=== PATIENT | male | born 1955 | race African-American/Black ===

== ENCOUNTER 2017-04-11 10:57 | Inpatient (IN) | payer OTHER ==
[~2017-04-11] VITALS: Ht 177.8 cm; Wt 80.3 kg
[~2017-04-11 10:57] MED LIST: AMLO10TA2 PO; AMLO5TAB2 PO; ASPI-630 PO; ATEN100T PO; ATOR40TA59 PO; CLON0.2T PO; FLUT12AE PO; IPRA3AMP NEB; LEVO500T59 PO; METF500T4 PO; METO100T11 PO; PANT40TA3 PO; PANT40TA5 PO; PROAIR HFA8.5 GM IH; RIVA10TA PO; VENTOLIN HFA18 GM PO
[2017-04-11] MEDS ORDERED: IPRATRPIUM/ALBUTEROL 0.5/2.5MG 3 ML NEBU. NEB ONE (11:00)
[2017-04-11] MEDS: ALBUTEROL SULFATE 2.5 MG/3 ML NEBU. NEB PRN (11:08)
[2017-04-11] MEDS ORDERED: methylPREDNISolone SOD SUCC PF 125 MG/2 ML VIAL. IV ONE (11:15)
[2017-04-11 11:20] LABS: BASO # 0.1 x10^3/uL (0.0-0.2); BASO % 1 % (0-3); EOS % 7 % (0-3); HEMATOCRIT 41.6 % (39.0-53.0); LYMPH # 2.7 x10^3/uL (1.0-4.8); LYMPH % 19 % (24-48); MEAN CORPUSCULAR HEMOGLOBIN 32 pg (25-35); MEAN CORPUSCULAR HGB CONC 34 g/dL (31-37); MEAN CORPUSCULAR VOLUME 94 fL (79-100); MONO % 6 % (0-9); NEUT % 67 % (31-73); PLATELET COUNT 234 x10^3/uL (140-400); RED BLOOD COUNT 4.43 x10^6/uL (4.30-5.70); WHITE BLOOD COUNT 13.7 x10^3/uL (4.0-11.0)
[2017-04-11 11:31] LABS: CALCIUM 8.7 mg/dL (8.5-10.1); GFR 91.6; POTASSIUM 4.1 mmol/L (3.5-5.1)
[2017-04-11 11:37] LABS: ALBUMIN 4.3 g/dL (3.4-5.0); DIRECT BILIRUBIN 0.2 mg/dL (0.0-0.2); TOTAL BILIRUBIN 0.8 mg/dL (0.2-1.0); TOTAL PROTEIN 7.4 g/dL (6.4-8.2)
--- NOTE | 2017-04-11 12:12 | RAD ---
Chest radiograph 04/11/2017 at 1201 hours Indication: Shortness of air Comparison: Chest radiograph 03/18/2016 at 0055 hours Technique: Single frontal view of the chest is provided. Findings: Cardiomediastinal silhouette is within normal limits. No pleural effusions, pulmonary vascular congestion or pneumothorax. The lungs are clear. Osseous structures are normal. Impression: No acute cardiopulmonary process.
[2017-04-11] MEDS ORDERED: MORPHINE SULFATE 2 MG/ML DISP.SYRIN. IV PRN (12:15)
[2017-04-11] MEDS ORDERED: ONDANSETRON PF 4 MG/2 ML VIAL. IV PRN (12:15)
--- NOTE | 2017-04-11 13:28 | PHYS DOC ---
Past Medical History Past Medical History: COPD, Diabetes-Type II, Hypertension, Vascular Disease, Other Additional Past Medical Histor: "blood clots" Past Surgical History: Other Additional Past Surgical Histo: L calf thrombectomy, RT FEM POP,CLIP PLACED IN COLON Alcohol Use: Occasionally Drug Use: None Adult General Chief Complaint Chief Complaint: DYSPNEA/RESPIRATOY DISTRESS HPI HPI 62-year-old male presenting to the emergency department today by EMS with a history of COPD with asthma/COPD acute respiratory distress. Per EMS report the patient received intramuscular epinephrine in route. The patient comes in on a nonrebreather. His shortness of breath started approximately 2 days ago. Location lungs. Duration intermittent. No alleviating or exacerbating factors present. Review of systems is negative for fevers chills cough abdominal pain nausea vomiting or diaphoresis. All other review of systems is negative unless otherwise noted in history of present illness. ED course: 62-year-old male presenting with acute respiratory distress. On initial evaluation the patient had diffuse wheezing with minimal breath sounds bilaterally and a severely prolonged expiratory phase. The patient was given 2 nebulizer therapies and placed on an hour-long treatment of albuterol. Chest x- ray and blood work sent. On reexamination approximately 20 minutes into the patient's course the patient significantly improved. Initially we coordinated the patient be placed on BiPAP which on reevaluation was unnecessary. Given the patient's improvement the patient was admitted to our med telemetry floor. Initially we had requested an ICU bed for him. I discussed this case with Dr. Jacobs who accepted the patient for admission. The patient was then admitted to our hospital for further evaluation workup and care. Pulmonology consult was placed. Review of Systems Review of Systems SEE ABOVE. Current Medications Current Medications Current Medications Medications (Trade) Dose Ordered Sig/Hailee Start Time Stop Time Status Last Admin Dose Admin Albuterol Sulfate (Ventolin Neb Soln) 2.5 mg PRN Q2HR PRN 04/11/17 11:00 04/11/17 11:08 2.5 MG Albuterol/ Ipratropium (Duoneb) 3 ml 1X ONCE 04/11/17 11:00 04/11/17 11:01 DC 04/11/17 11:07 3 ML Allergies Allergies Allergies Coded Allergies Type Severity Reaction Last Updated Verified Penicillins Allergy Intermediate rash 11/15/14 Yes Physical Exam Physical Exam SEE ABOVE Constitutional: Well developed, well nourished, initially the patient was in respiratory distress which improved within the first 15 minutes the patient's care. On the second examination, the patient was breathing more comfortably and not in any distress. HENT: Normocephalic, atraumatic, bilateral external ears normal, oropharynx moist, no oral exudates, nose normal. [] Eyes: PERRLA, EOMI, conjunctiva normal, no discharge. [] Neck: Normal range of motion, no tenderness, supple, no stridor. [] Cardiovascular:Heart rate regular rhythm, no murmur [] Lungs & Thorax: Wheezing bilaterally. Abdomen: Bowel sounds normal, soft, no tenderness, no masses, no pulsatile masses. [] Skin: Warm, dry, no erythema, no rash. [] Back: No tenderness, no CVA tenderness. [] Extremities: No tenderness, no cyanosis, no clubbing, ROM intact, no edema. [] Neurologic: Alert and oriented X 3, normal motor function, normal sensory function, no focal deficits noted. [] Psychologic: Affect normal, judgement normal, mood normal. [] Current Patient Data Vital Signs Vital Signs Date Time Temp Pulse Resp B/P (MAP) Pulse Ox O2 Delivery O2 Flow Rate FiO2 04/11/17 10:59 120 153/87 (109) 100 NonRebreather Mask Lab Values Laboratory Tests Test 04/11/17 11:00 White Blood Count 13.7 x10^3/uL (4.0-11.0) H Red Blood Count 4.43 x10^6/uL (4.30-5.70) Hemoglobin 14.0 g/dL (13.0-17.5) Hematocrit 41.6 % (39.0-53.0) Mean Corpuscular Volume 94 fL (79-100) Mean Corpuscular Hemoglobin 32 pg (25-35) Mean Corpuscular Hemoglobin Concent 34 g/dL (31-37) Red Cell Distribution Width 14.0 % (11.5-14.5) Platelet Count 234 x10^3/uL (140-400) Neutrophils (%) (Auto) 67 % (31-73) Lymphocytes (%) (Auto) 19 % (24-48) L Monocytes (%) (Auto) 6 % (0-9) Eosinophils (%) (Auto) 7 % (0-3) H Basophils (%) (Auto) 1 % (0-3) Neutrophils # (Auto) 9.1 x10^3uL (1.8-7.7) H Lymphocytes # (Auto) 2.7 x10^3/uL (1.0-4.8) Monocytes # (Auto) 0.9 x10^3/uL (0.0-1.1) Eosinophils # (Auto) 0.9 x10^3/uL (0.0-0.7) H Basophils # (Auto) 0.1 x10^3/uL (0.0-0.2) Sodium Level 136 mmol/L (136-145) Potassium Level 4.1 mmol/L (3.5-5.1) Chloride Level 99 mmol/L (98-107) Carbon Dioxide Level 26 mmol/L (21-32) Anion Gap 11 (6-14) Blood Urea Nitrogen 11 mg/dL (8-26) Creatinine 1.0 mg/dL (0.7-1.3) Estimated GFR (Cockcroft-Gault) 91.6 Glucose Level 253 mg/dL (70-99) H Calcium Level 8.7 mg/dL (8.5-10.1) Total Bilirubin 0.8 mg/dL (0.2-1.0) Direct Bilirubin 0.2 mg/dL (0.0-0.2) Aspartate Amino Transferase (AST) 26 U/L (15-37) Alanine Aminotransferase (ALT) 39 U/L (16-63) Alkaline Phosphatase 72 U/L (46-116) Troponin I Quantitative < 0.017 ng/mL (0.000-0.055) SR-Rds-I-Type Natriuretic Peptide 13 pg/mL (0-124) Total Protein 7.4 g/dL (6.4-8.2) Albumin 4.3 g/dL (3.4-5.0) Lipase 127 U/L (73-393) Laboratory Tests 04/11/17 11:00 Laboratory Tests 04/11/17 11:00 EKG EKG [] Radiology/Procedures Radiology/Procedures [] Course & Med Decision Making Course & Med Decision Making Pertinent Labs and Imaging studies reviewed. (See chart for details) [] Dragon Disclaimer Dragon Disclaimer This electronic medical record was generated, in whole or in part, using a voice recognition dictation system. Departure Departure Impression: Primary Impression: COPD with acute exacerbation Additional Impression: Respiratory failure, [id number] Disposition: ADMITTED INPATIENT Admitting Physician: Rakel Jacobs Condition: STABLE Referrals: DHAVAL BILLINGS MD (PCP) Critical Care Time Critical care time was [40] minutes exclusive of procedures. Time was spent evaluating the patient, ordering the administration of medications, discussing with many provider, reviewing the patient's blood work and chest x-ray and documenting. Problem Qualifiers SEE ESTRADA MD Apr 11, 2017 13:28
--- NOTE | 2017-04-11 13:40 | EKG ---
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
--- NOTE | 2017-04-11 13:41 | ACF ---
Admit Criteria Forms Admit Criteria Forms Admit Criteria Forms RESPIRATORY FAILURE GRG ( Place 'X' for any and all applicable criteria): Hospital admission is needed for appropriate care of the patient because of acute respiratory failure or insufficiency as indicated by 1 or more of the following (1)(2)(3)(4)(5)(6)(7)(8 ): [X]I. Mechanical ventilation needed (acute invasive or noninvasive) [ ]II. Severe ventilation deficit as indicated by 1 or more of the following ( 9) [ ]a) Uncompensated Respiratory acidosis (pH < 7.35 and PaCO2 > 40 mmHg (5.3 kPa)) [ ]b) Airflow measurements < 25% of predicted (eg, PEFR < 100 L/min) [ ]c) FVC < 15 mL/kg of ideal body weight, or 50% decrease in vital capacity from baseline [ ]III. Noncardiac pulmonary edema not resolving with rapid emergency treatment (8) [ ]IV. Severe respiratory distress as indicated by 1 or more of the following: [ ]a) Severe tachypnea (respiratory rate greater than 30, greater than 45 for 6-month-old, greater than 60 for ) [ ]b) Severe hypoxemia (partial pressure of oxygen less than 50 mm Hg ( 6.7 kPa) on greater than 50% oxygen or partial pressure of oxygen to FIO2 ratio less than 200) [ ]c) Mental status deterioration from respiratory disease [ ]V. Airway obstruction or inadequate protection [A](10)(11) The original [employer] content created by [employer] has been revised. The portions of the content which have been revised are identified through the use of italic text, and [employer] has neither reviewed nor approved the modified material. All other unmodified content is copyright [employer]. Please see references footnoted in the original [employer] edition 2014 TRUE [employer]ER Apr 11, 2017 13:41
[2017-04-11 14:35] VITALS: BP 128/84
[2017-04-11 14:44] VITALS: BP 128/84
--- NOTE | 2017-04-11 14:45 | PDOC ---
Provider Note Provider Note dictated GHANSHYAM LOMBARDI MD Apr 11, 2017 14:45
[2017-04-11] MEDS: DOXYCYCLINE HYCLATE 100 MG TABLET PO SCH ×2 (15:00→21:01)
--- NOTE | 2017-04-11 15:24 | CONS ---
DATE OF CONSULTATION: 04/11/2017 PULMONARY CONSULTATION ATTENDING PHYSICIAN: Dr. Jacobs. REASON FOR CONSULTATION: Chronic obstructive pulmonary disease exacerbation. HISTORY OF PRESENT ILLNESS: The patient is a pleasant 62-year-old male who has a history of chronic obstructive airway disease. He smoked for 40 years. He was brought into the hospital after he started to have shortness of breath when he was at [employer]. He said he started to have some cough with yellow sputum production. No fever, no chills, no chest pain, no leg edema. No nausea, vomiting, no diarrhea. He called 911 and was brought into the Emergency Room, he was wheezing. He was given back to back breathing treatments and was placed on BiPAP and then he made clinical improvement and was subsequently taken off the BiPAP and placed on nasal cannula. His chest x-ray was clear. He feels much better. I have been asked to see him for further evaluation. PAST MEDICAL HISTORY: History of COPD, may be an asthmatic component as well; history of type 2 diabetes; hypertension; peripheral vascular disease; history of arterial clots. PAST SURGICAL HISTORY: Left calf thrombectomy, right femoral popliteal surgery; and a clipping placed in the colon. ALLERGIES: PENICILLIN. CURRENT MEDICATIONS: Reviewed as listed in the MRAD including DuoNeb. REVIEW OF SYSTEMS: Twelve-point system obtained. Pertinent positives discussed in my history of present illness, otherwise noncontributory. All systems that were negative were reviewed as well. SOCIAL HISTORY: Smoked for 40 years before quitting 5 years ago. FAMILY HISTORY: Noncontributory to lungs. PHYSICAL EXAMINATION: VITAL SIGNS: Reviewed, they are more stable now. Pulse ox 96% on 2 liters, afebrile. HEENT: Sclerae nonicteric. NECK: Supple. LUNGS: With prolonged expiratory phase and wheezing has resolved. CARDIOVASCULAR: Regular rate and rhythm. ABDOMEN: Soft. EXTREMITIES: With signs of previous vascular surgeries, no pitting edema. LABORATORY DATA: Reviewed. BUN 11, creatinine 1.0, white cell count 13.7, hemoglobin 14.0, platelets are 234. IMPRESSION: 1. Acute hypoxic respiratory failure secondary to acute exacerbation of chronic obstructive pulmonary disease. 2. Acute bronchitis. 3. No definite pneumonia seen on the chest x-ray. 4. Leukocytosis could be secondary to acute bronchitis versus stress induced. RECOMMENDATIONS: 1. Continue with present bronchodilators or DuoNebs. 2. Add oral p.o. antibiotics that bronchitis maybe the trigger. 3. Wean off oxygen. 4. Clinically has done well and he could be discharged in the next 24 hours. GHANSHYAM LOMBARDI MD DR: JAYLA/tamia JOB#: [id number] / [id number] MARYANNE Irizarry
[2017-04-11] MEDS: IPRATRPIUM/ALBUTEROL 0.5/2.5MG 3 ML NEBU. NEB SCH ×3 (16:04→19:53)
[2017-04-11] MEDS ORDERED: PRED5TAB PO (16:17)
[2017-04-11] MEDS ORDERED: VENTOLIN HFA18 GM INH (16:17)
[2017-04-11] MEDS ORDERED: BECL8.7A7 INH (16:17)
[2017-04-11] MEDS ORDERED: GUAI118L20 PO (16:17)
[2017-04-11] MEDS ORDERED: METF500T9 PO (16:17)
[2017-04-11] MEDS ORDERED: ACLI400A2 INH (16:17)
--- NOTE | 2017-04-11 17:01 | HP ---
ADMIT DATE: 04/11/2017 CHIEF COMPLAINT: Shortness of breath. HISTORY OF PRESENT ILLNESS: The patient is a pleasant 62-year-old male who used to smoke heavily. He has known COPD, basically presented with respiratory failure. We were afraid he might be intubated, but after a few breathing treatments and some IV steroids, he is doing a little better. He is now being admitted to telemetry. PAST MEDICAL HISTORY: COPD, diabetes, hypertension, hyperlipidemia, peripheral vascular disease with stents. He has also got left thrombectomy on the left leg and right femoral popliteal bypass, a clip placed in the colon. ALLERGIES: PENICILLIN. FAMILY HISTORY: Hypertension. SOCIAL HISTORY: He is retired. He quit smoking a couple years ago. No drinking or drugs. MEDICATIONS: Reviewed. REVIEW OF SYSTEMS: GENERAL: No history of weight change, weakness or fevers. SKIN: No bruising, hair changes or rashes. EYES: No blurred, double or loss of vision. NOSE AND THROAT: No history of nosebleeds, hoarseness or sore throat. HEART: No history of palpitations, chest pain or shortness of breath on exertion. LUNGS: He complains of shortness of breath. GASTROINTESTINAL: Denies changes in appetite, nausea, vomiting, diarrhea or constipation. GENITOURINARY: No history of frequency, urgency, hesitancy or nocturia. NEUROLOGIC: Denies history of numbness, tingling, tremor or weakness. PSYCHIATRIC: No history of panic, anxiety or depression. ENDOCRINE: No history of heat or cold intolerance, polyuria or polydipsia. EXTREMITIES: Denies muscle weakness, joint pain, pain on walking or stiffness. PHYSICAL EXAMINATION: VITAL SIGNS: Temperature afebrile, pulse 92, respirations 18, blood pressure 113/74, O2 sat 96% on 2 liters. GENERAL: He is alert, cooperative. HEART: Normal S1, S2. LUNGS: Diffuse wheezing. ABDOMEN: Soft, positive bowel sounds. EXTREMITIES: Trace edema. Pedal pulses are distant. ENDOCRINE: No thyromegaly. LYMPHATICS: No cervical nodes. HEMATOPOIETIC: No bruising. LABORATORY DATA: White count 14, hemoglobin 14, platelets 234. Electrolytes are normal other than glucose of 253. Troponin is 0. Chest x-ray shows no acute cardiopulmonary disease. ASSESSMENT AND PLAN: Respiratory failure secondary to chronic obstructive pulmonary disease exacerbation. The patient will be admitted. We will treat with IV steroids, breathing treatments, oxygen and antibiotics. Consult Pulmonary Medicine. Continue home medicines. MARYANNE DIETZ DO DR: VALENTE/tamia JOB#: [id number] / [id number]
[2017-04-11] MEDS ORDERED: DEXTROSE 50% 25 GM / 50ML DISP.SYRIN. IV PRN (17:45)
[2017-04-11 19:29] VITALS: BP 128/80
[2017-04-11 23:06] VITALS: BP 141/84
[2017-04-12 03:32] VITALS: BP 138/91
[2017-04-12] MEDS: ALBUTEROL SULFATE 2.5 MG/3 ML NEBU. NEB PRN ×2 (03:32→08:26)
[2017-04-12 04:56] LABS: BASO % 0 % (0-3); EOS % 0 % (0-3); HEMATOCRIT 41.7 % (39.0-53.0); HEMOGLOBIN 13.6 g/dL (13.0-17.5); LYMPH # 0.8 x10^3/uL (1.0-4.8); LYMPH % 6 % (24-48); MEAN CORPUSCULAR HEMOGLOBIN 31 pg (25-35); MEAN CORPUSCULAR HGB CONC 33 g/dL (31-37); MEAN CORPUSCULAR VOLUME 96 fL (79-100); MONO % 2 % (0-9); NEUT % 93 % (31-73); PLATELET COUNT 218 x10^3/uL (140-400); RED BLOOD COUNT 4.37 x10^6/uL (4.30-5.70); RED CELL DISTRIBUTION WIDTH 14.2 % (11.5-14.5); WHITE BLOOD COUNT 14.6 x10^3/uL (4.0-11.0)
[2017-04-12 05:22] LABS: CALCIUM 9.2 mg/dL (8.5-10.1); CREATININE 0.9 mg/dL (0.7-1.3); GFR 103.5; POTASSIUM 4.4 mmol/L (3.5-5.1)
[2017-04-12 05:31] LABS: PLT ESTIMATE ADEQUATE (ADEQUATE)
[2017-04-12] MEDS: IPRATRPIUM/ALBUTEROL 0.5/2.5MG 3 ML NEBU. NEB SCH ×5 (06:30→20:00)
[2017-04-12 06:55] VITALS: BP 133/84
[2017-04-12] MEDS ORDERED: INSULIN ASPART 300 UNITS/3 ML INSULN.PEN SQ SCH (08:00)
[2017-04-12] MEDS: DOXYCYCLINE HYCLATE 100 MG TABLET PO SCH ×2 (08:05→21:27)
[2017-04-12] MEDS ORDERED: DEXTROSE 50% 25 GM / 50ML DISP.SYRIN. IV PRN (10:00)
[2017-04-12] MEDS ORDERED: methylPREDNISolone SOD SUCC PF 40 MG/ML VIAL. IV SCH (10:00)
--- NOTE | 2017-04-12 10:17 | PDOC ---
PULMONARY PROGRESS NOTES Subjective increase SOA and wheezing Vitals Vital Signs Date Time Temp Pulse Resp B/P (MAP) Pulse Ox O2 Delivery O2 Flow Rate FiO2 04/12/17 10:11 Nasal Cannula 2.0 04/12/17 06:55 97.7 94 17 133/84 (100) 98 97.7 General: Alert, Mild Distress Lungs: Wheezing (bilateral) Cardiovascular: S1 Abdomen: Soft Neuro Exam: Alert Extremities: No Edema Skin: Warm Labs Laboratory Tests Test 04/11/17 11:00 04/11/17 17:15 04/11/17 20:46 04/12/17 03:30 White Blood Count 13.7 x10^3/uL (4.0-11.0) 14.6 x10^3/uL (4.0-11.0) Red Blood Count 4.43 x10^6/uL (4.30-5.70) 4.37 x10^6/uL (4.30-5.70) Hemoglobin 14.0 g/dL (13.0-17.5) 13.6 g/dL (13.0-17.5) Hematocrit 41.6 % (39.0-53.0) 41.7 % (39.0-53.0) Mean Corpuscular Volume 94 fL (79-100) 96 fL (79-100) Mean Corpuscular Hemoglobin 32 pg (25-35) 31 pg (25-35) Mean Corpuscular Hemoglobin Concent 34 g/dL (31-37) 33 g/dL (31-37) Red Cell Distribution Width 14.0 % (11.5-14.5) 14.2 % (11.5-14.5) Platelet Count 234 x10^3/uL (140-400) 218 x10^3/uL (140-400) Neutrophils (%) (Auto) 67 % (31-73) 93 % (31-73) Lymphocytes (%) (Auto) 19 % (24-48) 6 % (24-48) Monocytes (%) (Auto) 6 % (0-9) 2 % (0-9) Eosinophils (%) (Auto) 7 % (0-3) 0 % (0-3) Basophils (%) (Auto) 1 % (0-3) 0 % (0-3) Neutrophils # (Auto) 9.1 x10^3uL (1.8-7.7) 13.6 x10^3uL (1.8-7.7) Lymphocytes # (Auto) 2.7 x10^3/uL (1.0-4.8) 0.8 x10^3/uL (1.0-4.8) Monocytes # (Auto) 0.9 x10^3/uL (0.0-1.1) 0.2 x10^3/uL (0.0-1.1) Eosinophils # (Auto) 0.9 x10^3/uL (0.0-0.7) 0.0 x10^3/uL (0.0-0.7) Basophils # (Auto) 0.1 x10^3/uL (0.0-0.2) 0.0 x10^3/uL (0.0-0.2) Sodium Level 136 mmol/L (136-145) 135 mmol/L (136-145) Potassium Level 4.1 mmol/L (3.5-5.1) 4.4 mmol/L (3.5-5.1) Chloride Level 99 mmol/L (98-107) 99 mmol/L (98-107) Carbon Dioxide Level 26 mmol/L (21-32) 24 mmol/L (21-32) Anion Gap 11 (6-14) 12 (6-14) Blood Urea Nitrogen 11 mg/dL (8-26) 11 mg/dL (8-26) Creatinine 1.0 mg/dL (0.7-1.3) 0.9 mg/dL (0.7-1.3) Estimated GFR (Cockcroft-Gault) 91.6 103.5 Glucose Level 253 mg/dL (70-99) 184 mg/dL (70-99) Calcium Level 8.7 mg/dL (8.5-10.1) 9.2 mg/dL (8.5-10.1) Total Bilirubin 0.8 mg/dL (0.2-1.0) Direct Bilirubin 0.2 mg/dL (0.0-0.2) Aspartate Amino Transf (AST/SGOT) 26 U/L (15-37) Alanine Aminotransferase (ALT/SGPT) 39 U/L (16-63) Alkaline Phosphatase 72 U/L (46-116) Troponin I Quantitative < 0.017 ng/mL (0.000-0.055) RN-Fjs-M-Type Natriuretic Peptide 13 pg/mL (0-124) Total Protein 7.4 g/dL (6.4-8.2) Albumin 4.3 g/dL (3.4-5.0) Lipase 127 U/L (73-393) Glucose (Fingerstick) 265 mg/dL (70-99) 232 mg/dL (70-99) Segmented Neutrophils % 87 % (35-66) Band Neutrophils % 2 % (0-9) Lymphocytes % 9 % (24-48) Monocytes % 2 % (0-10) Platelet Estimate Adequate (ADEQUATE) Test 04/12/17 06:58 Glucose (Fingerstick) 185 mg/dL (70-99) Laboratory Tests Test 04/11/17 11:00 04/11/17 17:15 04/11/17 20:46 04/12/17 03:30 White Blood Count 13.7 x10^3/uL (4.0-11.0) 14.6 x10^3/uL (4.0-11.0) Red Blood Count 4.43 x10^6/uL (4.30-5.70) 4.37 x10^6/uL (4.30-5.70) Hemoglobin 14.0 g/dL (13.0-17.5) 13.6 g/dL (13.0-17.5) Hematocrit 41.6 % (39.0-53.0) 41.7 % (39.0-53.0) Mean Corpuscular Volume 94 fL (79-100) 96 fL (79-100) Mean Corpuscular Hemoglobin 32 pg (25-35) 31 pg (25-35) Mean Corpuscular Hemoglobin Concent 34 g/dL (31-37) 33 g/dL (31-37) Red Cell Distribution Width 14.0 % (11.5-14.5) 14.2 % (11.5-14.5) Platelet Count 234 x10^3/uL (140-400) 218 x10^3/uL (140-400) Neutrophils (%) (Auto) 67 % (31-73) 93 % (31-73) Lymphocytes (%) (Auto) 19 % (24-48) 6 % (24-48) Monocytes (%) (Auto) 6 % (0-9) 2 % (0-9) Eosinophils (%) (Auto) 7 % (0-3) 0 % (0-3) Basophils (%) (Auto) 1 % (0-3) 0 % (0-3) Neutrophils # (Auto) 9.1 x10^3uL (1.8-7.7) 13.6 x10^3uL (1.8-7.7) Lymphocytes # (Auto) 2.7 x10^3/uL (1.0-4.8) 0.8 x10^3/uL (1.0-4.8) Monocytes # (Auto) 0.9 x10^3/uL (0.0-1.1) 0.2 x10^3/uL (0.0-1.1) Eosinophils # (Auto) 0.9 x10^3/uL (0.0-0.7) 0.0 x10^3/uL (0.0-0.7) Basophils # (Auto) 0.1 x10^3/uL (0.0-0.2) 0.0 x10^3/uL (0.0-0.2) Sodium Level 136 mmol/L (136-145) 135 mmol/L (136-145) Potassium Level 4.1 mmol/L (3.5-5.1) 4.4 mmol/L (3.5-5.1) Chloride Level 99 mmol/L (98-107) 99 mmol/L (98-107) Carbon Dioxide Level 26 mmol/L (21-32) 24 mmol/L (21-32) Anion Gap 11 (6-14) 12 (6-14) Blood Urea Nitrogen 11 mg/dL (8-26) 11 mg/dL (8-26) Creatinine 1.0 mg/dL (0.7-1.3) 0.9 mg/dL (0.7-1.3) Estimated GFR (Cockcroft-Gault) 91.6 103.5 Glucose Level 253 mg/dL (70-99) 184 mg/dL (70-99) Calcium Level 8.7 mg/dL (8.5-10.1) 9.2 mg/dL (8.5-10.1) Total Bilirubin 0.8 mg/dL (0.2-1.0) Direct Bilirubin 0.2 mg/dL (0.0-0.2) Aspartate Amino Transf (AST/SGOT) 26 U/L (15-37) Alanine Aminotransferase (ALT/SGPT) 39 U/L (16-63) Alkaline Phosphatase 72 U/L (46-116) Troponin I Quantitative < 0.017 ng/mL (0.000-0.055) UL-Hga-B-Type Natriuretic Peptide 13 pg/mL (0-124) Total Protein 7.4 g/dL (6.4-8.2) Albumin 4.3 g/dL (3.4-5.0) Lipase 127 U/L (73-393) Glucose (Fingerstick) 265 mg/dL (70-99) 232 mg/dL (70-99) Segmented Neutrophils % 87 % (35-66) Band Neutrophils % 2 % (0-9) Lymphocytes % 9 % (24-48) Monocytes % 2 % (0-10) Platelet Estimate Adequate (ADEQUATE) Test 04/12/17 06:58 Glucose (Fingerstick) 185 mg/dL (70-99) Medications Active Scripts Medications Dose Route/Sig Max Daily Dose Days Date Category Tudorza Pressair (Aclidinium [place]) 400 Mcg Aer.pow.ba 400 Mcg INH 04/11/17 Reported Qvar 40MCG Inhaler (Beclomethasone Dipropionate) 8.7 Gm Aer.w.adap 40 Mcg INH 04/11/17 Reported Cheratussin Ac Syrup (Guaifenesin/Codeine Phosphate) 118 Ml Liquid 118 Ml PO 04/11/17 Reported Prednisone 5 Mg Tablet 5 Mg PO 04/11/17 Reported Metformin Hcl Er (Metformin Hcl) 500 Mg Tab.er.24h 500 Mg PO DAILY 04/11/17 Reported Pantoprazole Sodium 40 Mg Tablet.dr 40 Mg PO DAILYAC 15 03/18/16 Rx Levaquin (Levofloxacin) 500 Mg Tablet 500 Mg PO DAILY06 5 03/18/16 Rx Ventolin Hfa Inhaler (Albuterol Sulfate) 18 Gm Hfa.aer.ad 2 Puff PO Q4HRS PRN 03/18/16 Reported Duoneb 0.5-3(2.5) Mg/3 Ml (Albuterol/Ipratropium) 3 Ml Ampul.neb 3 Ml NEB QID 03/18/16 Reported Amlodipine Besylate 10 Mg Tablet 10 Mg PO DAILY 03/18/16 Reported Metoprolol Succinate ( Xl ) (Metoprolol Succinate) 100 Mg Tab.er.24h 100 Mg PO DAILY 03/18/16 Reported Aspirin 81 Mg Tab.chew 1 Tab PO DAILY 03/18/16 Reported Atorvastatin Calcium 40 Mg Tablet 1 Tab PO DAILY 10/09/14 Reported Impression . 1. Acute hypoxic respiratory failure secondary to acute exacerbation of chronic obstructive pulmonary disease. wheezing worse today 2. Acute bronchitis. 3. No definite pneumonia seen on the chest x-ray. 4. Leukocytosis could be secondary to acute bronchitis versus stress induced. Plan . 1. Continue with present bronchodilators DuoNebs.increase to q 4 hr 2. p.o. antibiotics that bronchitis maybe the trigger. 3. oxygen. 4. add solumedrol 5. BIPAP till improved GHANSHYAM LOMBARDI MD Apr 12, 2017 10:17
[2017-04-12 10:30] VITALS: BP 140/89
[2017-04-12] MEDS ORDERED: methylPREDNISolone SOD SUCC PF 40 MG/ML VIAL. IV ONE (10:30)
--- NOTE | 2017-04-12 11:35 | EKG ---
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
[2017-04-12] MEDS: PANTOPRAZOLE 40 MG TABLET.DR. PO SCH (12:03)
[2017-04-12] MEDS: metFORMIN XR 500 MG TAB.ER.24H PO SCH (12:03)
[2017-04-12] MEDS: amLODIPine BESYLATE 10 MG TABLET PO SCH (12:04)
[2017-04-12] MEDS: ASPIRIN CHEWABLE 81 MG TABLET. PO SCH (12:04)
[2017-04-12] MEDS: METOPROLOL SUCC 24HR ER 100 MG TAB.ER.24H. PO SCH (12:04)
[2017-04-12] MEDS: INSULIN ASPART 300 UNITS/3 ML INSULN.PEN SQ SCH ×2 (12:08→17:45)
[2017-04-12 12:30] LABS: CKMB MASS 2.1 ng/mL (0.0-3.6)
--- NOTE | 2017-04-12 13:53 | PDOC ---
PROGRESS NOTES Chief Complaint Chief Complaint . 1. Acute hypoxic respiratory failure secondary to acute exacerbation of chronic obstructive pulmonary disease. 2. Acute bronchitis. 3. No definite pneumonia seen on the chest x-ray. 4. Leukocytosis could be secondary to acute bronchitis versus stress induced. 5. Ex smoker, quit many yrs ago History of Present Illness History of Present Illness Called early this AM by RN as pt was so SOA, chest tightness, wheezing bad GOt solu 125 at ER Sats good Seen now, wheezy BUt better after we have started reg steroids IV Not on any inhalers steroids at home -discussed heavy about this Quit smoking many yrs ago\ Gets panicky once he cant catch his breath Tolerating BIPAP when needed\ Was on NRB mask upon ER arrival Slated to see [facility]P [facility] in april PLAN: Strat MARIANELA steroids Solu 40 IV TID Tessalon perles BIPAP prn Appreciate pulmo December dc serial CE Vitals Vitals Vital Signs Date Time Temp Pulse Resp B/P (MAP) Pulse Ox O2 Delivery O2 Flow Rate FiO2 04/12/17 12:04 104 140/89 04/12/17 10:30 97.5 24 97 Nasal Cannula 2.0 97.5 Physical Exam General: Alert, Oriented X3, Cooperative, No acute distress Heart: Regular rate Lungs: Wheezing (bilateral) Abdomen: Normal bowel sounds, Soft, No tenderness Extremities: No clubbing, No cyanosis, No edema Skin: No significant lesion Labs LABS Laboratory Tests Test 04/11/17 17:15 04/11/17 20:46 04/12/17 03:30 04/12/17 06:58 Glucose (Fingerstick) 265 mg/dL (70-99) 232 mg/dL (70-99) 185 mg/dL (70-99) White Blood Count 14.6 x10^3/uL (4.0-11.0) Red Blood Count 4.37 x10^6/uL (4.30-5.70) Hemoglobin 13.6 g/dL (13.0-17.5) Hematocrit 41.7 % (39.0-53.0) Mean Corpuscular Volume 96 fL (79-100) Mean Corpuscular Hemoglobin 31 pg (25-35) Mean Corpuscular Hemoglobin Concent 33 g/dL (31-37) Red Cell Distribution Width 14.2 % (11.5-14.5) Platelet Count 218 x10^3/uL (140-400) Neutrophils (%) (Auto) 93 % (31-73) Lymphocytes (%) (Auto) 6 % (24-48) Monocytes (%) (Auto) 2 % (0-9) Eosinophils (%) (Auto) 0 % (0-3) Basophils (%) (Auto) 0 % (0-3) Neutrophils # (Auto) 13.6 x10^3uL (1.8-7.7) Lymphocytes # (Auto) 0.8 x10^3/uL (1.0-4.8) Monocytes # (Auto) 0.2 x10^3/uL (0.0-1.1) Eosinophils # (Auto) 0.0 x10^3/uL (0.0-0.7) Basophils # (Auto) 0.0 x10^3/uL (0.0-0.2) Segmented Neutrophils % 87 % (35-66) Band Neutrophils % 2 % (0-9) Lymphocytes % 9 % (24-48) Monocytes % 2 % (0-10) Platelet Estimate Adequate (ADEQUATE) Sodium Level 135 mmol/L (136-145) Potassium Level 4.4 mmol/L (3.5-5.1) Chloride Level 99 mmol/L (98-107) Carbon Dioxide Level 24 mmol/L (21-32) Anion Gap 12 (6-14) Blood Urea Nitrogen 11 mg/dL (8-26) Creatinine 0.9 mg/dL (0.7-1.3) Estimated GFR (Cockcroft-Gault) 103.5 Glucose Level 184 mg/dL (70-99) Calcium Level 9.2 mg/dL (8.5-10.1) Test 04/12/17 11:22 04/12/17 11:45 Glucose (Fingerstick) 208 mg/dL (70-99) Creatine Kinase 101 U/L (39-308) Creatine Kinase MB (Mass) 2.1 ng/mL (0.0-3.6) Creatine Kinase MB Relative Index 2.1 % (0-4) Troponin I Quantitative < 0.017 ng/mL (0.000-0.055) Review of Systems Review of Systems cough, wheezy, no fevers, no headaches Assessment and Plan Assessmemt and Plan Problems Medical Problems: (1) COPD with acute exacerbation Status: Acute (2) Respiratory failure, [id number] Status: Acute Problems: Comment Review of Relevant I have reviewed the following items arya (where applicable) has been applied. Labs Laboratory Tests Test 04/11/17 11:00 04/11/17 17:15 04/11/17 20:46 04/12/17 03:30 White Blood Count 13.7 x10^3/uL (4.0-11.0) 14.6 x10^3/uL (4.0-11.0) Red Blood Count 4.43 x10^6/uL (4.30-5.70) 4.37 x10^6/uL (4.30-5.70) Hemoglobin 14.0 g/dL (13.0-17.5) 13.6 g/dL (13.0-17.5) Hematocrit 41.6 % (39.0-53.0) 41.7 % (39.0-53.0) Mean Corpuscular Volume 94 fL (79-100) 96 fL (79-100) Mean Corpuscular Hemoglobin 32 pg (25-35) 31 pg (25-35) Mean Corpuscular Hemoglobin Concent 34 g/dL (31-37) 33 g/dL (31-37) Red Cell Distribution Width 14.0 % (11.5-14.5) 14.2 % (11.5-14.5) Platelet Count 234 x10^3/uL (140-400) 218 x10^3/uL (140-400) Neutrophils (%) (Auto) 67 % (31-73) 93 % (31-73) Lymphocytes (%) (Auto) 19 % (24-48) 6 % (24-48) Monocytes (%) (Auto) 6 % (0-9) 2 % (0-9) Eosinophils (%) (Auto) 7 % (0-3) 0 % (0-3) Basophils (%) (Auto) 1 % (0-3) 0 % (0-3) Neutrophils # (Auto) 9.1 x10^3uL (1.8-7.7) 13.6 x10^3uL (1.8-7.7) Lymphocytes # (Auto) 2.7 x10^3/uL (1.0-4.8) 0.8 x10^3/uL (1.0-4.8) Monocytes # (Auto) 0.9 x10^3/uL (0.0-1.1) 0.2 x10^3/uL (0.0-1.1) Eosinophils # (Auto) 0.9 x10^3/uL (0.0-0.7) 0.0 x10^3/uL (0.0-0.7) Basophils # (Auto) 0.1 x10^3/uL (0.0-0.2) 0.0 x10^3/uL (0.0-0.2) Sodium Level 136 mmol/L (136-145) 135 mmol/L (136-145) Potassium Level 4.1 mmol/L (3.5-5.1) 4.4 mmol/L (3.5-5.1) Chloride Level 99 mmol/L (98-107) 99 mmol/L (98-107) Carbon Dioxide Level 26 mmol/L (21-32) 24 mmol/L (21-32) Anion Gap 11 (6-14) 12 (6-14) Blood Urea Nitrogen 11 mg/dL (8-26) 11 mg/dL (8-26) Creatinine 1.0 mg/dL (0.7-1.3) 0.9 mg/dL (0.7-1.3) Estimated GFR (Cockcroft-Gault) 91.6 103.5 Glucose Level 253 mg/dL (70-99) 184 mg/dL (70-99) Calcium Level 8.7 mg/dL (8.5-10.1) 9.2 mg/dL (8.5-10.1) Total Bilirubin 0.8 mg/dL (0.2-1.0) Direct Bilirubin 0.2 mg/dL (0.0-0.2) Aspartate Amino Transf (AST/SGOT) 26 U/L (15-37) Alanine Aminotransferase (ALT/SGPT) 39 U/L (16-63) Alkaline Phosphatase 72 U/L (46-116) Troponin I Quantitative < 0.017 ng/mL (0.000-0.055) QE-Djl-I-Type Natriuretic Peptide 13 pg/mL (0-124) Total Protein 7.4 g/dL (6.4-8.2) Albumin 4.3 g/dL (3.4-5.0) Lipase 127 U/L (73-393) Glucose (Fingerstick) 265 mg/dL (70-99) 232 mg/dL (70-99) Segmented Neutrophils % 87 % (35-66) Band Neutrophils % 2 % (0-9) Lymphocytes % 9 % (24-48) Monocytes % 2 % (0-10) Platelet Estimate Adequate (ADEQUATE) Test 04/12/17 06:58 04/12/17 11:22 04/12/17 11:45 Glucose (Fingerstick) 185 mg/dL (70-99) 208 mg/dL (70-99) Creatine Kinase 101 U/L (39-308) Creatine Kinase MB (Mass) 2.1 ng/mL (0.0-3.6) Creatine Kinase MB Relative Index 2.1 % (0-4) Troponin I Quantitative < 0.017 ng/mL (0.000-0.055) Laboratory Tests Test 04/11/17 17:15 04/11/17 20:46 04/12/17 03:30 04/12/17 06:58 Glucose (Fingerstick) 265 mg/dL (70-99) 232 mg/dL (70-99) 185 mg/dL (70-99) White Blood Count 14.6 x10^3/uL (4.0-11.0) Red Blood Count 4.37 x10^6/uL (4.30-5.70) Hemoglobin 13.6 g/dL (13.0-17.5) Hematocrit 41.7 % (39.0-53.0) Mean Corpuscular Volume 96 fL (79-100) Mean Corpuscular Hemoglobin 31 pg (25-35) Mean Corpuscular Hemoglobin Concent 33 g/dL (31-37) Red Cell Distribution Width 14.2 % (11.5-14.5) Platelet Count 218 x10^3/uL (140-400) Neutrophils (%) (Auto) 93 % (31-73) Lymphocytes (%) (Auto) 6 % (24-48) Monocytes (%) (Auto) 2 % (0-9) Eosinophils (%) (Auto) 0 % (0-3) Basophils (%) (Auto) 0 % (0-3) Neutrophils # (Auto) 13.6 x10^3uL (1.8-7.7) Lymphocytes # (Auto) 0.8 x10^3/uL (1.0-4.8) Monocytes # (Auto) 0.2 x10^3/uL (0.0-1.1) Eosinophils # (Auto) 0.0 x10^3/uL (0.0-0.7) Basophils # (Auto) 0.0 x10^3/uL (0.0-0.2) Segmented Neutrophils % 87 % (35-66) Band Neutrophils % 2 % (0-9) Lymphocytes % 9 % (24-48) Monocytes % 2 % (0-10) Platelet Estimate Adequate (ADEQUATE) Sodium Level 135 mmol/L (136-145) Potassium Level 4.4 mmol/L (3.5-5.1) Chloride Level 99 mmol/L (98-107) Carbon Dioxide Level 24 mmol/L (21-32) Anion Gap 12 (6-14) Blood Urea Nitrogen 11 mg/dL (8-26) Creatinine 0.9 mg/dL (0.7-1.3) Estimated GFR (Cockcroft-Gault) 103.5 Glucose Level 184 mg/dL (70-99) Calcium Level 9.2 mg/dL (8.5-10.1) Test 04/12/17 11:22 04/12/17 11:45 Glucose (Fingerstick) 208 mg/dL (70-99) Creatine Kinase 101 U/L (39-308) Creatine Kinase MB (Mass) 2.1 ng/mL (0.0-3.6) Creatine Kinase MB Relative Index 2.1 % (0-4) Troponin I Quantitative < 0.017 ng/mL (0.000-0.055) Medications Current Medications Albuterol Sulfate (Ventolin Neb Soln) 2.5 mg PRN Q2HR PRN NEB SHORTNESS OF BREATH Last administered on 04/12/17 08:26; Start 04/11/17 at 11:00 Albuterol/ Ipratropium (Duoneb) 3 ml Q4HRS W/A NEB Last administered on 10:10; Start 04/11/17 at 14:00 Albuterol/ Ipratropium (Duoneb) 3 ml 1X ONCE NEB Last administered on 11:07; Start 04/11/17 at 11:00; Stop 04/11/17 at 11:01; Status DC Methylprednisolone Sodium Succinate (SOLU-Medrol 125MG VIAL) 125 mg 1X ONCE IV Last administered on 04/11/17 11:15; Start 04/11/17 at 11:15; Stop 04/11/17 at 11:16; Status DC Ondansetron HCl (Zofran) 4 mg PRN Q8HRS PRN IV NAUSEA/VOMITING; Start 04/11/17 at 12:15; Stop 04/12/17 at 12:14; Status DC Morphine Sulfate 2 mg PRN Q2HR PRN IV PAIN; Start 04/11/17 at 12:15; Stop 04/12 at 12:14; Status DC Doxycycline Hyclate (Vibra-Tab) 100 mg BID PO Last administered on 04/12/17 08 :05; Start 04/11/17 at 15:00 Insulin Aspart (NovoLOG) 0-7 UNITS TIDWMEALS SQ Last administered on 04/11/17 18:32; Start 04/12/17 at 08:00; Stop 04/12/17 at 09:55; Status DC Dextrose (Dextrose 50%-Water Syringe) 12.5 gm PRN Q15MIN PRN IV SEE COMMENTS; Start 04/11/17 at 17:45 Methylprednisolone Sodium Succinate (SOLU-Medrol 40MG VIAL) 40 mg Q8HRS IV Last administered on 04/12/17 10:00; Start 04/12/17 at 10:00; Stop 04/12/17 at 10:18; Status DC Aspirin (Children'S Aspirin) 81 mg DAILY PO Last administered on 04/12/17 12: 04; Start 04/12/17 at 10:00 Atorvastatin Calcium (Lipitor) 40 mg QHS PO ; Start 04/12/17 at 21:00 Metformin HCl (Glucophage Xr) 500 mg DAILY PO Last administered on 04/12/17 12 :03; Start 04/12/17 at 10:00 Metoprolol Succinate (Toprol Xl) 100 mg DAILY PO Last administered on 12:04; Start 04/12/17 at 10:00 Pantoprazole Sodium (Protonix) 40 mg DAILYAC PO Last administered on 04/12/17 12:03; Start 04/12/17 at 10:00 Amlodipine Besylate (Norvasc) 10 mg DAILY PO Last administered on 04/12/17 12: 04; Start 04/12/17 at 10:00 Benzonatate (Tessalon Perle) 100 mg [id number] PO ; Start 04/12/17 at 14:00 Insulin Aspart (NovoLOG) 0-9 UNITS TIDWMEALS SQ Last administered on 04/12/17 12:08; Start 04/12/17 at 12:00 Dextrose (Dextrose 50%-Water Syringe) 12.5 gm PRN Q15MIN PRN IV SEE COMMENTS; Start 04/12/17 at 10:00 Methylprednisolone Sodium Succinate (SOLU-Medrol 40MG VIAL) 60 mg Q8HRS IV ; Start 04/12/17 at 14:00 Methylprednisolone Sodium Succinate (SOLU-Medrol 40MG VIAL) 20 mg 1X ONCE IV Last administered on 04/12/17 10:25; Start 04/12/17 at 10:30; Stop 04/12/17 at 10:31; Status DC Active Scripts Active Pantoprazole Sodium 40 Mg Tablet.dr 40 Mg PO DAILYAC 15 Days Levaquin (Levofloxacin) 500 Mg Tablet 500 Mg PO DAILY06 5 Days Reported Tudorza Pressair (Aclidinium [place]) 400 Mcg Aer.pow.ba 400 Mcg INH Qvar 40MCG Inhaler (Beclomethasone Dipropionate) 8.7 Gm Aer.w.adap 40 Mcg INH Cheratussin Ac Syrup (Guaifenesin/Codeine Phosphate) 118 Ml Liquid 118 Ml PO Prednisone 5 Mg Tablet 5 Mg PO Metformin Hcl Er (Metformin Hcl) 500 Mg Tab.er.24h 500 Mg PO DAILY Ventolin Hfa Inhaler (Albuterol Sulfate) 18 Gm Hfa.aer.ad 2 Puff PO Q4HRS PRN Duoneb 0.5-3(2.5) Mg/3 Ml (Albuterol/Ipratropium) 3 Ml Ampul.neb 3 Ml NEB QID Amlodipine Besylate 10 Mg Tablet 10 Mg PO DAILY Metoprolol Succinate ( Xl ) (Metoprolol Succinate) 100 Mg Tab.er.24h 100 Mg PO DAILY Aspirin 81 Mg Tab.chew 1 Tab PO DAILY Atorvastatin Calcium 40 Mg Tablet 1 Tab PO DAILY Vitals/I & O Vital Sign - Last 24 Hours 04/11/17 04/11/17 04/11/17 04/11/17 14:35 14:44 15:09 16:07 Temp 97.5 97.5 97.5 97.5 Pulse 93 93 Resp 20 20 B/P (MAP) 128/84 (99) 128/84 (99) Pulse Ox 96 96 96 O2 Delivery Nasal Cannula Nasal Cannula Nasal Cannula Nasal Cannula O2 Flow Rate 2.0 2.0 2.0 2.0 04/11/17 04/11/17 04/11/17 04/11/17 19:29 19:56 20:00 23:06 Temp 97.6 98.0 97.6 98.0 Pulse 97 93 Resp 20 16 B/P (MAP) 128/80 (96) 141/84 (103) Pulse Ox 98 97 O2 Delivery Nasal Cannula Nasal Cannula Nasal Cannula Nasal Cannula O2 Flow Rate 2.0 2.0 2.0 2.0 04/12/17 04/12/17 04/12/17 04/12/17 03:07 03:32 03:34 06:32 Temp 97.8 97.8 Pulse 92 Resp 20 16 B/P (MAP) 138/91 (107) Pulse Ox 98 96 O2 Delivery Nasal Cannula Nasal Cannula Nasal Cannula Nasal Cannula O2 Flow Rate 2.0 2.0 2.0 2.0 04/12/17 04/12/17 04/12/17 04/12/17 06:55 08:00 08:28 10:11 Temp 97.7 97.7 Pulse 94 Resp 17 B/P (MAP) 133/84 (100) Pulse Ox 98 O2 Delivery Nasal Cannula Nasal Cannula Nasal Cannula Nasal Cannula O2 Flow Rate 2.0 2.0 2.0 2.0 04/12/17 04/12/17 04/12/17 04/12/17 10:25 10:30 12:04 12:04 Temp 97.5 97.5 Pulse 104 104 104 Resp 24 B/P (MAP) 140/89 (106) 140/89 140/89 Pulse Ox 97 O2 Delivery BiPAP/CPAP Nasal Cannula O2 Flow Rate 2.0 Intake and Output 04/11/17 04/11/17 04/12/17 15:00 23:00 07:00 Intake Total 1000 ml 1100 ml Balance 1000 ml 1100 ml JOVANNY THOMPSON MD Apr 12, 2017 13:53
[2017-04-12 14:25] VITALS: BP 132/82
[2017-04-12] MEDS: methylPREDNISolone SOD SUCC PF 40 MG/ML VIAL. IV SCH ×2 (14:33→21:26)
[2017-04-12] MEDS: BENZONATATE 100 MG CAPSULE. PO SCH ×2 (14:35→21:27)
[2017-04-12 18:40] LABS: CKMB MASS 2.4 ng/mL (0.0-3.6)
[2017-04-12 19:25] VITALS: BP 133/79
[2017-04-12] MEDS ORDERED: ATORVASTATIN CALCIUM 40 MG TABLET. PO SCH (21:00)
[2017-04-12 23:06] VITALS: BP 127/86
[2017-04-13] MEDS: IPRATRPIUM/ALBUTEROL 0.5/2.5MG 3 ML NEBU. NEB SCH ×4 (00:19→15:44)
[2017-04-13 01:10] LABS: CKMB MASS 2.4 ng/mL (0.0-3.6)
[2017-04-13 03:42] VITALS: BP 144/90
[2017-04-13] MEDS: methylPREDNISolone SOD SUCC PF 40 MG/ML VIAL. IV SCH ×2 (06:07→14:16)
[2017-04-13] MEDS: PANTOPRAZOLE 40 MG TABLET.DR. PO SCH (06:07)
[2017-04-13 06:55] VITALS: BP 129/80
[2017-04-13] MEDS: DOXYCYCLINE HYCLATE 100 MG TABLET PO SCH (08:28)
[2017-04-13] MEDS: METOPROLOL SUCC 24HR ER 100 MG TAB.ER.24H. PO SCH (08:28)
[2017-04-13] MEDS: ASPIRIN CHEWABLE 81 MG TABLET. PO SCH (08:29)
[2017-04-13] MEDS: amLODIPine BESYLATE 10 MG TABLET PO SCH (08:29)
[2017-04-13] MEDS: metFORMIN XR 500 MG TAB.ER.24H PO SCH (08:29)
[2017-04-13] MEDS: BENZONATATE 100 MG CAPSULE. PO SCH ×2 (08:29→14:10)
[2017-04-13] MEDS: INSULIN ASPART 300 UNITS/3 ML INSULN.PEN SQ SCH ×2 (08:33→12:14)
[2017-04-13] MEDS ORDERED: INSULIN DETEMIR 300 UNITS/3 ML INSULN.PEN. SQ ONE (09:45)
[2017-04-13 10:29] VITALS: BP 123/74
--- NOTE | 2017-04-13 10:34 | PDOC ---
PULMONARY PROGRESS NOTES Subjective feels better Vitals Vital Signs Date Time Temp Pulse Resp B/P (MAP) Pulse Ox O2 Delivery O2 Flow Rate FiO2 04/13/17 10:29 98.1 105 18 123/74 (90) 97 Nasal Cannula 2.0 98.1 General: Alert, No acute distress, Mild Distress Lungs: Wheezing (resolved) Cardiovascular: S1 Abdomen: Soft Neuro Exam: Alert Extremities: No Edema Skin: Warm Labs Laboratory Tests Test 04/11/17 11:00 04/11/17 17:15 04/11/17 20:46 04/12/17 03:30 White Blood Count 13.7 x10^3/uL (4.0-11.0) 14.6 x10^3/uL (4.0-11.0) Red Blood Count 4.43 x10^6/uL (4.30-5.70) 4.37 x10^6/uL (4.30-5.70) Hemoglobin 14.0 g/dL (13.0-17.5) 13.6 g/dL (13.0-17.5) Hematocrit 41.6 % (39.0-53.0) 41.7 % (39.0-53.0) Mean Corpuscular Volume 94 fL (79-100) 96 fL (79-100) Mean Corpuscular Hemoglobin 32 pg (25-35) 31 pg (25-35) Mean Corpuscular Hemoglobin Concent 34 g/dL (31-37) 33 g/dL (31-37) Red Cell Distribution Width 14.0 % (11.5-14.5) 14.2 % (11.5-14.5) Platelet Count 234 x10^3/uL (140-400) 218 x10^3/uL (140-400) Neutrophils (%) (Auto) 67 % (31-73) 93 % (31-73) Lymphocytes (%) (Auto) 19 % (24-48) 6 % (24-48) Monocytes (%) (Auto) 6 % (0-9) 2 % (0-9) Eosinophils (%) (Auto) 7 % (0-3) 0 % (0-3) Basophils (%) (Auto) 1 % (0-3) 0 % (0-3) Neutrophils # (Auto) 9.1 x10^3uL (1.8-7.7) 13.6 x10^3uL (1.8-7.7) Lymphocytes # (Auto) 2.7 x10^3/uL (1.0-4.8) 0.8 x10^3/uL (1.0-4.8) Monocytes # (Auto) 0.9 x10^3/uL (0.0-1.1) 0.2 x10^3/uL (0.0-1.1) Eosinophils # (Auto) 0.9 x10^3/uL (0.0-0.7) 0.0 x10^3/uL (0.0-0.7) Basophils # (Auto) 0.1 x10^3/uL (0.0-0.2) 0.0 x10^3/uL (0.0-0.2) Sodium Level 136 mmol/L (136-145) 135 mmol/L (136-145) Potassium Level 4.1 mmol/L (3.5-5.1) 4.4 mmol/L (3.5-5.1) Chloride Level 99 mmol/L (98-107) 99 mmol/L (98-107) Carbon Dioxide Level 26 mmol/L (21-32) 24 mmol/L (21-32) Anion Gap 11 (6-14) 12 (6-14) Blood Urea Nitrogen 11 mg/dL (8-26) 11 mg/dL (8-26) Creatinine 1.0 mg/dL (0.7-1.3) 0.9 mg/dL (0.7-1.3) Estimated GFR (Cockcroft-Gault) 91.6 103.5 Glucose Level 253 mg/dL (70-99) 184 mg/dL (70-99) Calcium Level 8.7 mg/dL (8.5-10.1) 9.2 mg/dL (8.5-10.1) Total Bilirubin 0.8 mg/dL (0.2-1.0) Direct Bilirubin 0.2 mg/dL (0.0-0.2) Aspartate Amino Transf (AST/SGOT) 26 U/L (15-37) Alanine Aminotransferase (ALT/SGPT) 39 U/L (16-63) Alkaline Phosphatase 72 U/L (46-116) Troponin I Quantitative < 0.017 ng/mL (0.000-0.055) JU-[id number]-Type Natriuretic Peptide 13 pg/mL (0-124) Total Protein 7.4 g/dL (6.4-8.2) Albumin 4.3 g/dL (3.4-5.0) Lipase 127 U/L (73-393) Glucose (Fingerstick) 265 mg/dL (70-99) 232 mg/dL (70-99) Segmented Neutrophils % 87 % (35-66) Band Neutrophils % 2 % (0-9) Lymphocytes % 9 % (24-48) Monocytes % 2 % (0-10) Platelet Estimate Adequate (ADEQUATE) Test 04/12/17 06:58 04/12/17 11:22 04/12/17 11:45 04/12/17 17:28 Glucose (Fingerstick) 185 mg/dL (70-99) 208 mg/dL (70-99) 238 mg/dL (70-99) Creatine Kinase 101 U/L (39-308) Creatine Kinase MB (Mass) 2.1 ng/mL (0.0-3.6) Creatine Kinase MB Relative Index 2.1 % (0-4) Troponin I Quantitative < 0.017 ng/mL (0.000-0.055) Test 04/12/17 17:45 04/12/17 20:53 04/13/17 00:20 04/13/17 06:54 Creatine Kinase 121 U/L (39-308) 115 U/L (39-308) Creatine Kinase MB (Mass) 2.4 ng/mL (0.0-3.6) 2.4 ng/mL (0.0-3.6) Creatine Kinase MB Relative Index 2.0 % (0-4) 2.1 % (0-4) Troponin I Quantitative < 0.017 ng/mL (0.000-0.055) < 0.017 ng/mL (0.000-0.055) Glucose (Fingerstick) 228 mg/dL (70-99) 271 mg/dL (70-99) Laboratory Tests Test 04/12/17 11:22 04/12/17 11:45 04/12/17 17:28 04/12/17 17:45 Glucose (Fingerstick) 208 mg/dL (70-99) 238 mg/dL (70-99) Creatine Kinase 101 U/L (39-308) 121 U/L (39-308) Creatine Kinase MB (Mass) 2.1 ng/mL (0.0-3.6) 2.4 ng/mL (0.0-3.6) Creatine Kinase MB Relative Index 2.1 % (0-4) 2.0 % (0-4) Troponin I Quantitative < 0.017 ng/mL (0.000-0.055) < 0.017 ng/mL (0.000-0.055) Test 04/12/17 20:53 04/13/17 00:20 04/13/17 06:54 Glucose (Fingerstick) 228 mg/dL (70-99) 271 mg/dL (70-99) Creatine Kinase 115 U/L (39-308) Creatine Kinase MB (Mass) 2.4 ng/mL (0.0-3.6) Creatine Kinase MB Relative Index 2.1 % (0-4) Troponin I Quantitative < 0.017 ng/mL (0.000-0.055) Medications Active Scripts Medications Dose Route/Sig Max Daily Dose Days Date Category Tudorza Pressair (Aclidinium [place]) 400 Mcg Aer.pow.ba 400 Mcg INH 04/11/17 Reported Qvar 40MCG Inhaler (Beclomethasone Dipropionate) 8.7 Gm Aer.w.adap 40 Mcg INH 04/11/17 Reported Cheratussin Ac Syrup (Guaifenesin/Codeine Phosphate) 118 Ml Liquid 118 Ml PO 04/11/17 Reported Prednisone 5 Mg Tablet 5 Mg PO 04/11/17 Reported Metformin Hcl Er (Metformin Hcl) 500 Mg Tab.er.24h 500 Mg PO DAILY 04/11/17 Reported Pantoprazole Sodium 40 Mg Tablet.dr 40 Mg PO DAILYAC 15 03/18/16 Rx Levaquin (Levofloxacin) 500 Mg Tablet 500 Mg PO DAILY06 5 03/18/16 Rx Ventolin Hfa Inhaler (Albuterol Sulfate) 18 Gm Hfa.aer.ad 2 Puff PO Q4HRS PRN 03/18/16 Reported Duoneb 0.5-3(2.5) Mg/3 Ml (Albuterol/Ipratropium) 3 Ml Ampul.neb 3 Ml NEB QID 03/18/16 Reported Amlodipine Besylate 10 Mg Tablet 10 Mg PO DAILY 03/18/16 Reported Metoprolol Succinate ( Xl ) (Metoprolol Succinate) 100 Mg Tab.er.24h 100 Mg PO DAILY 03/18/16 Reported Aspirin 81 Mg Tab.chew 1 Tab PO DAILY 03/18/16 Reported Atorvastatin Calcium 40 Mg Tablet 1 Tab PO DAILY 10/09/14 Reported Impression . 1. Acute hypoxic respiratory failure secondary to acute exacerbation of chronic obstructive pulmonary disease. wheezing improved today 2. Acute bronchitis. 3. No definite pneumonia seen on the chest x-ray. 4. Leukocytosis could be secondary to acute bronchitis versus stress induced. Plan . 1. Continue with present bronchodilators DuoNebs. 2. p.o. antibiotics that bronchitis maybe the trigger. 3. oxygen. 4. solumedrol 5. off BIPAP 6. Pt wants to go home today. i would have preferred tomorrow. 6 min walk today.possible dc home later this afternoon GHANSHYAM LOMBARDI MD Apr 13, 2017 10:34
[2017-04-13] MEDS ORDERED: DOXY100C2 PO (13:26)
--- NOTE | 2017-04-13 13:28 | PDOC3 ---
Discharge Summary Visit Information Date of Admission: Apr 11, 2017 Date of Discharge: Apr 13, 2017 Admitting Diagnosis Comment: 1. Acute hypoxic respiratory failure secondary to acute exacerbation of chronic obstructive pulmonary disease. 2. Acute bronchitis. 3. No definite pneumonia seen on the chest x-ray. 4. Leukocytosis could be secondary to acute bronchitis versus stress induced. 5. Ex smoker, quit many yrs ago Final Diagnosis Problems Medical Problems: (1) COPD with acute exacerbation Status: Acute (2) Respiratory failure, [id number] Status: Acute Brief Hospital Course Allergies Allergies Coded Allergies Type Severity Reaction Last Updated Verified Penicillins Allergy Intermediate rash 11/15/14 Yes Vital Signs Vital Signs Date Time Temp Pulse Resp B/P (MAP) Pulse Ox O2 Delivery O2 Flow Rate FiO2 04/13/17 10:59 Room Air 04/13/17 10:29 98.1 105 18 123/74 (90) 97 2.0 98.1 Lab Results Laboratory Tests Test 04/11/17 17:15 04/11/17 20:46 04/12/17 03:30 04/12/17 06:58 Glucose (Fingerstick) 265 mg/dL (70-99) 232 mg/dL (70-99) 185 mg/dL (70-99) White Blood Count 14.6 x10^3/uL (4.0-11.0) Red Blood Count 4.37 x10^6/uL (4.30-5.70) Hemoglobin 13.6 g/dL (13.0-17.5) Hematocrit 41.7 % (39.0-53.0) Mean Corpuscular Volume 96 fL (79-100) Mean Corpuscular Hemoglobin 31 pg (25-35) Mean Corpuscular Hemoglobin Concent 33 g/dL (31-37) Red Cell Distribution Width 14.2 % (11.5-14.5) Platelet Count 218 x10^3/uL (140-400) Neutrophils (%) (Auto) 93 % (31-73) Lymphocytes (%) (Auto) 6 % (24-48) Monocytes (%) (Auto) 2 % (0-9) Eosinophils (%) (Auto) 0 % (0-3) Basophils (%) (Auto) 0 % (0-3) Neutrophils # (Auto) 13.6 x10^3uL (1.8-7.7) Lymphocytes # (Auto) 0.8 x10^3/uL (1.0-4.8) Monocytes # (Auto) 0.2 x10^3/uL (0.0-1.1) Eosinophils # (Auto) 0.0 x10^3/uL (0.0-0.7) Basophils # (Auto) 0.0 x10^3/uL (0.0-0.2) Segmented Neutrophils % 87 % (35-66) Band Neutrophils % 2 % (0-9) Lymphocytes % 9 % (24-48) Monocytes % 2 % (0-10) Platelet Estimate Adequate (ADEQUATE) Sodium Level 135 mmol/L (136-145) Potassium Level 4.4 mmol/L (3.5-5.1) Chloride Level 99 mmol/L (98-107) Carbon Dioxide Level 24 mmol/L (21-32) Anion Gap 12 (6-14) Blood Urea Nitrogen 11 mg/dL (8-26) Creatinine 0.9 mg/dL (0.7-1.3) Estimated GFR (Cockcroft-Gault) 103.5 Glucose Level 184 mg/dL (70-99) Calcium Level 9.2 mg/dL (8.5-10.1) Test 04/12/17 11:22 04/12/17 11:45 04/12/17 17:28 04/12/17 17:45 Glucose (Fingerstick) 208 mg/dL (70-99) 238 mg/dL (70-99) Creatine Kinase 101 U/L (39-308) 121 U/L (39-308) Creatine Kinase MB (Mass) 2.1 ng/mL (0.0-3.6) 2.4 ng/mL (0.0-3.6) Creatine Kinase MB Relative Index 2.1 % (0-4) 2.0 % (0-4) Troponin I Quantitative < 0.017 ng/mL (0.000-0.055) < 0.017 ng/mL (0.000-0.055) Test 04/12/17 20:53 04/13/17 00:20 04/13/17 06:54 04/13/17 11:35 Glucose (Fingerstick) 228 mg/dL (70-99) 271 mg/dL (70-99) 303 mg/dL (70-99) Creatine Kinase 115 U/L (39-308) Creatine Kinase MB (Mass) 2.4 ng/mL (0.0-3.6) Creatine Kinase MB Relative Index 2.1 % (0-4) Troponin I Quantitative < 0.017 ng/mL (0.000-0.055) Laboratory Tests Test 04/12/17 17:28 04/12/17 17:45 04/12/17 20:53 04/13/17 00:20 Glucose (Fingerstick) 238 mg/dL (70-99) 228 mg/dL (70-99) Creatine Kinase 121 U/L (39-308) 115 U/L (39-308) Creatine Kinase MB (Mass) 2.4 ng/mL (0.0-3.6) 2.4 ng/mL (0.0-3.6) Creatine Kinase MB Relative Index 2.0 % (0-4) 2.1 % (0-4) Troponin I Quantitative < 0.017 ng/mL (0.000-0.055) < 0.017 ng/mL (0.000-0.055) Test 04/13/17 06:54 04/13/17 11:35 Glucose (Fingerstick) 271 mg/dL (70-99) 303 mg/dL (70-99) Brief Hospital Course Mr. Hathaway is a 62 old AA male admitted for acute bronchitis, copd,(neg CXR) , was quite remarkable in presentation needed NRB by EMS and bipap on day of admit,. Was wheezing badly, NOw better after very HIGH doses steroids,. BUt wants to go home, Pulmo would have preferred one more night but pt adamant to go home' RX for doxy and PO pred given. PAssed the 6 MW DispO; home Pt seen and exmained dc time 31 mins Discharge Information Condition at Discharge: Improved, Stable Follow Up: Weeks (pulmo or PCP 1 mo) Disposition/Orders: D/C to Home Scheduled Amlodipine Besylate (Amlodipine Besylate), 10 MG PO DAILY, (Reported) Aspirin (Aspirin), 1 TAB PO DAILY, (Reported) Atorvastatin Calcium (Atorvastatin Calcium), 1 TAB PO DAILY, (Reported) Ipratropium/Albuterol Sulfate (Duoneb 0.5-3(2.5) Mg/3 Ml), 3 ML NEB QID, ( Reported) Levofloxacin (Levaquin), 500 MG PO DAILY06 Metformin Hcl (Metformin Hcl Er), 500 MG PO DAILY, (Reported) Metoprolol Succinate (Metoprolol Succinate ( Xl )), 100 MG PO DAILY, (Reported) Pantoprazole Sodium (Pantoprazole Sodium), 40 MG PO DAILYAC Scheduled PRN Albuterol Sulfate (Ventolin Hfa Inhaler), 2 PUFF PO Q4HRS PRN for SHORTNESS OF BREATH, (Reported) Miscellaneous Medications Aclidinium Hardtner (Tudorza Pressair), 400 MCG INH, (Reported) Beclomethasone Dipropionate (Qvar 40MCG Inhaler), 40 MCG INH, (Reported) Guaifenesin/Codeine Phosphate (Cheratussin Ac Syrup), 118 ML PO, (Reported) Prednisone (Prednisone), 5 MG PO, (Reported) Discontinued Medications Fluticasone Propionate (Flovent 110MCG Hfa), 2 PUFF PO Q4HRS PRN for SHORTNESS OF BREATH, (Reported) JOAVNNY THMOPSON MD Apr 13, 2017 13:28
[2017-04-13 15:17] VITALS: BP 134/70
[2017-04-13] MEDS ORDERED: INSULIN DETEMIR 300 UNITS/3 ML INSULN.PEN. SQ SCH (21:00)
== END 2017-04-13 16:20 | disposition home or self-care (01) | DRG 189 ==
LOC: ER 10:57 → UNDOADMIN 11:05 → ED HOLD 11:05 → 4 NORTH 11:05 → 1 WEST ICU 11:05 → 6 SOUTH 14:19
PROVIDERS: ADMIT Internal Medicine; ATTEND Internal Medicine
DX: J96.21 Acute and chronic respiratory failure with hypoxia (principal); J44.0 Chronic obstructive pulmonary disease with (acute) lower respiratory infection; E11.51 Type 2 diabetes mellitus with diabetic peripheral angiopathy without gangrene; J44.1 Chronic obstructive pulmonary disease with (acute) exacerbation; J20.9 Acute bronchitis, unspecified; E78.5 Hyperlipidemia, unspecified; I10 Essential (primary) hypertension; Z82.49 Family history of ischemic heart disease and other diseases of the circulatory system; Z87.891 Personal history of nicotine dependence; Z88.0 Allergy status to penicillin
CPT/HCPCS: 36415; 71010; 80048; 80076; 82553; 82962; 83690; 83880; 84484; 85007; 85025; 93005; 94620; 94640; 94644; 94660; 94760; 96374; J1815; J2920; J2930; J7613; J7620; 99291-25

== ENCOUNTER 2017-06-16 17:37 | Inpatient (IN) | payer OTHER ==
[~2017-06-16] VITALS: Ht 177.8 cm; Wt 78.5 kg
[~2017-06-16 17:37] MED LIST changes: +ACLI400A2 INH; +BECL8.7A7 INH; +DOXY100C2 PO; +GUAI118L20 PO; +METF500T9 PO; +METO-247 PO; -METO100T11 PO; +PRED5TAB PO; +VENTOLIN HFA18 GM INH
[2017-06-16] MEDS ORDERED: IV NORMAL SALINE 1000ML BAG 1,000 ML IV SCH (17:50)
[2017-06-16] MEDS ORDERED: IPRATRPIUM/ALBUTEROL 0.5/2.5MG 3 ML NEBU. NEB ONE (18:00)
[2017-06-16] MEDS ORDERED: 0.9 % SODIUM CHLORIDE 10 ML DISP.SYRIN. IV ONE (18:00)
[2017-06-16] MEDS ORDERED: methylPREDNISolone SOD SUCC PF 125 MG/2 ML VIAL. IV ONE (18:00)
[2017-06-16 18:07] LABS: HCO3 ABG 21 mmol/L (21-28); PCO2 ABG 35 mmHg (35-46); PO2 ABG 127 mmHg (65-108); SAT O2 ABG 98 % (92-99)
--- NOTE | 2017-06-16 18:07 | PHYS DOC ---
Past Medical History Past Medical History: COPD, Diabetes-Type II, Hypertension, Vascular Disease, Other Additional Past Medical Histor: "blood clots" Past Surgical History: Other Additional Past Surgical Histo: L calf thrombectomy, RT FEM POP,CLIP PLACED IN COLON Additional Information: quit smoking 5 years ago Alcohol Use: Occasionally Drug Use: None Adult General Chief Complaint Chief Complaint: DYSPNEA/RESPIRATOY DISTRESS HPI HPI Patient is a pleasant 62-year-old male with a known history of COPD peripheral vascular disease who normally takes atenolol dose of prednisone when necessary when he is having COPD his exacerbations as well as his nebulizer treatments. he has noted increased work of breathing increased fatigue over the last 2 days with a nonproductive cough congestion and runny nose. Patient denies any fevers , chills, night sweats, weight loss has had difficulty sleeping at night secondary to the coughing. Patient denies any sick contacts or antibiotic use. Patient denies any abdominal pain but did have some abdominal distention with increased work of breathing. Differential diagnosis: Acute myocardial ischemia, heart failure, cardiac tamponade, bronchospasm, pulmonary embolism, pneumothorax, pulmonary infection i.e. bronchitis or pneumonia, upper airway obstruction, anaphylaxis, aspiration , psychogenic, pulmonary contusion, toxidrome, pneumomediastinum, noncardiogenic pulmonary edema or ARDS, COPD, tuberculosis, cystic fibrosis, asthma, high altitude pulmonary edema, valvular dysfunction, cardiac dysrhythmia , stroke, neuromuscular diseases like myasthenia gravis gravis, ALS, Guillain- Christopher syndrome, metabolic acidosis to include diabetic ketoacidosis, sepsis, and obstructive disorders like massive obesity Review of Systems Review of Systems Constitutional: Denies fever or chills [] Eyes: Denies change in visual acuity, redness, or eye pain [] HENT: he does have some nasal congestion Respiratory: Does complain of cough and shortness of breath especially on exertion. Cardiovascular: No additional information not addressed in HPI [] GI: Denies abdominal pain, nausea, vomiting, bloody stools or diarrhea [] : Denies dysuria or hematuria [] Musculoskeletal: Denies back pain or joint pain [] Integument: Denies rash or skin lesions [] Neurologic: Denies headache, focal weakness or sensory changes [] Endocrine: Denies polyuria or polydipsia [] Current Medications Current Medications Current Medications Medications (Trade) Dose Ordered Sig/Hailee Start Time Stop Time Status Last Admin Dose Admin Albuterol/ Ipratropium (Duoneb) 3 ml 1X ONCE 06/16/17 18:00 06/16/17 18:01 DC 06/16/17 18:14 3 ML Methylprednisolone Sodium Succinate (SOLU-Medrol 125MG VIAL) 125 mg 1X ONCE 06/16/17 18:00 06/16/17 18:01 DC 06/16/17 18:01 125 MG Sodium Chloride 1,000 ml @ 1,000 mls/hr Q1H 06/16/17 17:50 06/16/17 18:49 06/16/17 17:57 1,000 MLS/HR Sodium Chloride (Normal Saline Flush) 10 ml 1X ONCE 06/16/17 18:00 06/16/17 18:01 DC 06/16/17 17:57 10 ML Allergies Allergies Allergies Coded Allergies Type Severity Reaction Last Updated Verified Penicillins Allergy Intermediate rash 11/15/14 Yes Physical Exam Physical Exam Signs on arrival show the patient to be very tachypnea but not hypoxic on a BiPAP machine upon arrival. Constitutional: Well developed, well nourished, patient having some obvious distress no obvious retractions HENT: Normocephalic, atraumatic, bilateral external ears normal, dry mucous membranes, no oral exudates, nose normal. [] Eyes: PERRLA, EOMI, conjunctiva normal, no discharge. [] Neck: Normal range of motion, no tenderness, supple, no stridor. [] Cardiovascular:Heart rate regular rhythm, no murmur [] Lungs & Thorax: he has significantly decreased breath sounds in all lung miles with prolonged exhalation and wheezes no significant retractions patient speaking in 3-5 word sentences. Abdomen: Bowel sounds normal, soft, no tenderness, no masses, no pulsatile masses. [] Skin: Warm, dry, no erythema, no rash. [] Extremities: No tenderness, no cyanosis, no clubbing, ROM intact, no edema. [] Neurologic: Alert and oriented X 3, normal motor function, normal sensory function, no focal deficits noted. [] Psychologic: Affect normal, judgement normal, mood normal. [] Current Patient Data Vital Signs Vital Signs Date Time Temp Pulse Resp B/P (MAP) Pulse Ox O2 Delivery O2 Flow Rate FiO2 06/16/17 18:06 119 22 117/95 (102) 99 BiPAP/CPAP 06/16/17 17:42 98.0 98.0 Lab Values Laboratory Tests Test 06/16/17 17:50 06/16/17 17:55 White Blood Count 12.3 x10^3/uL (4.0-11.0) H Red Blood Count 4.47 x10^6/uL (4.30-5.70) Hemoglobin 14.6 g/dL (13.0-17.5) Hematocrit 42.6 % (39.0-53.0) Mean Corpuscular Volume 95 fL (79-100) Mean Corpuscular Hemoglobin 33 pg (25-35) Mean Corpuscular Hemoglobin Concent 34 g/dL (31-37) Red Cell Distribution Width 14.7 % (11.5-14.5) H Platelet Count 298 x10^3/uL (140-400) Neutrophils (%) (Auto) 80 % (31-73) H Lymphocytes (%) (Auto) 14 % (24-48) L Monocytes (%) (Auto) 5 % (0-9) Eosinophils (%) (Auto) 1 % (0-3) Basophils (%) (Auto) 1 % (0-3) Neutrophils # (Auto) 9.8 x10^3uL (1.8-7.7) H Lymphocytes # (Auto) 1.7 x10^3/uL (1.0-4.8) Monocytes # (Auto) 0.6 x10^3/uL (0.0-1.1) Eosinophils # (Auto) 0.1 x10^3/uL (0.0-0.7) Basophils # (Auto) 0.1 x10^3/uL (0.0-0.2) Sodium Level 134 mmol/L (136-145) L Potassium Level 4.1 mmol/L (3.5-5.1) Chloride Level 95 mmol/L (98-107) L Carbon Dioxide Level 24 mmol/L (21-32) Anion Gap 15 (6-14) H Blood Urea Nitrogen 10 mg/dL (8-26) Creatinine 1.2 mg/dL (0.7-1.3) Estimated GFR (Cockcroft-Gault) 74.2 BUN/Creatinine Ratio 8 (6-20) Glucose Level 257 mg/dL (70-99) H Calcium Level 9.9 mg/dL (8.5-10.1) Total Bilirubin 0.7 mg/dL (0.2-1.0) Aspartate Amino Transferase (AST) 31 U/L (15-37) Alanine Aminotransferase (ALT) 41 U/L (16-63) Alkaline Phosphatase 75 U/L (46-116) Troponin I Quantitative < 0.017 ng/mL (0.000-0.055) Total Protein 8.7 g/dL (6.4-8.2) H Albumin 4.3 g/dL (3.4-5.0) Albumin/Globulin Ratio 1.0 (1.0-1.7) O2 Saturation 98 % (92-99) Arterial Blood pH 7.40 (7.35-7.45) Arterial Blood pCO2 at Patient Temp 35 mmHg (35-46) Arterial Blood pO2 at Patient Temp 127 mmHg (65-108) H Arterial Blood HCO3 21 mmol/L (21-28) Arterial Blood Base Excess -3 mmol/L (-3-3) FiO2 40 Laboratory Tests 06/16/17 17:50 Laboratory Tests 06/16/17 17:50 EKG EKG [] Radiology/Procedures Radiology/Procedures [] Course & Med Decision Making Course & Med Decision Making Pertinent Labs and Imaging studies reviewed. (See chart for details) when EMS picked this patient up they gave him 3 in-line nebs upon arrival as well as some oxygen via nonrebreather mask although his saturation was 61% on arrival it did improve. Eventually patient needed a BiPAP machine which they placed him on and brought him into the emergency department.Differential diagnosis: Acute myocardial ischemia, heart failure, cardiac tamponade, bronchospasm, pulmonary embolism, pneumothorax, pulmonary infection i.e. bronchitis or pneumonia, upper airway obstruction, anaphylaxis, aspiration, psychogenic, pulmonary contusion, toxidrome, pneumomediastinum, noncardiogenic pulmonary edema or ARDS, COPD, tuberculosis, cystic fibrosis, asthma, high altitude pulmonary edema, valvular dysfunction, cardiac dysrhythmia, stroke, neuromuscular diseases like myasthenia gravis gravis, ALS, Guillain-Christopher syndrome, metabolic acidosis to include diabetic ketoacidosis, sepsis, and obstructive disorders like massive obesity was considered and patient was immediately treated for likely COPD exacerbation. He does have some risk factors in that he has a history of steroid use, prior ER evaluation secondary to acute respiratory distress and COPD exacerbation. My plan is to treat this patient with continuous DuoNeb as well as slight Medrol continue on the BiPAP machine and to admit for COPD exacerbation we will also ensure the patient is not in congestive heart failure or suffering from a infiltrate that required IV antibiotics. G completed at 6 5:47 PM 06/14/2017 demonstrates heart rate of 126 but there is a pediatric QRS, sinus tachycardia there is a large P wave in lead V2 consistent with left atrial enlargement. Intervals 154 to normal QRS width as he was normal QTC was 429 which is also normal. EKG read by me [] Patient tells me that their symptoms given during CC are improved. Patient's symptoms have improved now 6:30 PM patient's EKG is unremarkable ABG completed approximately 8 minutes after 6 PM demonstrates a pH of 7.4 PCO2 at 34 PO2 1.6 bicarbonate 21 basis is -2.9 she is on 40% FiO2 resting more comfortably feeling markedly better. Patient is gotten 5 DuoNeb's here in the emergency department Solu-Medrol and positive ventilation with marked improvement of hypoxia and dyspnea. Chest x-ray AP film 6:36 PM read by me demonstrates hyperinflation thorough throughout the lung miles without clear pulmonary infiltrate or pleural effusion. Patient does have cardiomegaly there is no pneumothorax or pneumomediastinum bony miles of the ribs scapular humerus is interviewed in clavicles are normal. Brake Machine Operator note: Internal medicine Brake Machine Operator called at of the service service: Approximate 6:40 PM Consult called back at 6:41 PM Discussed the case I presented and they agreed with admission. Time of acceptance 6:41 PM Is improved dramatically with duo nebs Solu-Medrol and positive pressure ventilation I was admitted to the hospital to [facility] telemetry with close monitoring while on BiPAP still until it converted to nasal cannula as and make sure he can tolerate by mouth food and fluids patient will be given a dose of IV antibiotics to ensure that there is no infectious etiology returning to his symptoms. I spent approximately 45-50 minutes working and engaged directly in the patient care providing critical care evaluation this includes but not limited to time spent engaged in work directly related to the individual patients care. I spent time at the bedside, reviewing test results, discussing the case with staff, documenting the medical record and time spent with EMS discussing specific treatment issues when the patient presented and during his evaluation. Dragon Disclaimer Dragon Disclaimer This electronic medical record was generated, in whole or in part, using a voice recognition dictation system. Departure Departure Impression: Primary Impression: COPD with acute exacerbation Disposition: ADMITTED INPATIENT Admitting Physician: Danni Mckeon Condition: GUARDED Referrals: DHAVAL BILLINGS MD (PCP) SAMANTHA GARCIA MD Jun 16, 2017 18:07
[2017-06-16 18:09] LABS: FIO2 ABG 40
[2017-06-16 18:12] LABS: BASO # 0.1 x10^3/uL (0.0-0.2); BASO % 1 % (0-3); EOS % 1 % (0-3); HEMATOCRIT 42.6 % (39.0-53.0); HEMOGLOBIN 14.6 g/dL (13.0-17.5); LYMPH # 1.7 x10^3/uL (1.0-4.8); LYMPH % 14 % (24-48); MEAN CORPUSCULAR HEMOGLOBIN 33 pg (25-35); MEAN CORPUSCULAR HGB CONC 34 g/dL (31-37); MEAN CORPUSCULAR VOLUME 95 fL (79-100); MONO % 5 % (0-9); NEUT % 80 % (31-73); PLATELET COUNT 298 x10^3/uL (140-400); RED BLOOD COUNT 4.47 x10^6/uL (4.30-5.70); RED CELL DISTRIBUTION WIDTH 14.7 % (11.5-14.5); WHITE BLOOD COUNT 12.3 x10^3/uL (4.0-11.0)
[2017-06-16 18:26] LABS: CALCIUM 9.9 mg/dL (8.5-10.1); CREATININE 1.2 mg/dL (0.7-1.3); GFR 74.2; POTASSIUM 4.1 mmol/L (3.5-5.1)
--- NOTE | 2017-06-16 18:30 | EKG ---
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
[2017-06-16 18:32] LABS: ALBUMIN 4.3 g/dL (3.4-5.0); TOTAL BILIRUBIN 0.7 mg/dL (0.2-1.0); TOTAL PROTEIN 8.7 g/dL (6.4-8.2)
[2017-06-16 18:43] LABS: CKMB MASS 1.5 ng/mL (0.0-3.6)
[2017-06-16] MEDS ORDERED: ONDANSETRON PF 4 MG/2 ML VIAL. IV PRN (18:45)
[2017-06-16] MEDS ORDERED: IV NORMAL SALINE 1000ML BAG 1,000 ML IV ONE (18:45)
[2017-06-16] MEDS ORDERED: fentaNYL PF VIAL 100 MCG/2 ML VIAL IV PRN (18:45)
[2017-06-16] MEDS ORDERED: CIPROFLOXACIN 400MG PREMIX 200 ML IV ONE (19:00)
[2017-06-16 19:27] LABS: OBC FLU VALID
[2017-06-16] MEDS: IPRATRPIUM/ALBUTEROL 0.5/2.5MG 3 ML NEBU. NEB SCH (19:56)
[2017-06-16 20:19] VITALS: BP 157/100
[2017-06-16] MEDS: IV NORMAL SALINE 1000ML BAG 1,000 ML IV SCH (20:20)
[2017-06-16 21:16] LABS: BILIRUBIN,URINE NEGATIVE (NEG); GLUCOSE,URINE 250 mg/dL (NEG); NITRITE,URINE NEGATIVE (NEG); PH,URINE 5.5; PROTEIN,URINE NEGATIVE (NEG-TRACE); UROBILINOGEN,URINE 0.2 mg/dL (0.2 mg/dL)
[2017-06-16 21:27] LABS: BACTERIA,URINE 0 /HPF (0-FEW); RBC,URINE 0 /HPF (0-2); SQUAMOUS EPITHELIAL CELL,UR OCC /LPF; WBC,URINE 0 /HPF (0-4)
[2017-06-16] MEDS ORDERED: INFLUENZA VAX SCREEN BY RX. MC PRN (22:30)
[2017-06-16 23:00] VITALS: BP 156/82
[2017-06-17 03:00] VITALS: BP 146/95
[2017-06-17] MEDS ORDERED: IPRATRPIUM/ALBUTEROL 0.5/2.5MG 3 ML NEBU. NEB ONE (03:30)
[2017-06-17] MEDS: IV NORMAL SALINE 1000ML BAG 1,000 ML IV SCH (03:46)
[2017-06-17 07:00] VITALS: BP 132/97
--- NOTE | 2017-06-17 07:37 | RAD ---
Indication chest pain. A single view of the chest was obtained. Comparison is made to an examination just over 2 months earlier. The heart, pulmonary vessels and mediastinum appear normal. The lungs are clear of acute infiltrates. There is no pleural fluid. There is no pneumothorax. Bony structures appear grossly intact. IMPRESSION: No acute finding. No significant change
[2017-06-17] MEDS: IPRATRPIUM/ALBUTEROL 0.5/2.5MG 3 ML NEBU. NEB SCH ×5 (07:57→22:00)
[2017-06-17] MEDS ORDERED: FLU VACC QS2017-18 (36MOS+)/PF 0.5 ML SYRINGE. VAX IM ONE (09:00)
--- NOTE | 2017-06-17 10:06 | PDOC1 ---
History and Physical Date of Admission Date of Admission DATE: 06/17/17 TIME: 10:06 Source Source: Chart review History of Present Illness History of Present Illness Mr. Hathaway is a pleasant 62-year-old male , COPD peripheral vascular disease, he has been dyspneic, worsening for a few days, coughing and could not catch his breath. New sputum production adn weakness of 24 hours. chest pain reported in ER, better now, no pain. has not seen his PULM doctor for some time, has taken prednisone as outpatient before, but nebs treatments were not helping at home no travel no sick contacts insomnia due to dyspnea and cough Past Medical History Cardiovascular: HTN, Other (vascular dz) Pulmonary: Asthma, COPD GI: No pertinent hx Heme/Onc: No pertinent hx Hepatobiliary: No pertinent hx Psych: No pertinent hx Musculoskeletal: low back pain Family History Family History: Chronic Bronchitis, Diabetes Social History Smoke: Quit (5 years ago) ALCOHOL: none Drugs: None Current Problem List Problem List Problems Medical Problems: (1) COPD with acute exacerbation Status: Acute Problems: Current Medications Current Medications Current Medications Sodium Chloride (Normal Saline Flush) 10 ml 1X ONCE IV Last administered on 17:57; Start 06/16/17 at 18:00; Stop 06/16/17 at 18:01; Status DC Sodium Chloride 1,000 ml @ 1,000 mls/hr Q1H IV Last administered on 17:57; Start 06/16/17 at 17:50; Stop 06/16/17 at 18:49; Status DC Albuterol/ Ipratropium (Duoneb) 3 ml 1X ONCE NEB Last administered on 18:14; Start 06/16/17 at 18:00; Stop 06/16/17 at 18:01; Status DC Methylprednisolone Sodium Succinate (SOLU-Medrol 125MG VIAL) 125 mg 1X ONCE IV Last administered on 06/16/17 18:01; Start 06/16/17 at 18:00; Stop at 18:01; Status DC Ondansetron HCl (Zofran) 4 mg PRN Q8HRS PRN IV NAUSEA/VOMITING; Start at 18:45; Stop 06/17/17 at 18:44 Fentanyl Citrate (Fentanyl 2ml Vial) 50 mcg PRN Q1HR PRN IV PAIN; Start at 18:45; Stop 06/17/17 at 18:44 Sodium Chloride 1,000 ml 1845 ONCE IV ; Start 06/16/17 at 18:45; Stop at 18:46; Status UNV Albuterol/ Ipratropium (Duoneb) 3 ml RTQID NEB Last administered on 06/17/17 07:57; Start 06/16/17 at 20:00; Stop 06/17/17 at 19:59 Ciprofloxacin/ Dextrose 200 ml @ 200 mls/hr Q12HR IV ; Start 06/17/17 at 09:00 Sodium Chloride 1,000 ml @ 125 mls/hr Q8H IV Last administered on 06/17/17 03:46; Start 06/16/17 at 18:45 Ciprofloxacin/ Dextrose 200 ml @ 200 mls/hr 1X ONCE IV Last administered on 06/16/17 18:54; Start 06/16/17 at 19:00; Stop 06/16/17 at 19:59; Status DC Lactobacillus Rhamnosus (Culturelle) 1 cap BID PO ; Start 06/17/17 at 09:00 Influenza Virus Vaccine Quadrival (Fluarix Quad 3539-3658 Syringe) 0.5 ml ONCE ONCE VAX IM ; Start 06/17/17 at 09:00; Stop 06/17/17 at 09:02; Status DC Info (Do NOT chart on this placeholder) 1 each PRN 1X PRN MC SEE COMMENTS; Start 06/16/17 at 22:30; Status Cancel Albuterol/ Ipratropium (Duoneb) 3 ml 1X ONCE NEB Last administered on 03:29; Start 06/17/17 at 03:30; Stop 06/17/17 at 03:31; Status DC Active Scripts Active Reported Tudorza Pressair (Aclidinium [place]) 400 Mcg Aer.pow.ba 400 Mcg INH Qvar 40MCG Inhaler (Beclomethasone Dipropionate) 8.7 Gm Aer.w.adap 40 Mcg INH Cheratussin Ac Syrup (Guaifenesin/Codeine Phosphate) 118 Ml Liquid 118 Ml PO Ventolin Hfa Inhaler (Albuterol Sulfate) 18 Gm Hfa.aer.ad 2 Puff PO Q4HRS PRN Duoneb 0.5-3(2.5) Mg/3 Ml (Albuterol/Ipratropium) 3 Ml Ampul.neb 3 Ml NEB QID Amlodipine Besylate 10 Mg Tablet 10 Mg PO DAILY Metoprolol Succinate ( Xl ) (Metoprolol Succinate) 100 Mg Tab.er.24h 100 Mg PO DAILY Aspirin 81 Mg Tab.chew 1 Tab PO DAILY Atorvastatin Calcium 40 Mg Tablet 1 Tab PO DAILY Allergies Allergies: Coded Allergies: Penicillins (Verified Allergy, Intermediate, rash, 11/15/14) ROS General: YES: Fatigue, Malaise, Other PSYCHOLOGICAL ROS: YES: Sleep disturbances, No: Anxiety, Behavioral Disorder, Concentration difficultie, Decreased libido , Depression, Disorientation, Hallucinations, Hostility, Irritablity, Memory difficulties, Mood Swings, Obsessive thoughts, Other Eyes: No Blurry vision, No Decreased vision, No Double vision, No Dry eyes, No Excessive tearing, No Eye Pain, No Itchy Eyes, No Loss of vision, No Photophobia , No Scotomata, No Uses contacts, No Uses glasses, No Other HEENT: YES: Heacaches, No: Visual Changes, Hearing change, Nasal congestion, Nasal discharge, Oral lesions, Sinus pain, Sore Throat, Epistaxis, Sneezing, Snoring, Tinnitus, Vertigo, Vocal changes, Other Respiratory: YES: Cough, Pleuritic Pain, Shortness of breath, SOB with excertion, Sputum Changes, No: Hemoptysis, Orthopnea, Stridor, Tachypnea, Wheezing, Other Cardiovascular: No Chest Pain, No Palpitations, No Orthopnea, No Paroxysmal Noc. Dyspnea, No Edema, No Lt Headedness, No Other Gastrointestinal: No Nausea, No Vomiting, No Abdominal Pain, No Diarrhea, No Constipation, No Melena, No Hematochezia, No Other Genitourinary: No Dysuria, No Frequency, No Incontinence, No Hematuria, No Retention, No Discharge, No Urgency, No Pain, No Flank Pain, No Other, No , No , No , No , No , No , No Musculoskeletal: No Gait Disturbance, No Joint Pain, No Joint Stiffness, No Joint Swelling, No Muscle Pain, No Muscular Weakness, No Pain In:, No Swelling In:, No Other Neurological: No Behavorial Changes, No Bowel/Bladder ControlChng, No Confusion , No Dizziness, No Gait Disturbance, No Headaches, No Impaired Coord/balance, No Memory Loss, No Numbness/Tingling, No Seizures, No Speech Problems, No Tremors, No Visual Changes, No Weakness, No Other Skin: Yes Dry Skin, No Eczema, No Hair Changes, No Lumps, No Mole Changes, No Mottling, No Nail Changes, No Pruritus, No Rash, No Skin Lesion Changes, No Other, No Acne Physical Exam General: Alert, Oriented X3, Cooperative, mild distress HEENT: EOMI, Mucous membr. moist/pink Lungs: Other (rales, small vol) Heart: no gallops, no murmurs Abdomen: Normal bowel sounds, Soft Extremities: No cyanosis, No edema Skin: No rashes Psych/Mental Status: Mood NL Vitals Vitals Vital Signs Date Time Temp Pulse Resp B/P (MAP) Pulse Ox O2 Delivery O2 Flow Rate FiO2 06/17/17 07:59 93 Nasal Cannula 3.0 06/17/17 07:00 97.7 100 18 132/97 (109) 97.7 Labs Labs Laboratory Tests Test 06/16/17 17:50 06/16/17 17:55 06/16/17 18:47 06/16/17 20:36 White Blood Count 12.3 x10^3/uL (4.0-11.0) Red Blood Count 4.47 x10^6/uL (4.30-5.70) Hemoglobin 14.6 g/dL (13.0-17.5) Hematocrit 42.6 % (39.0-53.0) Mean Corpuscular Volume 95 fL (79-100) Mean Corpuscular Hemoglobin 33 pg (25-35) Mean Corpuscular Hemoglobin Concent 34 g/dL (31-37) Red Cell Distribution Width 14.7 % (11.5-14.5) Platelet Count 298 x10^3/uL (140-400) Neutrophils (%) (Auto) 80 % (31-73) Lymphocytes (%) (Auto) 14 % (24-48) Monocytes (%) (Auto) 5 % (0-9) Eosinophils (%) (Auto) 1 % (0-3) Basophils (%) (Auto) 1 % (0-3) Neutrophils # (Auto) 9.8 x10^3uL (1.8-7.7) Lymphocytes # (Auto) 1.7 x10^3/uL (1.0-4.8) Monocytes # (Auto) 0.6 x10^3/uL (0.0-1.1) Eosinophils # (Auto) 0.1 x10^3/uL (0.0-0.7) Basophils # (Auto) 0.1 x10^3/uL (0.0-0.2) Sodium Level 134 mmol/L (136-145) Potassium Level 4.1 mmol/L (3.5-5.1) Chloride Level 95 mmol/L (98-107) Carbon Dioxide Level 24 mmol/L (21-32) Anion Gap 15 (6-14) Blood Urea Nitrogen 10 mg/dL (8-26) Creatinine 1.2 mg/dL (0.7-1.3) Estimated GFR (Cockcroft-Gault) 74.2 BUN/Creatinine Ratio 8 (6-20) Glucose Level 257 mg/dL (70-99) Calcium Level 9.9 mg/dL (8.5-10.1) Total Bilirubin 0.7 mg/dL (0.2-1.0) Aspartate Amino Transf (AST/SGOT) 31 U/L (15-37) Alanine Aminotransferase (ALT/SGPT) 41 U/L (16-63) Alkaline Phosphatase 75 U/L (46-116) Creatine Kinase 151 U/L (39-308) Creatine Kinase MB (Mass) 1.5 ng/mL (0.0-3.6) Creatine Kinase MB Relative Index 1.0 % (0-4) Troponin I Quantitative < 0.017 ng/mL (0.000-0.055) BG-Zgn-[id number]-Type Natriuretic Peptide 41 pg/mL (0-124) Total Protein 8.7 g/dL (6.4-8.2) Albumin 4.3 g/dL (3.4-5.0) Albumin/Globulin Ratio 1.0 (1.0-1.7) O2 Saturation 98 % (92-99) Arterial Blood pH 7.40 (7.35-7.45) Arterial Blood pCO2 at Patient Temp 35 mmHg (35-46) Arterial Blood pO2 at Patient Temp 127 mmHg (65-108) Arterial Blood HCO3 21 mmol/L (21-28) Arterial Blood Base Excess -3 mmol/L (-3-3) FiO2 40 Influenza Type A Antigen Negative (NEGATIVE) Influenza Type B Antigen Negative (NEGATIVE) Glucose (Fingerstick) 251 mg/dL (70-99) Test 06/16/17 21:06 06/17/17 00:45 06/17/17 05:00 06/17/17 07:06 Urine Collection Type Unknown Urine Color Yellow Urine Clarity Clear Urine pH 5.5 Urine Specific [place] <=1.005 Urine Protein Negative mg/dL (NEG-TRACE) Urine Glucose (UA) 250 mg/dL (NEG) Urine Ketones (Stick) Negative mg/dL (NEG) Urine Blood Negative (NEG) Urine Nitrite Negative (NEG) Urine Bilirubin Negative (NEG) Urine Urobilinogen Dipstick 0.2 mg/dL (0.2 mg/dL) Urine Leukocyte Esterase Negative (NEG) Urine RBC 0 /HPF (0-2) Urine WBC 0 /HPF (0-4) Urine Squamous Epithelial Cells Occ /LPF Urine Bacteria 0 /HPF (0-FEW) Troponin I Quantitative < 0.017 ng/mL (0.000-0.055) < 0.017 ng/mL (0.000-0.055) Glucose (Fingerstick) 227 mg/dL (70-99) Laboratory Tests Test 06/16/17 17:50 06/16/17 17:55 06/16/17 18:47 06/16/17 20:36 White Blood Count 12.3 x10^3/uL (4.0-11.0) Red Blood Count 4.47 x10^6/uL (4.30-5.70) Hemoglobin 14.6 g/dL (13.0-17.5) Hematocrit 42.6 % (39.0-53.0) Mean Corpuscular Volume 95 fL (79-100) Mean Corpuscular Hemoglobin 33 pg (25-35) Mean Corpuscular Hemoglobin Concent 34 g/dL (31-37) Red Cell Distribution Width 14.7 % (11.5-14.5) Platelet Count 298 x10^3/uL (140-400) Neutrophils (%) (Auto) 80 % (31-73) Lymphocytes (%) (Auto) 14 % (24-48) Monocytes (%) (Auto) 5 % (0-9) Eosinophils (%) (Auto) 1 % (0-3) Basophils (%) (Auto) 1 % (0-3) Neutrophils # (Auto) 9.8 x10^3uL (1.8-7.7) Lymphocytes # (Auto) 1.7 x10^3/uL (1.0-4.8) Monocytes # (Auto) 0.6 x10^3/uL (0.0-1.1) Eosinophils # (Auto) 0.1 x10^3/uL (0.0-0.7) Basophils # (Auto) 0.1 x10^3/uL (0.0-0.2) Sodium Level 134 mmol/L (136-145) Potassium Level 4.1 mmol/L (3.5-5.1) Chloride Level 95 mmol/L (98-107) Carbon Dioxide Level 24 mmol/L (21-32) Anion Gap 15 (6-14) Blood Urea Nitrogen 10 mg/dL (8-26) Creatinine 1.2 mg/dL (0.7-1.3) Estimated GFR (Cockcroft-Gault) 74.2 BUN/Creatinine Ratio 8 (6-20) Glucose Level 257 mg/dL (70-99) Calcium Level 9.9 mg/dL (8.5-10.1) Total Bilirubin 0.7 mg/dL (0.2-1.0) Aspartate Amino Transf (AST/SGOT) 31 U/L (15-37) Alanine Aminotransferase (ALT/SGPT) 41 U/L (16-63) Alkaline Phosphatase 75 U/L (46-116) Creatine Kinase 151 U/L (39-308) Creatine Kinase MB (Mass) 1.5 ng/mL (0.0-3.6) Creatine Kinase MB Relative Index 1.0 % (0-4) Troponin I Quantitative < 0.017 ng/mL (0.000-0.055) KH-Haa-Z-Type Natriuretic Peptide 41 pg/mL (0-124) Total Protein 8.7 g/dL (6.4-8.2) Albumin 4.3 g/dL (3.4-5.0) Albumin/Globulin Ratio 1.0 (1.0-1.7) O2 Saturation 98 % (92-99) Arterial Blood pH 7.40 (7.35-7.45) Arterial Blood pCO2 at Patient Temp 35 mmHg (35-46) Arterial Blood pO2 at Patient Temp 127 mmHg (65-108) Arterial Blood HCO3 21 mmol/L (21-28) Arterial Blood Base Excess -3 mmol/L (-3-3) FiO2 40 Influenza Type A Antigen Negative (NEGATIVE) Influenza Type B Antigen Negative (NEGATIVE) Glucose (Fingerstick) 251 mg/dL (70-99) Test 06/16/17 21:06 06/17/17 00:45 06/17/17 05:00 06/17/17 07:06 Urine Collection Type Unknown Urine Color Yellow Urine Clarity Clear Urine pH 5.5 Urine Specific [place] <=1.005 Urine Protein Negative mg/dL (NEG-TRACE) Urine Glucose (UA) 250 mg/dL (NEG) Urine Ketones (Stick) Negative mg/dL (NEG) Urine Blood Negative (NEG) Urine Nitrite Negative (NEG) Urine Bilirubin Negative (NEG) Urine Urobilinogen Dipstick 0.2 mg/dL (0.2 mg/dL) Urine Leukocyte Esterase Negative (NEG) Urine RBC 0 /HPF (0-2) Urine WBC 0 /HPF (0-4) Urine Squamous Epithelial Cells Occ /LPF Urine Bacteria 0 /HPF (0-FEW) Troponin I Quantitative < 0.017 ng/mL (0.000-0.055) < 0.017 ng/mL (0.000-0.055) Glucose (Fingerstick) 227 mg/dL (70-99) VTE Prophylaxis Ordered VTE Prophylaxis Devices: No VTE Pharmacological Prophylaxi: Yes Assessment/Plan Assessment/Plan Acute respiratory failure sepsis, leukocytosis, tachypnea, and tachycardia hypoxia COPD, acute bronchitis, ER gave IV solumedrol, cipro, nebs, will increase nebs, consult PULM htn, poor control, check echo, consult CV hyperglycemia, Dm2 due to steroid dose, add SSI r/o ACS started in ER, some pain, atypical for angina, NIMA RUBIN MD Jun 17, 2017 10:06
[2017-06-17] MEDS ORDERED: DEXTROSE 50% 25 GM / 50ML DISP.SYRIN. IV PRN (10:15)
[2017-06-17] MEDS ORDERED: ALBUTEROL SULFATE 2.5 MG/3 ML NEBU. NEB PRN (10:15)
[2017-06-17] MEDS: amLODIPine BESYLATE 10 MG TABLET PO SCH (10:24)
[2017-06-17] MEDS: ASPIRIN CHEWABLE 81 MG TABLET. PO SCH (10:24)
[2017-06-17] MEDS: LACTOBACILLUS RHAMNOSUS GG 1 CAPSULE. PO SCH ×2 (10:25→21:05)
[2017-06-17] MEDS: predniSONE 20 MG TABLET PO SCH (10:36)
[2017-06-17] MEDS: CIPROFLOXACIN 400MG PREMIX 200 ML IV SCH ×2 (10:36→21:05)
[2017-06-17 11:00] VITALS: BP 156/98
[2017-06-17] MEDS ORDERED: METOPROLOL SUCC 24HR ER 100 MG TAB.ER.24H. PO SCH (11:00)
--- NOTE | 2017-06-17 11:05 | PDOC2 ---
[facility] 06/17/17 1105: CARDIAC CONSULT DATE OF CONSULT Date of Consult DATE: 06/17/17 TIME: 10:36 REASON FOR CONSULT Reason for Consult: CHF REFERRING PHYSICIAN Referring Physician: Gabriel SOURCE Source: Chart review, Patient HISTORY OF PRESENT ILLNESS HISTORY OF PRESENT ILLNESS This is a pleasant 62 yo male admitted for complains of SOA. Reports that he has been having increased coughing with yellowish sputum sometimes and SOA in the last 2-3 days. He has been compliant with his COPD medications and has not used tobacco for about 5 yrs now. He does not use O2 nor CPAP. He follow [employer] as an outpt. He typically uses 2 pillows to elevate his HOB and this has not changed. Denies any PND and no increased leg swelling. Denies any CAD nor PE in the past. Denies any fever or chills. Denies any decreased appetitie, diarrhea or nausea. He does however does not take any GERD medications and he has been waking up in the morning coughing more. No heartburn. His feeling better today and off bipap. PAST MEDICAL HISTORY Cardiovascular: HTN, Hyperlipidemia, Other (PAD) Pulmonary: COPD CENTRAL NERVOUS SYSTEM: Other (No pertinent history) GI: GI bleed (AVM malformation) Heme/Onc: Other (DVT) Hepatobiliary: No pertinent hx Musculoskeletal: Osteoarthritis Rheumatologic: No pertinent hx Infectious disease: No pertinent hx ENT: No pertinent hx Renal/: No pertinent hx Endocrine: No pertinent hx Dermatology: No pertinent hx PAST SURGICAL HISTORY Past Surgical History: Other (Open arterial revascularization to bilateral LE, follow with Dr. Venegas's group) FAMILY HISTORY Family History: Diabetes SOCIAL HISTORY Smoke: Quit (5 yrs ago >40 ok yr) ALCOHOL: none Drugs: None Lives: with Family CURRENT MEDICATIONS CURRENT MEDICATIONS Current Medications Medications (Trade) Dose Ordered Sig/Hailee Route PRN Reason Start Time Stop Time Status Last Admin Dose Admin Sodium Chloride (Normal Saline Flush) 10 ml 1X ONCE IV 06/16/17 18:00 06/16/17 18:01 DC 06/16/17 17:57 Sodium Chloride 1,000 ml @ 1,000 mls/hr Q1H IV 06/16/17 17:50 06/16/17 18:49 DC 06/16/17 17:57 Albuterol/ Ipratropium (Duoneb) 3 ml 1X ONCE NEB 06/16/17 18:00 06/16/17 18:01 DC 06/16/17 18:14 Methylprednisolone Sodium Succinate (SOLU-Medrol 125MG VIAL) 125 mg 1X ONCE IV 06/16/17 18:00 06/16/17 18:01 DC 06/16/17 18:01 Albuterol/ Ipratropium (Duoneb) 3 ml RTQID NEB 06/16/17 20:00 06/17/17 10:11 DC 06/17/17 07:57 Sodium Chloride 1,000 ml @ 125 mls/hr Q8H IV 06/16/17 18:45 06/17/17 10:15 DC 06/17/17 03:46 Ciprofloxacin/ Dextrose 200 ml @ 200 mls/hr 1X ONCE IV 06/16/17 19:00 06/16/17 19:59 DC 06/16/17 18:54 Lactobacillus Rhamnosus (Culturelle) 1 cap BID PO 06/17/17 09:00 06/17/17 10:25 Influenza Virus Vaccine Quadrival (Fluarix Quad 0420-5983 Syringe) 0.5 ml ONCE ONCE VAX IM 06/17/17 09:00 06/17/17 09:02 DC 06/17/17 10:27 Albuterol/ Ipratropium (Duoneb) 3 ml 1X ONCE NEB 06/17/17 03:30 06/17/17 03:31 DC 06/17/17 03:29 Amlodipine Besylate (Norvasc) 10 mg DAILY PO 06/17/17 11:00 06/17/17 10:24 Aspirin (Children'S Aspirin) 81 mg DAILYWBKFT PO 06/17/17 10:00 06/17/17 10:24 Metoprolol Succinate (Toprol Xl) 100 mg DAILY PO 06/17/17 11:00 06/17/17 10:28 ALLERGIES ALLERGIES: Coded Allergies: Penicillins (Verified Allergy, Intermediate, rash, 11/15/14) ROS Review of System 14 point ROS evaluated with pertinent positives noted per HPI PHYSICAL EXAM General: Alert, Oriented X3, Cooperative, mild distress HEENT: Atraumatic, Mucous membr. moist/pink Lungs: Other (diminished with diffuse wheeze) Heart: Regular rate (SR/ST), Other Abdomen: Soft, No tenderness Extremities: No cyanosis, Other (trace LE) Skin: No breakdown, No significant lesion Neuro: Normal speech, Sensation intact Psych/Mental Status: Mental status NL, Mood NL MUSCULOSKELETAL: Osteoarthritic changes both hands VITALS VITALS Vital Signs Date Time Temp Pulse Resp B/P (MAP) Pulse Ox O2 Delivery O2 Flow Rate FiO2 06/17/17 10:28 100 132/97 06/17/17 07:59 93 Nasal Cannula 3.0 06/17/17 07:00 97.7 18 97.7 LABS Lab: Laboratory Tests Test 06/16/17 17:50 06/16/17 17:55 06/16/17 18:47 06/16/17 20:36 White Blood Count 12.3 x10^3/uL (4.0-11.0) Red Blood Count 4.47 x10^6/uL (4.30-5.70) Hemoglobin 14.6 g/dL (13.0-17.5) Hematocrit 42.6 % (39.0-53.0) Mean Corpuscular Volume 95 fL (79-100) Mean Corpuscular Hemoglobin 33 pg (25-35) Mean Corpuscular Hemoglobin Concent 34 g/dL (31-37) Red Cell Distribution Width 14.7 % (11.5-14.5) Platelet Count 298 x10^3/uL (140-400) Neutrophils (%) (Auto) 80 % (31-73) Lymphocytes (%) (Auto) 14 % (24-48) Monocytes (%) (Auto) 5 % (0-9) Eosinophils (%) (Auto) 1 % (0-3) Basophils (%) (Auto) 1 % (0-3) Neutrophils # (Auto) 9.8 x10^3uL (1.8-7.7) Lymphocytes # (Auto) 1.7 x10^3/uL (1.0-4.8) Monocytes # (Auto) 0.6 x10^3/uL (0.0-1.1) Eosinophils # (Auto) 0.1 x10^3/uL (0.0-0.7) Basophils # (Auto) 0.1 x10^3/uL (0.0-0.2) Sodium Level 134 mmol/L (136-145) Potassium Level 4.1 mmol/L (3.5-5.1) Chloride Level 95 mmol/L (98-107) Carbon Dioxide Level 24 mmol/L (21-32) Anion Gap 15 (6-14) Blood Urea Nitrogen 10 mg/dL (8-26) Creatinine 1.2 mg/dL (0.7-1.3) Estimated GFR (Cockcroft-Gault) 74.2 BUN/Creatinine Ratio 8 (6-20) Glucose Level 257 mg/dL (70-99) Calcium Level 9.9 mg/dL (8.5-10.1) Total Bilirubin 0.7 mg/dL (0.2-1.0) Aspartate Amino Transf (AST/SGOT) 31 U/L (15-37) Alanine Aminotransferase (ALT/SGPT) 41 U/L (16-63) Alkaline Phosphatase 75 U/L (46-116) Creatine Kinase 151 U/L (39-308) Creatine Kinase MB (Mass) 1.5 ng/mL (0.0-3.6) Creatine Kinase MB Relative Index 1.0 % (0-4) Troponin I Quantitative < 0.017 ng/mL (0.000-0.055) UO-Vyy-W-Type Natriuretic Peptide 41 pg/mL (0-124) Total Protein 8.7 g/dL (6.4-8.2) Albumin 4.3 g/dL (3.4-5.0) Albumin/Globulin Ratio 1.0 (1.0-1.7) O2 Saturation 98 % (92-99) Arterial Blood pH 7.40 (7.35-7.45) Arterial Blood pCO2 at Patient Temp 35 mmHg (35-46) Arterial Blood pO2 at Patient Temp 127 mmHg (65-108) Arterial Blood HCO3 21 mmol/L (21-28) Arterial Blood Base Excess -3 mmol/L (-3-3) FiO2 40 Influenza Type A Antigen Negative (NEGATIVE) Influenza Type B Antigen Negative (NEGATIVE) Glucose (Fingerstick) 251 mg/dL (70-99) Test 06/16/17 21:06 06/17/17 00:45 06/17/17 05:00 06/17/17 07:06 Urine Collection Type Unknown Urine Color Yellow Urine Clarity Clear Urine pH 5.5 Urine Specific [place] <=1.005 Urine Protein Negative mg/dL (NEG-TRACE) Urine Glucose (UA) 250 mg/dL (NEG) Urine Ketones (Stick) Negative mg/dL (NEG) Urine Blood Negative (NEG) Urine Nitrite Negative (NEG) Urine Bilirubin Negative (NEG) Urine Urobilinogen Dipstick 0.2 mg/dL (0.2 mg/dL) Urine Leukocyte Esterase Negative (NEG) Urine RBC 0 /HPF (0-2) Urine WBC 0 /HPF (0-4) Urine Squamous Epithelial Cells Occ /LPF Urine Bacteria 0 /HPF (0-FEW) Troponin I Quantitative < 0.017 ng/mL (0.000-0.055) < 0.017 ng/mL (0.000-0.055) Glucose (Fingerstick) 227 mg/dL (70-99) ECHOCARDIOGRAM ECHOCARDIOGRAM <Conclusion> Left ventricle systolic function is normal. The Ejection Fraction is 60-65%. Injection of bubbles documented an interatrial shunt. Doppler and Color Flow revealed trace to mild mitral regurgitation. Doppler and Color Flow revealed mild tricuspid regurgitation. The PA pressure was estimated at 30 mmHg. The IVC is normal in size and collapses >50% with inspiration. There is no evidence of significant pericardial effusion. DATE: 10/10/141824 ASSESSMENT/PLAN ASSESSMENT/PLAN 1. AECOPD 2. Likely GERD exacerbation contributing to airway irritation. Defer to PCP 3. Suspect chronic diastolic CHF: mainly due to pulmonary issue 4. Reactive sinus tachycardia 5. PAD: no claudications. follow closely with Dr. Venegas as an outpt 6. HTN: controlled 7. HLP 8. Hx of DVT in the past 9. Hx of GI bleed: bleeding AVM with endotherapy in 2014 Recommendations 1. TTE today and evaluate valves and pulmonary HTN 2. Continue with secondary prevention. Restart home toprol. 3. No acute CHF, control COPD- follow pulmonary recommendations. Problems: NELDA DOVE MD 06/17/17 1606: CARDIAC CONSULT ALLERGIES ALLERGIES: Coded Allergies: Penicillins (Verified Allergy, Intermediate, rash, 11/15/14) ASSESSMENT/PLAN ASSESSMENT/PLAN Pt. seen and examined. AGree with above BLOOD BANK ASSISTANT note. 62 yo man with acute copd exacerbation No pulm HTN by echo. Labs reviewed. Supportive care. Thanks for consult. Pls call with questions. Will f/u in the office after DC. Problems: ABDON CARRANZA APRN Jun 17, 2017 11:05 NELDA DOVE MD Jun 17, 2017 16:06
[2017-06-17] MEDS ORDERED: IPRATRPIUM/ALBUTEROL 0.5/2.5MG 3 ML NEBU. NEB SCH (12:00)
[2017-06-17] MEDS: INSULIN ASPART 300 UNITS/3 ML INSULN.PEN SQ SCH ×3 (12:11→22:12)
--- NOTE | 2017-06-17 12:46 | PDOC ---
Provider Note Provider Note dictated GHANSHYAM LOMBARDI MD Jun 17, 2017 12:46
--- NOTE | 2017-06-17 13:17 | CONS ---
DATE OF CONSULTATION: ATTENDING PHYSICIAN: Dr. Rios. REASON FOR CONSULTATION: Dyspnea, respiratory failure. HISTORY OF PRESENT ILLNESS: The patient is a 62-year-old male who has history of chronic obstructive airway disease. He is not on home oxygen. He also has peripheral vascular disease. He presented to the hospital after he ate some corona tacos. He says when he woke up the next day, he started to have bloating and belching in his abdomen, and then, he could not catch his breath. He did not have any significant cough or chest pain or fever or chills. He was evaluated in the ER and was having wheezing. As a result, he was hospitalized for further evaluation. Chest x-ray was reviewed by me. There were no obvious infiltrates. His arterial blood gases revealed pH of 7.40, pCO2 of 35 and a pO2 of 127 on 40% FIO2. Currently, he is requiring 3 liters nasal cannula. He is afebrile and seems to be getting better, but still has some wheezing. PAST MEDICAL HISTORY: History of hypertension, history of COPD with an asthmatic component, history of peripheral vascular disease. Low back pain. PAST SURGICAL HISTORY: No recent surgeries. FAMILY HISTORY: Chronic bronchitis and diabetes. SOCIAL HISTORY: Smoked for about 25 years, quit 5 years ago. REVIEW OF SYSTEMS: Twelve-point system review obtained. Pertinent positives discussed in my history of present illness, otherwise noncontributory. All systems that were negative were reviewed as well. ALLERGIES: PENICILLIN. MEDICATIONS: All reviewed as listed in the MRAD. PHYSICAL EXAMINATION: VITAL SIGNS: Reviewed. Blood pressure 156/98, afebrile, pulse ox 95% on 3 liters. NECK: Supple. LUNGS: Faint expiratory wheezing. CARDIOVASCULAR: Regular rate and rhythm. ABDOMEN: Soft, nontender. EXTREMITIES: With no pitting edema. LABORATORY DATA: Reviewed. ABGs as discussed in my history of present illness. BUN and creatinine 10 and 1.2. White cell count 12.3, hemoglobin 14.6 and platelets are 298. IMPRESSION: 1. Acute hypoxic respiratory failure secondary to acute exacerbation of chronic obstructive pulmonary disease, triggered by abdominal bloating and belching. 2. Persistent faint bronchospasm. Currently, he is also on metoprolol and if the wheezing did not resolve, I would recommend discontinuing it or temporarily holding it. 3. No obvious infection in the lungs. No evidence of any acute bronchitis. RECOMMENDATIONS: 1. Continue with present DuoNeb q.4 hours. 2. Continue with oral prednisone. 3. Add Pulmicort nebulizer. 4. If the wheezing does not improve, then consider holding metoprolol until bronchospasm is resolved. 5. Antibiotics, Cipro can be discontinued. 6. Wean off oxygen once clinically improved. May need a 6-minute walk test at the time of discharge. I discussed with RN. GHANSHYAM LOMBARDI MD DR: JAYLA/tamia JOB#: [id number] / [id number]
[2017-06-17 15:00] VITALS: BP 139/91
--- NOTE | 2017-06-17 15:40 | CARD ---
APPROVED REPORT EXAM: Two-dimensional and M-mode echocardiogram with Doppler and color Doppler. INDICATION COPD Congenital Heart Disease 2D DIMENSIONS Left Atrium(2D)3.3 (1.6-4.0cm)IVSd1.1 (0.7-1.1cm) Aortic Root(2D)3.3 (2.0-3.7cm)LVDd4.0 (3.9-5.9cm) LVOT Diameter2.0 (1.8-2.4cm)PWd1.0 (0.7-1.1cm) LVDs2.8 (2.5-4.0cm)FS (%) 30.9 % SV41.1 mlLVEF(%)59.2 (>50%) Aortic Valve AoV Peak David.128.0cm/sAoV VTI22.8cm AO Peak GR.6.6mmHgLVOT Peak David.122.2cm/s AO Mean GR.3mmHgAVA (VMAX)2.92cm2 [place] (VTI)2.90cm2 Mitral Valve MV E Dnglrtmj70.7cm/sMV DECEL RIBP726ri MV A Ibkhsamr715.3cm/sE/A Ratio0.7 Tricuspid Valve TR P. Amxsxjyn110qh/sRAP FVJPAORL5zcVk TR Peak Gr.02mbZoKNOJ31ojEi LEFT VENTRICLE The left ventricle is normal size. There is normal left ventricular wall thickness. Left ventricle sy stolic function is normal. The Ejection Fraction is 55-60%. There is normal LV segmental wall motion. Transmitral Doppler flow pattern is Grade I-abnormal relaxation pattern. RIGHT VENTRICLE The right ventricle is normal size. There is normal right ventricular wall thickness. The right ventr icular systolic function is normal. ATRIA The left atrium size is normal. The right atrium size is normal. The interatrial septum is intact wit h no evidence for an atrial septal defect or patent foramen ovale as noted on 2-D or Doppler imaging. AORTIC VALVE The aortic valve is mildly thickened but opens well. Doppler and Color Flow revealed no significant a ortic regurgitation. There is no significant aortic valvular stenosis. MITRAL VALVE The mitral valve is thickened but opens well. There is no evidence of mitral valve prolapse. There is no mitral valve stenosis. Doppler and Color Flow revealed no mitral valve regurgitation noted. TRICUSPID VALVE The tricuspid valve is normal in structure and function. Doppler and Color Flow revealed trace tricus pid regurgitation. There is no pulmonary hypertension. The PA pressure was estimated at 19 mmHg. Ther e is no tricuspid valve stenosis. PULMONIC VALVE The pulmonary valve is normal in structure and function. Doppler and Color Flow revealed no pulmonic valvular regurgitation. There is no pulmonic valvular stenosis. GREAT VESSELS The aortic root is normal in size. The ascending aorta is normal in size. The IVC is normal in size a nd collapses >50% with inspiration. PERICARDIAL EFFUSION There is no pleural effusion. There is no evidence of significant pericardial effusion. Critical Notification Critical Value: No <Conclusion> Left ventricle systolic function is normal. The Ejection Fraction is 55-60%. There is normal LV segmental wall motion. Transmitral Doppler flow pattern is Grade I-abnormal relaxation pattern. Doppler and Color Flow revealed trace tricuspid regurgitation. The PA pressure was estimated at 19 mmHg. There is no evidence of significant pericardial effusion.
[2017-06-17 19:57] VITALS: BP 132/89
[2017-06-17] MEDS: BUDESONIDE 0.5 MG/2 ML NEBU. NEB SCH (20:34)
[2017-06-17] MEDS ORDERED: ATORVASTATIN CALCIUM 40 MG TABLET. PO SCH (21:00)
[2017-06-17 23:44] VITALS: BP 140/87
[2017-06-18 03:34] VITALS: BP 133/90
[2017-06-18 07:00] VITALS: BP 145/95
[2017-06-18] MEDS: BUDESONIDE 0.5 MG/2 ML NEBU. NEB SCH (07:38)
[2017-06-18] MEDS: IPRATRPIUM/ALBUTEROL 0.5/2.5MG 3 ML NEBU. NEB SCH ×3 (07:38→14:46)
[2017-06-18] MEDS: ASPIRIN CHEWABLE 81 MG TABLET. PO SCH (08:45)
[2017-06-18] MEDS: CIPROFLOXACIN 400MG PREMIX 200 ML IV SCH (08:46)
[2017-06-18] MEDS: predniSONE 20 MG TABLET PO SCH (08:47)
[2017-06-18] MEDS: amLODIPine BESYLATE 10 MG TABLET PO SCH (08:47)
[2017-06-18] MEDS: INSULIN ASPART 300 UNITS/3 ML INSULN.PEN SQ SCH ×2 (08:57→12:08)
--- NOTE | 2017-06-18 09:35 | PDOC ---
PULMONARY PROGRESS NOTES Subjective sob, cough much improved, no pain, has post nasal drip. wants to go home. Vitals Vital Signs Date Time Temp Pulse Resp B/P (MAP) Pulse Ox O2 Delivery O2 Flow Rate FiO2 06/18/17 08:47 72 145/95 06/18/17 07:38 93 Room Air 06/18/17 07:00 98.0 18 98.0 06/18/17 04:32 2.0 General: Alert, No acute distress, Mild Distress Lungs: Other (a few end exp wheezing) Cardiovascular: S1, S2 Abdomen: Soft, Non-tender Neuro Exam: Alert, Oriented Extremities: No Edema Skin: Warm Labs Laboratory Tests Test 06/16/17 17:50 06/16/17 17:55 06/16/17 18:47 06/16/17 20:36 White Blood Count 12.3 x10^3/uL (4.0-11.0) Red Blood Count 4.47 x10^6/uL (4.30-5.70) Hemoglobin 14.6 g/dL (13.0-17.5) Hematocrit 42.6 % (39.0-53.0) Mean Corpuscular Volume 95 fL (79-100) Mean Corpuscular Hemoglobin 33 pg (25-35) Mean Corpuscular Hemoglobin Concent 34 g/dL (31-37) Red Cell Distribution Width 14.7 % (11.5-14.5) Platelet Count 298 x10^3/uL (140-400) Neutrophils (%) (Auto) 80 % (31-73) Lymphocytes (%) (Auto) 14 % (24-48) Monocytes (%) (Auto) 5 % (0-9) Eosinophils (%) (Auto) 1 % (0-3) Basophils (%) (Auto) 1 % (0-3) Neutrophils # (Auto) 9.8 x10^3uL (1.8-7.7) Lymphocytes # (Auto) 1.7 x10^3/uL (1.0-4.8) Monocytes # (Auto) 0.6 x10^3/uL (0.0-1.1) Eosinophils # (Auto) 0.1 x10^3/uL (0.0-0.7) Basophils # (Auto) 0.1 x10^3/uL (0.0-0.2) Sodium Level 134 mmol/L (136-145) Potassium Level 4.1 mmol/L (3.5-5.1) Chloride Level 95 mmol/L (98-107) Carbon Dioxide Level 24 mmol/L (21-32) Anion Gap 15 (6-14) Blood Urea Nitrogen 10 mg/dL (8-26) Creatinine 1.2 mg/dL (0.7-1.3) Estimated GFR (Cockcroft-Gault) 74.2 BUN/Creatinine Ratio 8 (6-20) Glucose Level 257 mg/dL (70-99) Calcium Level 9.9 mg/dL (8.5-10.1) Total Bilirubin 0.7 mg/dL (0.2-1.0) Aspartate Amino Transf (AST/SGOT) 31 U/L (15-37) Alanine Aminotransferase (ALT/SGPT) 41 U/L (16-63) Alkaline Phosphatase 75 U/L (46-116) Creatine Kinase 151 U/L (39-308) Creatine Kinase MB (Mass) 1.5 ng/mL (0.0-3.6) Creatine Kinase MB Relative Index 1.0 % (0-4) Troponin I Quantitative < 0.017 ng/mL (0.000-0.055) JF-Div-Z-Type Natriuretic Peptide 41 pg/mL (0-124) Total Protein 8.7 g/dL (6.4-8.2) Albumin 4.3 g/dL (3.4-5.0) Albumin/Globulin Ratio 1.0 (1.0-1.7) O2 Saturation 98 % (92-99) Arterial Blood pH 7.40 (7.35-7.45) Arterial Blood pCO2 at Patient Temp 35 mmHg (35-46) Arterial Blood pO2 at Patient Temp 127 mmHg (65-108) Arterial Blood HCO3 21 mmol/L (21-28) Arterial Blood Base Excess -3 mmol/L (-3-3) FiO2 40 Influenza Type A Antigen Negative (NEGATIVE) Influenza Type B Antigen Negative (NEGATIVE) Glucose (Fingerstick) 251 mg/dL (70-99) Test 06/16/17 21:06 06/17/17 00:45 06/17/17 05:00 06/17/17 07:06 Urine Collection Type Unknown Urine Color Yellow Urine Clarity Clear Urine pH 5.5 Urine Specific [place] <=1.005 Urine Protein Negative mg/dL (NEG-TRACE) Urine Glucose (UA) 250 mg/dL (NEG) Urine Ketones (Stick) Negative mg/dL (NEG) Urine Blood Negative (NEG) Urine Nitrite Negative (NEG) Urine Bilirubin Negative (NEG) Urine Urobilinogen Dipstick 0.2 mg/dL (0.2 mg/dL) Urine Leukocyte Esterase Negative (NEG) Urine RBC 0 /HPF (0-2) Urine WBC 0 /HPF (0-4) Urine Squamous Epithelial Cells Occ /LPF Urine Bacteria 0 /HPF (0-FEW) Troponin I Quantitative < 0.017 ng/mL (0.000-0.055) < 0.017 ng/mL (0.000-0.055) Glucose (Fingerstick) 227 mg/dL (70-99) Test 06/17/17 10:24 06/17/17 12:04 06/17/17 16:35 06/17/17 21:13 Glucose (Fingerstick) 313 mg/dL (70-99) 286 mg/dL (70-99) 230 mg/dL (70-99) 235 mg/dL (70-99) Test 06/18/17 07:16 Glucose (Fingerstick) 240 mg/dL (70-99) Laboratory Tests Test 06/17/17 10:24 06/17/17 12:04 06/17/17 16:35 06/17/17 21:13 Glucose (Fingerstick) 313 mg/dL (70-99) 286 mg/dL (70-99) 230 mg/dL (70-99) 235 mg/dL (70-99) Test 06/18/17 07:16 Glucose (Fingerstick) 240 mg/dL (70-99) Medications Active Scripts Medications Dose Route/Sig Max Daily Dose Days Date Category Tudorza Pressair (Aclidinium Rodney) 400 Mcg Aer.pow.ba 400 Mcg INH 04/11/17 Reported Qvar 40MCG Inhaler (Beclomethasone Dipropionate) 8.7 Gm Aer.w.adap 40 Mcg INH 04/11/17 Reported Cheratussin Ac Syrup (Guaifenesin/Codeine Phosphate) 118 Ml Liquid 118 Ml PO 04/11/17 Reported Ventolin Hfa Inhaler (Albuterol Sulfate) 18 Gm Hfa.aer.ad 2 Puff PO Q4HRS PRN 03/18/16 Reported Duoneb 0.5-3(2.5) Mg/3 Ml (Albuterol/Ipratropium) 3 Ml Ampul.neb 3 Ml NEB QID 03/18/16 Reported Amlodipine Besylate 10 Mg Tablet 10 Mg PO DAILY 03/18/16 Reported Metoprolol Succinate ( Xl ) (Metoprolol Succinate) 100 Mg Tab.er.24h 100 Mg PO DAILY 03/18/16 Reported Aspirin 81 Mg Tab.chew 1 Tab PO DAILY 03/18/16 Reported Atorvastatin Calcium 40 Mg Tablet 1 Tab PO DAILY 10/09/14 Reported Impression . IMPRESSION: 1. Acute hypoxic respiratory failure secondary to acute exacerbation of chronic obstructive pulmonary disease, triggered by abdominal bloating and belching. 2. Persistent faint bronchospasm. Currently, he is also on metoprolol and if the wheezing did not resolve, I would recommend discontinuing it or temporarily holding it. 3. No obvious infection in the lungs. No evidence of any acute bronchitis. 4. allergic rhinitis Plan . RECOMMENDATIONS: 1. Continue with present DuoNeb q.4 hours. 2. Continue with oral prednisone w taper by 10 mg q 3d. 3. Pulmicort nebulizer. 4. If the wheezing does not improve, then consider holding metoprolol until bronchospasm is resolved. 5. Antibiotics, Cipro can be discontinued. 6. Wean off oxygen 7. add singulair. ok to dc from pulm standpoint. when discharged may start symbicort 160 bid and albuterol to use prn for home use discussed w RADHA Hoffman MD Jun 18, 2017 09:35
[2017-06-18 10:47] VITALS: BP 134/92
[2017-06-18] MEDS: LACTOBACILLUS RHAMNOSUS GG 1 CAPSULE. PO SCH (12:05)
[2017-06-18] MEDS ORDERED: CIPR500T94 PO (13:51)
[2017-06-18] MEDS ORDERED: BUDE10.2 IH (13:51)
[2017-06-18] MEDS ORDERED: METO-239 PO (13:51)
[2017-06-18] MEDS ORDERED: GUAI120L35 PO (13:51)
[2017-06-18] MEDS ORDERED: PRED-220 PO (13:51)
== END 2017-06-18 15:10 | disposition home or self-care (01) | DRG 871 ==
LOC: ER 17:37 → 5 NORTH 18:37
PROVIDERS: ADMIT Internal Medicine; ATTEND Internal Medicine
PROC: 5A09357 Assistance with Respiratory Ventilation, Less than 24 Consecutive Hours, Continuous Positive Airway Pressure (ICD-10-PCS; principal; 2017-06-16)
PROC: 3E0234Z Introduction of Serum, Toxoid and Vaccine into Muscle, Percutaneous Approach (ICD-10-PCS; 2017-06-16)
DX: A41.9 Sepsis, unspecified organism (principal); J96.01 Acute respiratory failure with hypoxia; J44.0 Chronic obstructive pulmonary disease with (acute) lower respiratory infection; J44.1 Chronic obstructive pulmonary disease with (acute) exacerbation; M19.90 Unspecified osteoarthritis, unspecified site; E11.65 Type 2 diabetes mellitus with hyperglycemia; M54.5 Low back pain; J98.01 Acute bronchospasm; I10 Essential (primary) hypertension; J30.9 Allergic rhinitis, unspecified; E11.51 Type 2 diabetes mellitus with diabetic peripheral angiopathy without gangrene; E78.5 Hyperlipidemia, unspecified; T38.0X5A Adverse effect of glucocorticoids and synthetic analogues, initial encounter; Z88.0 Allergy status to penicillin; Z87.891 Personal history of nicotine dependence; Z86.718 Personal history of other venous thrombosis and embolism; Z83.3 Family history of diabetes mellitus; Z82.5 Family history of asthma and other chronic lower respiratory diseases; Z23 Encounter for immunization
CPT/HCPCS: 36415; 36600; 71010; 80053; 81001; 82553; 82805; 82962; 83880; 84484; 85025; 87804; 90686; 93005; 93306; 94250; 94640; 94660; 94760; 96365; 96375; 99291; J0744; J1815; J2930; J7030; J7512; J7613; J7620; J7626

== ENCOUNTER 2020-04-18 13:16 | Inpatient (IN) | payer MEDICARE ==
[2020-04-18] VITALS (8 sets, daily range): BP systolic 119–212; BP diastolic 80–116
[~2020-04-18] VITALS: Ht 180.3 cm; Wt 75.4 kg
[~2020-04-18 13:16] MED LIST changes: -ACLI400A2 INH; +ACLI400A3 INH; +ALBU2.5V8 IH; -AMLO10TA2 PO; +AMLO10TA8 PO; +AMLO5TAB10 PO; -AMLO5TAB2 PO; +BUDE10.2 IH; +CIPR500T94 PO; +FLUT1BLS3 IH; +GUAI120L35 PO; +HYDR-2145 PO; -IPRA3AMP NEB; +IPRA3AMP29 NEB; +METF-658 PO; +METF500T16 PO; -METF500T4 PO; -METF500T9 PO; +METO-239 PO; +MONT10TA49 PO; -PANT40TA3 PO; -PANT40TA5 PO; +PANT40TA77 PO; +PRED-220 PO; -PROAIR HFA8.5 GM IH
[2020-04-18] MEDS ORDERED: methylPREDNISolone SOD SUCC PF 125 MG/2 ML VIAL. IV ONE (13:30)
[2020-04-18] MEDS ORDERED: ALBUTEROL SULFATE 2.5 MG/3 ML NEBU. CONT NEB ONE (13:30)
--- NOTE | 2020-04-18 13:42 | EKG ---
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
[2020-04-18 13:53] LABS: BASE EXCESS COOX -1 mmol/L (-3-3); HCO3 COOX 24 mmol/L (21-28); METHEMOGLOBIN 0.5 % (0.0-1.9); OXYHEMOGLOBIN 94.9 %; PCO2 COOX 37 mmHg (35-46); PO2 COOX 86 mmHg (65-108); SAT O2 COOX 96 % (92-99)
[2020-04-18 13:56] LABS: BASO # 0.1 x10^3/uL (0.0-0.2); BASO % 1 % (0-3); EOS # 0.6 x10^3/uL (0.0-0.7); EOS % 5 % (0-3); HEMATOCRIT 45.6 % (39.0-53.0); HEMOGLOBIN 15.3 g/dL (13.0-17.5); LYMPH # 1.2 x10^3/uL (1.0-4.8); LYMPH % 10 % (24-48); MEAN CORPUSCULAR HEMOGLOBIN 29 pg (25-35); MEAN CORPUSCULAR HGB CONC 34 g/dL (31-37); MEAN CORPUSCULAR VOLUME 87 fL (79-100); MONO # 0.9 x10^3/uL (0.0-1.1); MONO % 7 % (0-9); NEUT # 9.5 x10^3/uL (1.8-7.7); NEUT % 78 % (31-73); PLATELET COUNT 429 x10^3/uL (140-400); RED BLOOD COUNT 5.25 x10^6/uL (4.30-5.70); RED CELL DISTRIBUTION WIDTH 14.2 % (11.5-14.5); WHITE BLOOD COUNT 12.2 x10^3/uL (4.0-11.0)
[2020-04-18 14:06] LABS: PROTHROMBIN TIME PATIENT 12.7 SEC (11.7-14.0)
--- NOTE | 2020-04-18 14:06 | RAD ---
EXAM: CHEST 1 VIEW History: Chest pain COMPARISON: 01/04/2020 TECHNIQUE: Single portable radiograph of the chest FINDINGS: The cardiac silhouette is unremarkable. The lungs are clear bilaterally. The costophrenic sulci are clear and well demarcated. IMPRESSION: No radiographic evidence of an acute cardiopulmonary process. Electronically signed by: Alexys Stark MD (04/18/2020 2:02 PM) [id number]
[2020-04-18 15:06] LABS: CALCIUM 9.3 mg/dL (8.5-10.1); GFR 90.7; POTASSIUM 3.8 mmol/L (3.5-5.1)
[2020-04-18 15:11] LABS: ALBUMIN 4.6 g/dL (3.4-5.0); ALBUMIN/GLOBULIN RATIO 1.2 (1.0-1.7); MAGNESIUM 1.3 mg/dL (1.8-2.4); TOTAL BILIRUBIN 0.8 mg/dL (0.2-1.0); TOTAL PROTEIN 8.5 g/dL (6.4-8.2)
[2020-04-18] MEDS ORDERED: MAGNESIUM SULFATE 1GM 100 ML IV ONE (15:30)
[2020-04-18] MEDS ORDERED: ALBUTEROL SULFATE 2.5 MG/3 ML NEBU. NEB PRN ×2 (15:30→15:45)
[2020-04-18] MEDS ORDERED: ZOLPIDEM 5 MG TABLET. PO PRN (15:30)
[2020-04-18] MEDS ORDERED: MAG HYDROX/ALUMINUM HYD/SIMETH 30 ML ORAL.SUSP PO PRN (15:30)
[2020-04-18] MEDS ORDERED: ONDANSETRON PF 4 MG/2 ML VIAL. IV PRN (15:30)
[2020-04-18] MEDS ORDERED: DOCUSATE SODIUM 100 MG CAPSULE. PO PRN (15:30)
[2020-04-18] MEDS ORDERED: ACETAMINOPHEN 325 MG TABLET. PO PRN (15:30)
[2020-04-18] MEDS ORDERED: IV NORMAL SALINE 1000ML BAG 1,000 ML IV ONE (15:30)
--- NOTE | 2020-04-18 15:41 | PHYS DOC ---
Past Medical History Past Medical History: Asthma, COPD, Diabetes-Type II Additional Past Medical Histor: smoker (RACHEL HARRY APRN) Past Surgical History: Other Additional Past Surgical Histo: L calf thrombectomy, RT FEM POP,CLIP PLACED IN COLON (RACHEL HARRY APRN) Smoking Status: Former Smoker Alcohol Use: Rarely Drug Use: None (RACHEL HARRY APRN) General Adult EDM: Chief Complaint: SHORTNESS OF BREATH HPI: HPI: Patient is a 65 year old AA male who presents to the emergency department via EMS today with complaints of shortness of breath that has been worsening over the last 4 days. Patient reports that the shortness of breath increases with exertion, he reports chest congestion. Patient denies any fever, sore throat, cough, body aches, fatigue, nausea, vomiting, diarrhea, abdominal pain, headache, or ear pain. He denies any known exposure to COVID-19. Patient reports that he lives at home with his and she works at [employer]. He currently denies any pain. (RACHEL HARRY APRN) Review of Systems: Review of Systems: Constitutional: Denies fever or chills. [] Eyes: Denies change in visual acuity. [] HENT: Denies nasal congestion or sore throat. [] Respiratory: See HPI Cardiovascular: Denies chest pain or edema; see HPI. [] GI: Denies abdominal pain, nausea, vomiting, or diarrhea. [] Musculoskeletal: Denies back pain or joint pain. [] Integument: Denies rash. [] Neurologic: Denies headache, focal weakness or sensory changes. [] Psychiatric: Denies depression or anxiety. [] (RACHEL HARRY CARE NAVIGATOR) Heart Score: Risk Factors: Risk Factors: DM, Current or recent (<one month) smoker, HTN, HLP, family history of CAD, obesity. Risk Scores: Score 0 - 3: 2.5% MACE over next 6 weeks - Discharge Home Score 4 - 6: 20.3% MACE over next 6 weeks - Admit for Clinical Observation Score 7 - 10: 72.7% MACE over next 6 weeks - Early Invasive Strategies (RACHEL HARRY APRN) Current Medications: Current Medications Medications (Trade) Dose Ordered Sig/Hailee Start Time Stop Time Status Last Admin Dose Admin Acetaminophen (Tylenol) 650 mg PRN Q4HRS PRN 04/18/20 15:30 UNV Al Hydroxide/Mg Hydroxide (Mylanta Plus Xs) 30 ml PRN DAILY PRN 04/18/20 15:30 UNV Albuterol Sulfate (Ventolin Neb Soln) 2.5 mg PRN Q4HRS PRN 04/18/20 15:30 UNV Albuterol/ Ipratropium (Duoneb) 3 ml QID 04/18/20 17:00 UNV Amlodipine Besylate (Norvasc) 10 mg DAILY 04/19/20 09:00 UNV Aspirin (Aspirin Chewable) 81 mg DAILY 04/19/20 09:00 UNV Atorvastatin Calcium (Lipitor) 40 mg DAILY 04/19/20 09:00 UNV Docusate Sodium (Colace) 100 mg PRN BID PRN 04/18/20 15:30 UNV Enoxaparin Sodium (Lovenox 40mg Syringe) 40 mg Q24H 04/18/20 15:30 UNV Guaifenesin (Robitussin) 200 mg PRN Q4HRS PRN 04/18/20 15:30 UNV Levofloxacin/ Dextrose 100 ml @ 100 mls/hr Q24H 04/18/20 15:30 UNV Lorazepam (Ativan) 0.5 mg PRN Q4HRS PRN 04/18/20 15:30 UNV Magnesium Sulfate/ Dextrose 100 ml @ 100 mls/hr 1X ONCE 04/18/20 15:30 04/18/20 16:29 Methylprednisolone Sodium Succinate (SOLU-Medrol 125MG VIAL) 125 mg 1X ONCE 04/18/20 13:30 04/18/20 13:33 DC 04/18/20 13:30 125 MG Metoprolol Succinate (Toprol Xl) 25 mg DAILY 04/19/20 09:00 UNV Montelukast Sodium (Singulair) 10 mg HS 04/18/20 21:00 UNV Non-Formulary Medication (Albuterol Sulfate (Ventolin Hfa Inhaler)) 2 puff Q4HRS PRN 04/18/20 15:30 UNV Non-Formulary Medication (Fluticasone/ Umeclidin/ Vilanter (Trelegy Ellipta 100-62.5-25)) 1 each PRN DAILY PRN 04/18/20 15:30 UNV Ondansetron HCl (Zofran) 4 mg PRN Q4HRS PRN 04/18/20 15:30 UNV Pantoprazole Sodium (Protonix) 40 mg DAILYAC 04/19/20 07:30 UNV Sodium Chloride 1,000 ml @ 100 mls/hr Q10H 04/18/20 15:27 04/19/20 15:26 UNV Zolpidem Tartrate (Ambien) 5 mg PRN QHS PRN 04/18/20 15:30 UNV (RACHEL HARRY APRN) Allergies: Allergies: Allergies Coded Allergies Type Severity Reaction Last Updated Verified Penicillins Allergy Intermediate rash 11/15/14 Yes (RACHEL HARRY APRN) Physical Exam: PE: Constitutional: Well developed, well nourished, no acute distress, ill appearance. [] HENT: Normocephalic, atraumatic, bilateral external ears normal, oropharynx dry, nose normal. [] Eyes: PERRLA, EOMI, conjunctiva normal, no discharge. [] Neck: Normal range of motion, no stridor. [] Cardiovascular:Heart rate regular tachycardic rhythm Lungs & Thorax: Bilateral breath sounds expiratory wheezes throughou, diminished in the bases, mild retractions, increased respiratory rate, speaking 4-5 words at a time Abdomen: soft, no tenderness Skin: Warm, dry, no erythema, no rash. [] Back: No tenderness Extremities: No cyanosis, no clubbing, ROM intact, no edema. [] Neurologic: Alert and oriented X 3, no focal deficits noted. [] Psychologic: Affect normal, judgement normal, mood normal. [] (RACHEL HARRY APRN) PE: Moderate respiratory distress, wheezing with decreased breath sounds (SERJIO XIAO MD) Current Patient Data: Labs: Laboratory Tests Test 04/18/20 13:40 04/18/20 13:49 White Blood Count 12.2 x10^3/uL (4.0-11.0) H Red Blood Count 5.25 x10^6/uL (4.30-5.70) Hemoglobin 15.3 g/dL (13.0-17.5) Hematocrit 45.6 % (39.0-53.0) Mean Corpuscular Volume 87 fL (79-100) Mean Corpuscular Hemoglobin 29 pg (25-35) Mean Corpuscular Hemoglobin Concent 34 g/dL (31-37) Red Cell Distribution Width 14.2 % (11.5-14.5) Platelet Count 429 x10^3/uL (140-400) H Neutrophils (%) (Auto) 78 % (31-73) H Lymphocytes (%) (Auto) 10 % (24-48) L Monocytes (%) (Auto) 7 % (0-9) Eosinophils (%) (Auto) 5 % (0-3) H Basophils (%) (Auto) 1 % (0-3) Neutrophils # (Auto) 9.5 x10^3/uL (1.8-7.7) H Lymphocytes # (Auto) 1.2 x10^3/uL (1.0-4.8) Monocytes # (Auto) 0.9 x10^3/uL (0.0-1.1) Eosinophils # (Auto) 0.6 x10^3/uL (0.0-0.7) Basophils # (Auto) 0.1 x10^3/uL (0.0-0.2) Prothrombin Time 12.7 SEC (11.7-14.0) Prothrombin Time INR 1.0 (0.8-1.1) Activated Partial Thromboplast Time 27 SEC (24-38) Sodium Level 120 mmol/L (136-145) *L Potassium Level 3.8 mmol/L (3.5-5.1) Chloride Level 81 mmol/L (98-107) L Carbon Dioxide Level 28 mmol/L (21-32) Anion Gap 11 (6-14) Blood Urea Nitrogen 10 mg/dL (8-26) Creatinine 1.0 mg/dL (0.7-1.3) Estimated GFR (Cockcroft-Gault) 90.7 BUN/Creatinine Ratio 10 (6-20) Glucose Level 174 mg/dL (70-99) H Calcium Level 9.3 mg/dL (8.5-10.1) Magnesium Level 1.3 mg/dL (1.8-2.4) L Total Bilirubin 0.8 mg/dL (0.2-1.0) Aspartate Amino Transferase (AST) 60 U/L (15-37) H Alanine Aminotransferase (ALT) 84 U/L (16-63) H Alkaline Phosphatase 67 U/L (46-116) Creatine Kinase 469 U/L (39-308) H Creatine Kinase MB (Mass) 14.4 ng/mL (0.0-3.6) H Creatine Kinase MB Relative Index 3.1 % (0-4) Troponin I Quantitative < 0.017 ng/mL (0.000-0.055) DZ-[id number]-T-Type Natriuretic Peptide 142 pg/mL (0-124) H Total Protein 8.5 g/dL (6.4-8.2) H Albumin 4.6 g/dL (3.4-5.0) Albumin/Globulin Ratio 1.2 (1.0-1.7) O2 Saturation 96 % (92-99) Arterial Blood pH 7.42 (7.35-7.45) Arterial Blood pCO2 at Patient Temp 37 mmHg (35-46) Arterial Blood pO2 at Patient Temp 86 mmHg (65-108) Arterial Blood HCO3 24 mmol/L (21-28) Arterial Blood Base Excess -1 mmol/L (-3-3) Oxyhemoglobin 94.9 % Methemoglobin 0.5 % (0.0-1.9) Carbon Monoxide, Quantitative 0.4 % (0.0-1.9) FiO2 36 Laboratory Tests 04/18/20 13:40 Laboratory Tests 04/18/20 13:40 Vital Signs: Vital Signs Date Time Temp Pulse Resp B/P (MAP) Pulse Ox O2 Delivery O2 Flow Rate FiO2 04/18/20 14:20 116 28 181/101 (127) 98 Nasal Cannula 3.0 04/18/20 13:16 96.4 96.4 (RACHEL HARRY APRN) EKG: EK-sinus tachycardia, rate of 120, no STEMI read by Dr. Xiao[] (RACHEL HARRY APRN) Radiology/Procedures: Radiology/Procedures: PROCEDURE: CHEST AP ONLY EXAM: CHEST 1 VIEW History: Chest pain COMPARISON: 01/04/2020 TECHNIQUE: Single portable radiograph of the chest FINDINGS: The cardiac silhouette is unremarkable. The lungs are clear bilaterally. The costophrenic sulci are clear and well demarcated. IMPRESSION: No radiographic evidence of an acute cardiopulmonary process. [] (RACHEL HARRY APRN) Course & Med Decision Making: Course & Med Decision Making Pertinent Labs and Imaging studies reviewed. (See chart for details) 1523-Dr. Xiao spoke with who is the admitting physician, and care was assumed following discussion of patient. Will admit for COPD exacerbation, hyponatremia, and PUI Patient's vital signs stable. Patient remains afebrile, respirations improved. Patient will be admitted to the CVC floor. Patient's case and plan of care were discussed with Dr. Xiao who wrote Emergency bridge orders. COVID-19 CRITERIA: The patient was evaluated during the global COVID-19 pandemic, and that diagnosis was suspected/considered upon their initial presentation. Their evaluation, treatment and testing was consistent with current guidelines for patients who present with complaints or symptoms that may be related to COVID-19. [] (RACHEL HARRY APRN) Course & Med Decision Making I have personally interviewed and examined patient. All charts, labs and imaging studies were reviewed. I agreed with the PA/YARD ASSISTANT's findings, exam and plan of care I discussed the case with who admit. Patient given IV fluids and steroids and breathing treatments. While waiting for inpatient bed patient did have some decompensation and responded well to respiratory therapy treatments. (SERJIO XIAO MD) Dragon Disclaimer: Dragon Disclaimer: This electronic medical record was generated, in whole or in part, using a voice recognition dictation system. (RACHEL HARRY APRN) Departure Departure Impression: Primary Impression: COPD with acute exacerbation Additional Impressions: Person under investigation for COVID-19 Hyponatremia Disposition: ADMITTED INPATIENT Admitting Physician: JAGDISH Sales) (RACHEL HARRY APRN) Condition: STABLE Referrals: DHAVAL BILLINGS MD (PCP) Justicifation of Admission Dx: Justifications for Admission: Justification of Admission Dx: Yes Acute COPD Exacerbation: Acute COPD Exacerbation (RACHEL HARRY APRN) COVID-19 Assessment: COVID-19 Patient Risks: Age 65 or older: Yes Sign of co-morbidity: Yes Exp to person + for COVID: No Exp to PUI: No Travel from affected area: No Lower respiratory symptoms: Yes Fever: No (RACHEL HARRY APRN) PPE Use: Full PPE with N95 mask or PAPR: Yes (RACHEL HARRY APRN) RACHEL HARRY APRN Apr 18, 2020 15:41 SERJIO XIAO MD Apr 18, 2020 17:40
[2020-04-18] MEDS: IPRATRPIUM/ALBUTEROL 0.5/2.5MG 3 ML NEBU. NEB SCH ×2 (16:00→20:00)
[2020-04-18] MEDS ORDERED: methylPREDNISolone SOD SUCC PF 40 MG/ML VIAL. IV ONE (18:15)
[2020-04-18] MEDS: STERILE WATER for RESP 1,000 ML BAG. INH PRN (18:42)
[2020-04-18] MEDS ORDERED: IV NORMAL SALINE 500ML BAG 500 ML IV PRN (18:45)
[2020-04-18] MEDS ORDERED: ATROPINE 0.5 MG/5 ML DISP.SYRINGE. IV PRN (18:45)
[2020-04-18] MEDS ORDERED: MAGNESIUM SULFATE 4GM 100 ML IV ONE (19:00)
[2020-04-18] MEDS: IV NORMAL SALINE 1000ML BAG 1,000 ML IV SCH (19:45)
[2020-04-18] MEDS: ASCORBIC ACID 500 MG TABLET PO SCH (19:45)
[2020-04-18] MEDS: THIAMINE INJ 200 MG in IV DEXTROSE 5% 50 ML IV SCH (19:46)
[2020-04-18] MEDS: AZITHROMYCIN 500 MG in IV NORMAL SALINE 250ML 250 ML IV SCH (19:47)
[2020-04-18] MEDS: BUDESONIDE 0.5 MG/2 ML NEBU. NEB SCH (20:00)
[2020-04-18 20:17] LABS: BASE EXCESS COOX -1 mmol/L (-3-3); HCO3 COOX 25 mmol/L (21-28); METHEMOGLOBIN 0.5 % (0.0-1.9); OXYHEMOGLOBIN 98.1 %; PCO2 COOX 46 mmHg (35-46); PO2 COOX 167 mmHg (65-108); SAT O2 COOX 99 % (92-99)
[2020-04-18] MEDS: DEXMEDETOMIDINE 400 MCG in IV NORMAL SALINE 100ML 96 ML IV PRN (20:23)
[2020-04-18] MEDS: ATORVASTATIN CALCIUM 40 MG TABLET. PO SCH (21:12)
[2020-04-18] MEDS: MONTELUKAST SODIUM 10 MG TABLET. PO SCH (21:12)
[2020-04-18] MEDS: CHOLECALCIFEROL (VITAMIN D3) 1,000 UNIT TABLET PO SCH (21:12)
[2020-04-18] MEDS: methylPREDNISolone SOD SUCC PF 40 MG/ML VIAL. IV SCH (21:12)
[2020-04-18] MEDS: ENOXAPARIN 40 MG/0.4 ML SYRINGE. SQ SCH (21:13)
--- NOTE | 2020-04-18 22:13 | PDOC1 ---
History and Physical Date of Admission Date of Admission 04/18/2020 Identification/Chief Complaint Chief Complaint I cannot breathe Source Source: Chart review, Patient History of Present Illness History of Present Illness Patient is a 65-year-old gentleman with past medical history of type 2 diabetes COPD who was in his usual state of health until approximately 3 to 4 days prior to his admit, the patient is severely short of breath and unable to speak not even a few words, his respiratory status is quite guarded. He did not give any history of exposure to COVID-19 prior to his symptoms unfortunately from the time he was evaluated by emergency department physician to the time of my evaluating the patient he is respiratory status has certainly declined and exhibiting increased work of breathing at the time of my visit. Due to the acuity of his condition I was unable to discuss CODE STATUS or wishes given that the patient is having hard time his breathing. I have provided reassurance and explained the plan of care in detail, patient will be admitted to the intensive care unit for Vapotherm therapy and other supportive measures for suspected coronavirus infection. Testing has been sent, lab work has been reviewed imaging studies reviewed as well General Adult EDM: Chief Complaint: SHORTNESS OF BREATH HPI: HPI: Patient is a 65 year old AA male who presents to the emergency department via EMS today with complaints of shortness of breath that has been worsening over the last 4 days. Patient reports that the shortness of breath increases with e xertion, he reports chest congestion. Patient denies any fever, sore throat, cough, body aches, fatigue, nausea, vomiting, diarrhea, abdominal pain, headache, or ear pain. He denies any known exposure to COVID-19. Patient reports that he lives at home with his and she works at [employer]. He currently denies any pain. Past Medical History Cardiovascular: HTN, Hyperlipidemia, Other Pulmonary: COPD CENTRAL NERVOUS SYSTEM: Other GI: GI bleed Heme/Onc: Other Hepatobiliary: No pertinent hx Psych: No pertinent hx Rheumatologic: No pertinent hx Infectious disease: No pertinent hx Renal/: No pertinent hx Endocrine: No pertinent hx Past Surgical History Past Surgical History: Other Family History Family History: Diabetes Social History Smoke: No ALCOHOL: none Drugs: None Current Problem List Problem List Problems Medical Problems: (1) COPD with acute exacerbation Status: Acute (2) Hyponatremia Status: Acute (3) Person under investigation for COVID-19 Status: Acute Current Medications Current Medications Current Medications Medications (Trade) Dose Ordered Sig/Hailee Start Time Stop Time Status Last Admin Dose Admin Acetaminophen (Tylenol) 650 mg PRN Q4HRS PRN 04/18/20 15:30 Al Hydroxide/Mg Hydroxide (Mylanta Plus Xs) 30 ml PRN DAILY PRN 04/18/20 15:30 Albuterol Sulfate (Ventolin Neb Soln) 2.5 mg PRN Q4HRS PRN 04/18/20 15:45 UNV Albuterol/ Ipratropium (Duoneb) 3 ml RTQID 04/18/20 16:00 Amlodipine Besylate (Norvasc) 10 mg DAILY 04/19/20 09:00 Ascorbic Acid (Vitamin C) 500 mg Q6H 04/18/20 18:15 04/18/20 19:45 500 MG Aspirin (Aspirin Chewable) 81 mg DAILY 04/19/20 09:00 Atorvastatin Calcium (Lipitor) 40 mg QHS 04/18/20 21:00 04/18/20 21:12 40 MG Atropine Sulfate (ATROPINE 0.5mg SYRINGE) 0.5 mg PRN Q5MIN PRN 04/18/20 18:45 Azithromycin 500 mg/Sodium Chloride 250 ml @ 250 mls/hr DAILY 04/18/20 18:30 04/22/20 08:59 04/18/20 19:47 250 MLS/HR Budesonide (Pulmicort) 0.5 mg RTBID 04/18/20 20:00 Dexmedetomidine HCl 400 mcg/ Sodium Chloride 100 ml @ 0 mls/hr CONT PRN 04/18/20 18:45 04/18/20 20:23 3.9 MLS/HR Docusate Sodium (Colace) 100 mg PRN BID PRN 04/18/20 15:30 Enoxaparin Sodium (Lovenox 40mg Syringe) 40 mg Q24H 04/18/20 21:00 04/18/20 21:13 40 MG Guaifenesin (Robitussin) 200 mg PRN Q4HRS PRN 04/18/20 15:30 Levofloxacin/ Dextrose 100 ml @ 100 mls/hr Q24H 04/18/20 16:00 04/18/20 18:12 DC Lorazepam (Ativan) 0.5 mg PRN Q4HRS PRN 04/18/20 15:30 Magnesium Sulfate 100 ml @ 25 mls/hr 1X ONCE 04/18/20 19:00 04/18/20 22:59 04/18/20 19:47 25 MLS/HR Magnesium Sulfate/ Dextrose 100 ml @ 100 mls/hr 1X ONCE 04/18/20 15:30 04/18/20 16:29 DC 04/18/20 16:00 100 MLS/HR Methylprednisolone Sodium Succinate (SOLU-Medrol 40MG VIAL) 40 mg Q12HR 04/18/20 21:00 04/18/20 21:12 40 MG Methylprednisolone Sodium Succinate (SOLU-Medrol 125MG VIAL) 125 mg 1X ONCE 04/18/20 13:30 04/18/20 13:33 DC 04/18/20 13:30 125 MG Metoprolol Succinate (Toprol Xl) 25 mg DAILY 04/19/20 09:00 Montelukast Sodium (Singulair) 10 mg HS 04/18/20 21:00 04/18/20 21:12 10 MG Ondansetron HCl (Zofran) 4 mg PRN Q4HRS PRN 04/18/20 15:30 Pantoprazole Sodium (Protonix) 40 mg DAILYAC 04/19/20 07:30 Sodium Chloride 500 ml @ 500 mls/hr 1X PRN PRN 04/18/20 18:45 Sterile Water (WATER for RESP) 1,000 ml CONT PRN 04/18/20 18:15 04/18/20 18:42 1,000 ML Thiamine HCl 200 mg/Dextrose 52 ml @ 102 mls/hr Q12H 04/18/20 19:00 04/18/20 19:46 102 MLS/HR Vitamin D (Vitamin D3) 1,000 unit BID 04/18/20 21:00 04/18/20 21:12 1,000 UNIT Zinc Sulfate (Orazinc) 220 mg DAILY 04/19/20 09:00 Zolpidem Tartrate (Ambien) 5 mg PRN QHS PRN 04/18/20 15:30 Allergies Allergies Allergies Coded Allergies Type Severity Reaction Last Updated Verified Penicillins Allergy Intermediate rash 11/15/14 Yes ROS Review of System Unable to assess due to acuity of his illness Physical Exam Physical Exam GEN.: Severe respiratory distress chronically ill-appearing HEENT: Head is normocephalic, atraumatic NECK: Supple. LUNGS: Coarse breath sounds bilaterally HEART: RRR, S1, S2 present. Tachycardic peripheral pulses intact ABDOMEN: Soft, nontender. Positive bowel sounds. EXTREMITIES: Without any cyanosis. NEUROLOGIC: Cranial nerves II to XII seem to be intact no motor or sensory deficits appreciated PSYCHIATRIC: Unable to assess due to the acuity of his illness SKIN: No ulcerations Vitals Vitals Vital Signs Date Time Temp Pulse Resp B/P (MAP) Pulse Ox O2 Delivery O2 Flow Rate FiO2 04/18/20 20:00 100 Vapotherm 40.0 04/18/20 18:35 99.0 27 212/116 (148) 99.0 04/18/20 18:20 118 Labs Labs Laboratory Tests Test 04/18/20 13:40 04/18/20 13:49 04/18/20 16:22 White Blood Count 12.2 x10^3/uL (4.0-11.0) Red Blood Count 5.25 x10^6/uL (4.30-5.70) Hemoglobin 15.3 g/dL (13.0-17.5) Hematocrit 45.6 % (39.0-53.0) Mean Corpuscular Volume 87 fL (79-100) Mean Corpuscular Hemoglobin 29 pg (25-35) Mean Corpuscular Hemoglobin Concent 34 g/dL (31-37) Red Cell Distribution Width 14.2 % (11.5-14.5) Platelet Count 429 x10^3/uL (140-400) Neutrophils (%) (Auto) 78 % (31-73) Lymphocytes (%) (Auto) 10 % (24-48) Monocytes (%) (Auto) 7 % (0-9) Eosinophils (%) (Auto) 5 % (0-3) Basophils (%) (Auto) 1 % (0-3) Neutrophils # (Auto) 9.5 x10^3/uL (1.8-7.7) Lymphocytes # (Auto) 1.2 x10^3/uL (1.0-4.8) Monocytes # (Auto) 0.9 x10^3/uL (0.0-1.1) Eosinophils # (Auto) 0.6 x10^3/uL (0.0-0.7) Basophils # (Auto) 0.1 x10^3/uL (0.0-0.2) Prothrombin Time 12.7 SEC (11.7-14.0) Prothromb Time International Ratio 1.0 (0.8-1.1) Activated Partial Thromboplast Time 27 SEC (24-38) Sodium Level 120 mmol/L (136-145) Potassium Level 3.8 mmol/L (3.5-5.1) Chloride Level 81 mmol/L (98-107) Carbon Dioxide Level 28 mmol/L (21-32) Anion Gap 11 (6-14) Blood Urea Nitrogen 10 mg/dL (8-26) Creatinine 1.0 mg/dL (0.7-1.3) Estimated GFR (Cockcroft-Gault) 90.7 BUN/Creatinine Ratio 10 (6-20) Glucose Level 174 mg/dL (70-99) Calcium Level 9.3 mg/dL (8.5-10.1) Magnesium Level 1.3 mg/dL (1.8-2.4) Total Bilirubin 0.8 mg/dL (0.2-1.0) Aspartate Amino Transf (AST/SGOT) 60 U/L (15-37) Alanine Aminotransferase (ALT/SGPT) 84 U/L (16-63) Alkaline Phosphatase 67 U/L (46-116) Creatine Kinase 469 U/L (39-308) Creatine Kinase MB (Mass) 14.4 ng/mL (0.0-3.6) Creatine Kinase MB Relative Index 3.1 % (0-4) Troponin I Quantitative < 0.017 ng/mL (0.000-0.055) DK-Beb-L-Type Natriuretic Peptide 142 pg/mL (0-124) Total Protein 8.5 g/dL (6.4-8.2) Albumin 4.6 g/dL (3.4-5.0) Albumin/Globulin Ratio 1.2 (1.0-1.7) O2 Saturation 96 % (92-99) 99 % (92-99) Arterial Blood pH 7.42 (7.35-7.45) 7.35 (7.35-7.45) Arterial Blood pCO2 at Patient Temp 37 mmHg (35-46) 46 mmHg (35-46) Arterial Blood pO2 at Patient Temp 86 mmHg (65-108) 167 mmHg (65-108) Arterial Blood HCO3 24 mmol/L (21-28) 25 mmol/L (21-28) Arterial Blood Base Excess -1 mmol/L (-3-3) -1 mmol/L (-3-3) Oxyhemoglobin 94.9 % 98.1 % Methemoglobin 0.5 % (0.0-1.9) 0.5 % (0.0-1.9) Carbon Monoxide, Quantitative 0.4 % (0.0-1.9) 0.4 % (0.0-1.9) FiO2 36 100 Laboratory Tests Test 04/18/20 13:40 04/18/20 13:49 04/18/20 16:22 White Blood Count 12.2 x10^3/uL (4.0-11.0) Red Blood Count 5.25 x10^6/uL (4.30-5.70) Hemoglobin 15.3 g/dL (13.0-17.5) Hematocrit 45.6 % (39.0-53.0) Mean Corpuscular Volume 87 fL (79-100) Mean Corpuscular Hemoglobin 29 pg (25-35) Mean Corpuscular Hemoglobin Concent 34 g/dL (31-37) Red Cell Distribution Width 14.2 % (11.5-14.5) Platelet Count 429 x10^3/uL (140-400) Neutrophils (%) (Auto) 78 % (31-73) Lymphocytes (%) (Auto) 10 % (24-48) Monocytes (%) (Auto) 7 % (0-9) Eosinophils (%) (Auto) 5 % (0-3) Basophils (%) (Auto) 1 % (0-3) Neutrophils # (Auto) 9.5 x10^3/uL (1.8-7.7) Lymphocytes # (Auto) 1.2 x10^3/uL (1.0-4.8) Monocytes # (Auto) 0.9 x10^3/uL (0.0-1.1) Eosinophils # (Auto) 0.6 x10^3/uL (0.0-0.7) Basophils # (Auto) 0.1 x10^3/uL (0.0-0.2) Prothrombin Time 12.7 SEC (11.7-14.0) Prothromb Time International Ratio 1.0 (0.8-1.1) Activated Partial Thromboplast Time 27 SEC (24-38) Sodium Level 120 mmol/L (136-145) Potassium Level 3.8 mmol/L (3.5-5.1) Chloride Level 81 mmol/L (98-107) Carbon Dioxide Level 28 mmol/L (21-32) Anion Gap 11 (6-14) Blood Urea Nitrogen 10 mg/dL (8-26) Creatinine 1.0 mg/dL (0.7-1.3) Estimated GFR (Cockcroft-Gault) 90.7 BUN/Creatinine Ratio 10 (6-20) Glucose Level 174 mg/dL (70-99) Calcium Level 9.3 mg/dL (8.5-10.1) Magnesium Level 1.3 mg/dL (1.8-2.4) Total Bilirubin 0.8 mg/dL (0.2-1.0) Aspartate Amino Transf (AST/SGOT) 60 U/L (15-37) Alanine Aminotransferase (ALT/SGPT) 84 U/L (16-63) Alkaline Phosphatase 67 U/L (46-116) Creatine Kinase 469 U/L (39-308) Creatine Kinase MB (Mass) 14.4 ng/mL (0.0-3.6) Creatine Kinase MB Relative Index 3.1 % (0-4) Troponin I Quantitative < 0.017 ng/mL (0.000-0.055) YU-Pvz-A-Type Natriuretic Peptide 142 pg/mL (0-124) Total Protein 8.5 g/dL (6.4-8.2) Albumin 4.6 g/dL (3.4-5.0) Albumin/Globulin Ratio 1.2 (1.0-1.7) O2 Saturation 96 % (92-99) 99 % (92-99) Arterial Blood pH 7.42 (7.35-7.45) 7.35 (7.35-7.45) Arterial Blood pCO2 at Patient Temp 37 mmHg (35-46) 46 mmHg (35-46) Arterial Blood pO2 at Patient Temp 86 mmHg (65-108) 167 mmHg (65-108) Arterial Blood HCO3 24 mmol/L (21-28) 25 mmol/L (21-28) Arterial Blood Base Excess -1 mmol/L (-3-3) -1 mmol/L (-3-3) Oxyhemoglobin 94.9 % 98.1 % Methemoglobin 0.5 % (0.0-1.9) 0.5 % (0.0-1.9) Carbon Monoxide, Quantitative 0.4 % (0.0-1.9) 0.4 % (0.0-1.9) FiO2 36 100 VTE Prophylaxis Ordered VTE Prophylaxis Devices: Yes VTE Pharmacological Prophylaxi: Yes Assessment/Plan Assessment/Plan Acute hypoxemic respiratory failure COVID-19 infection person under investigation Severe hyponatremia Contraction alkalosis Hyperglycemia Asthma, COPD, Diabetes-Type II Hypomagnesemia Plan Follow results of COVID-19 testing Supportive measures Vapotherm Vitamin C vitamin D and zinc Lovenox Famotidine Statin therapy Empiric antibiotics DVT prophylaxis with Lovenox TJ PATE MD Apr 18, 2020 22:13
[2020-04-19] VITALS (14 sets, daily range): BP systolic 110–178; BP diastolic 68–110
[2020-04-19] MEDS: ASCORBIC ACID 500 MG TABLET PO SCH ×4 (00:25→17:48)
[2020-04-19] MEDS: STERILE WATER for RESP 1,000 ML BAG. INH PRN (00:33)
[2020-04-19] MEDS: DEXMEDETOMIDINE 400 MCG in IV NORMAL SALINE 100ML 96 ML IV PRN (05:32)
[2020-04-19 07:53] LABS: BASO % 0 % (0-3); EOS % 0 % (0-3); HEMATOCRIT 42.7 % (39.0-53.0); HEMOGLOBIN 14.6 g/dL (13.0-17.5); LYMPH # 0.8 x10^3/uL (1.0-4.8); LYMPH % 7 % (24-48); MEAN CORPUSCULAR HEMOGLOBIN 30 pg (25-35); MEAN CORPUSCULAR HGB CONC 34 g/dL (31-37); MEAN CORPUSCULAR VOLUME 87 fL (79-100); MONO # 0.4 x10^3/uL (0.0-1.1); MONO % 3 % (0-9); NEUT # 9.9 x10^3/uL (1.8-7.7); NEUT % 89 % (31-73); PLATELET COUNT 358 x10^3/uL (140-400); RED CELL DISTRIBUTION WIDTH 14.2 % (11.5-14.5); WHITE BLOOD COUNT 11.1 x10^3/uL (4.0-11.0)
[2020-04-19] MEDS: IPRATRPIUM/ALBUTEROL 0.5/2.5MG 3 ML NEBU. NEB SCH ×4 (07:54→20:06)
[2020-04-19] MEDS: BUDESONIDE 0.5 MG/2 ML NEBU. NEB SCH ×2 (07:54→18:05)
[2020-04-19] MEDS: THIAMINE INJ 200 MG in IV DEXTROSE 5% 50 ML IV SCH ×2 (07:55→19:00)
[2020-04-19] MEDS: methylPREDNISolone SOD SUCC PF 40 MG/ML VIAL. IV SCH ×3 (07:56→19:00)
[2020-04-19] MEDS: PANTOPRAZOLE 40 MG TABLET.DR. PO SCH (07:56)
[2020-04-19] MEDS: CHOLECALCIFEROL (VITAMIN D3) 1,000 UNIT TABLET PO SCH ×2 (07:56→20:51)
[2020-04-19] MEDS: ZINC SULFATE 220 MG CAPSULE. PO SCH (07:56)
[2020-04-19] MEDS: AZITHROMYCIN 500 MG in IV NORMAL SALINE 250ML 250 ML IV SCH (07:56)
[2020-04-19] MEDS: METOPROLOL SUCC 24HR ER 25 MG TAB.ER.24H. PO SCH (07:57)
[2020-04-19] MEDS: ASPIRIN CHEWABLE 81 MG TABLET. PO SCH (07:57)
[2020-04-19] MEDS: amLODIPine BESYLATE 10 MG TABLET PO SCH (07:58)
[2020-04-19 08:02] LABS: CALCIUM 8.2 mg/dL (8.5-10.1); CREATININE 0.9 mg/dL (0.7-1.3); GFR 102.5; MAGNESIUM 2.6 mg/dL (1.8-2.4)
--- NOTE | 2020-04-19 08:16 | PDOC ---
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 Vitamin C vitamin D and zinc Lovenox Famotidine Statin therapy Empiric antibiotics DVT prophylaxis with Lovenox History of Present Illness History of Present Illness No acute events reported overnight, case discussed with nursing staff patient in no acute distress no complaints during my visit Vitals Vitals Vital Signs Date Time Temp Pulse Resp B/P (MAP) Pulse Ox O2 Delivery O2 Flow Rate FiO2 04/19/20 07:58 90 157/95 04/19/20 07:55 100 Vapotherm 10.0 04/19/20 06:00 13 04/19/20 04:00 97.9 97.9 Physical Exam Lungs: Wheezing Labs LABS Laboratory Tests Test 04/18/20 13:40 04/18/20 13:49 04/18/20 16:22 04/19/20 07:05 White Blood Count 12.2 x10^3/uL (4.0-11.0) Red Blood Count 5.25 x10^6/uL (4.30-5.70) Hemoglobin 15.3 g/dL (13.0-17.5) Hematocrit 45.6 % (39.0-53.0) Mean Corpuscular Volume 87 fL (79-100) Mean Corpuscular Hemoglobin 29 pg (25-35) Mean Corpuscular Hemoglobin Concent 34 g/dL (31-37) Red Cell Distribution Width 14.2 % (11.5-14.5) Platelet Count 429 x10^3/uL (140-400) Neutrophils (%) (Auto) 78 % (31-73) Lymphocytes (%) (Auto) 10 % (24-48) Monocytes (%) (Auto) 7 % (0-9) Eosinophils (%) (Auto) 5 % (0-3) Basophils (%) (Auto) 1 % (0-3) Neutrophils # (Auto) 9.5 x10^3/uL (1.8-7.7) Lymphocytes # (Auto) 1.2 x10^3/uL (1.0-4.8) Monocytes # (Auto) 0.9 x10^3/uL (0.0-1.1) Eosinophils # (Auto) 0.6 x10^3/uL (0.0-0.7) Basophils # (Auto) 0.1 x10^3/uL (0.0-0.2) Prothrombin Time 12.7 SEC (11.7-14.0) Prothromb Time International Ratio 1.0 (0.8-1.1) Activated Partial Thromboplast Time 27 SEC (24-38) Sodium Level 120 mmol/L (136-145) 122 mmol/L (136-145) Potassium Level 3.8 mmol/L (3.5-5.1) 4.0 mmol/L (3.5-5.1) Chloride Level 81 mmol/L (98-107) 85 mmol/L (98-107) Carbon Dioxide Level 28 mmol/L (21-32) 30 mmol/L (21-32) Anion Gap 11 (6-14) 7 (6-14) Blood Urea Nitrogen 10 mg/dL (8-26) 11 mg/dL (8-26) Creatinine 1.0 mg/dL (0.7-1.3) 0.9 mg/dL (0.7-1.3) Estimated GFR (Cockcroft-Gault) 90.7 102.5 BUN/Creatinine Ratio 10 (6-20) Glucose Level 174 mg/dL (70-99) 171 mg/dL (70-99) Calcium Level 9.3 mg/dL (8.5-10.1) 8.2 mg/dL (8.5-10.1) Magnesium Level 1.3 mg/dL (1.8-2.4) 2.6 mg/dL (1.8-2.4) Total Bilirubin 0.8 mg/dL (0.2-1.0) Aspartate Amino Transf (AST/SGOT) 60 U/L (15-37) Alanine Aminotransferase (ALT/SGPT) 84 U/L (16-63) Alkaline Phosphatase 67 U/L (46-116) Creatine Kinase 469 U/L (39-308) Creatine Kinase MB (Mass) 14.4 ng/mL (0.0-3.6) Creatine Kinase MB Relative Index 3.1 % (0-4) Troponin I Quantitative < 0.017 ng/mL (0.000-0.055) XD-Qyf-M-Type Natriuretic Peptide 142 pg/mL (0-124) Total Protein 8.5 g/dL (6.4-8.2) Albumin 4.6 g/dL (3.4-5.0) Albumin/Globulin Ratio 1.2 (1.0-1.7) O2 Saturation 96 % (92-99) 99 % (92-99) Arterial Blood pH 7.42 (7.35-7.45) 7.35 (7.35-7.45) Arterial Blood pCO2 at Patient Temp 37 mmHg (35-46) 46 mmHg (35-46) Arterial Blood pO2 at Patient Temp 86 mmHg (65-108) 167 mmHg (65-108) Arterial Blood HCO3 24 mmol/L (21-28) 25 mmol/L (21-28) Arterial Blood Base Excess -1 mmol/L (-3-3) -1 mmol/L (-3-3) Oxyhemoglobin 94.9 % 98.1 % Methemoglobin 0.5 % (0.0-1.9) 0.5 % (0.0-1.9) Carbon Monoxide, Quantitative 0.4 % (0.0-1.9) 0.4 % (0.0-1.9) FiO2 36 100 Assessment and Plan Assessmemt and Plan Problems Medical Problems: (1) COPD with acute exacerbation Status: Acute (2) Hyponatremia Status: Acute (3) Person under investigation for COVID-19 Status: Acute Comment Review of Relevant I have reviewed the following items arya (where applicable) has been applied. Labs Laboratory Tests Test 04/18/20 13:40 04/18/20 13:49 04/18/20 16:22 04/19/20 07:05 White Blood Count 12.2 x10^3/uL (4.0-11.0) Red Blood Count 5.25 x10^6/uL (4.30-5.70) Hemoglobin 15.3 g/dL (13.0-17.5) Hematocrit 45.6 % (39.0-53.0) Mean Corpuscular Volume 87 fL (79-100) Mean Corpuscular Hemoglobin 29 pg (25-35) Mean Corpuscular Hemoglobin Concent 34 g/dL (31-37) Red Cell Distribution Width 14.2 % (11.5-14.5) Platelet Count 429 x10^3/uL (140-400) Neutrophils (%) (Auto) 78 % (31-73) Lymphocytes (%) (Auto) 10 % (24-48) Monocytes (%) (Auto) 7 % (0-9) Eosinophils (%) (Auto) 5 % (0-3) Basophils (%) (Auto) 1 % (0-3) Neutrophils # (Auto) 9.5 x10^3/uL (1.8-7.7) Lymphocytes # (Auto) 1.2 x10^3/uL (1.0-4.8) Monocytes # (Auto) 0.9 x10^3/uL (0.0-1.1) Eosinophils # (Auto) 0.6 x10^3/uL (0.0-0.7) Basophils # (Auto) 0.1 x10^3/uL (0.0-0.2) Prothrombin Time 12.7 SEC (11.7-14.0) Prothromb Time International Ratio 1.0 (0.8-1.1) Activated Partial Thromboplast Time 27 SEC (24-38) Sodium Level 120 mmol/L (136-145) 122 mmol/L (136-145) Potassium Level 3.8 mmol/L (3.5-5.1) 4.0 mmol/L (3.5-5.1) Chloride Level 81 mmol/L (98-107) 85 mmol/L (98-107) Carbon Dioxide Level 28 mmol/L (21-32) 30 mmol/L (21-32) Anion Gap 11 (6-14) 7 (6-14) Blood Urea Nitrogen 10 mg/dL (8-26) 11 mg/dL (8-26) Creatinine 1.0 mg/dL (0.7-1.3) 0.9 mg/dL (0.7-1.3) Estimated GFR (Cockcroft-Gault) 90.7 102.5 BUN/Creatinine Ratio 10 (6-20) Glucose Level 174 mg/dL (70-99) 171 mg/dL (70-99) Calcium Level 9.3 mg/dL (8.5-10.1) 8.2 mg/dL (8.5-10.1) Magnesium Level 1.3 mg/dL (1.8-2.4) 2.6 mg/dL (1.8-2.4) Total Bilirubin 0.8 mg/dL (0.2-1.0) Aspartate Amino Transf (AST/SGOT) 60 U/L (15-37) Alanine Aminotransferase (ALT/SGPT) 84 U/L (16-63) Alkaline Phosphatase 67 U/L (46-116) Creatine Kinase 469 U/L (39-308) Creatine Kinase MB (Mass) 14.4 ng/mL (0.0-3.6) Creatine Kinase MB Relative Index 3.1 % (0-4) Troponin I Quantitative < 0.017 ng/mL (0.000-0.055) UP-Rhz-G-Type Natriuretic Peptide 142 pg/mL (0-124) Total Protein 8.5 g/dL (6.4-8.2) Albumin 4.6 g/dL (3.4-5.0) Albumin/Globulin Ratio 1.2 (1.0-1.7) O2 Saturation 96 % (92-99) 99 % (92-99) Arterial Blood pH 7.42 (7.35-7.45) 7.35 (7.35-7.45) Arterial Blood pCO2 at Patient Temp 37 mmHg (35-46) 46 mmHg (35-46) Arterial Blood pO2 at Patient Temp 86 mmHg (65-108) 167 mmHg (65-108) Arterial Blood HCO3 24 mmol/L (21-28) 25 mmol/L (21-28) Arterial Blood Base Excess -1 mmol/L (-3-3) -1 mmol/L (-3-3) Oxyhemoglobin 94.9 % 98.1 % Methemoglobin 0.5 % (0.0-1.9) 0.5 % (0.0-1.9) Carbon Monoxide, Quantitative 0.4 % (0.0-1.9) 0.4 % (0.0-1.9) FiO2 36 100 Laboratory Tests Test 04/18/20 13:40 04/18/20 13:49 04/18/20 16:22 04/19/20 07:05 White Blood Count 12.2 x10^3/uL (4.0-11.0) Red Blood Count 5.25 x10^6/uL (4.30-5.70) Hemoglobin 15.3 g/dL (13.0-17.5) Hematocrit 45.6 % (39.0-53.0) Mean Corpuscular Volume 87 fL (79-100) Mean Corpuscular Hemoglobin 29 pg (25-35) Mean Corpuscular Hemoglobin Concent 34 g/dL (31-37) Red Cell Distribution Width 14.2 % (11.5-14.5) Platelet Count 429 x10^3/uL (140-400) Neutrophils (%) (Auto) 78 % (31-73) Lymphocytes (%) (Auto) 10 % (24-48) Monocytes (%) (Auto) 7 % (0-9) Eosinophils (%) (Auto) 5 % (0-3) Basophils (%) (Auto) 1 % (0-3) Neutrophils # (Auto) 9.5 x10^3/uL (1.8-7.7) Lymphocytes # (Auto) 1.2 x10^3/uL (1.0-4.8) Monocytes # (Auto) 0.9 x10^3/uL (0.0-1.1) Eosinophils # (Auto) 0.6 x10^3/uL (0.0-0.7) Basophils # (Auto) 0.1 x10^3/uL (0.0-0.2) Prothrombin Time 12.7 SEC (11.7-14.0) Prothromb Time International Ratio 1.0 (0.8-1.1) Activated Partial Thromboplast Time 27 SEC (24-38) Sodium Level 120 mmol/L (136-145) 122 mmol/L (136-145) Potassium Level 3.8 mmol/L (3.5-5.1) 4.0 mmol/L (3.5-5.1) Chloride Level 81 mmol/L (98-107) 85 mmol/L (98-107) Carbon Dioxide Level 28 mmol/L (21-32) 30 mmol/L (21-32) Anion Gap 11 (6-14) 7 (6-14) Blood Urea Nitrogen 10 mg/dL (8-26) 11 mg/dL (8-26) Creatinine 1.0 mg/dL (0.7-1.3) 0.9 mg/dL (0.7-1.3) Estimated GFR (Cockcroft-Gault) 90.7 102.5 BUN/Creatinine Ratio 10 (6-20) Glucose Level 174 mg/dL (70-99) 171 mg/dL (70-99) Calcium Level 9.3 mg/dL (8.5-10.1) 8.2 mg/dL (8.5-10.1) Magnesium Level 1.3 mg/dL (1.8-2.4) 2.6 mg/dL (1.8-2.4) Total Bilirubin 0.8 mg/dL (0.2-1.0) Aspartate Amino Transf (AST/SGOT) 60 U/L (15-37) Alanine Aminotransferase (ALT/SGPT) 84 U/L (16-63) Alkaline Phosphatase 67 U/L (46-116) Creatine Kinase 469 U/L (39-308) Creatine Kinase MB (Mass) 14.4 ng/mL (0.0-3.6) Creatine Kinase MB Relative Index 3.1 % (0-4) Troponin I Quantitative < 0.017 ng/mL (0.000-0.055) EL-Trv-G-Type Natriuretic Peptide 142 pg/mL (0-124) Total Protein 8.5 g/dL (6.4-8.2) Albumin 4.6 g/dL (3.4-5.0) Albumin/Globulin Ratio 1.2 (1.0-1.7) O2 Saturation 96 % (92-99) 99 % (92-99) Arterial Blood pH 7.42 (7.35-7.45) 7.35 (7.35-7.45) Arterial Blood pCO2 at Patient Temp 37 mmHg (35-46) 46 mmHg (35-46) Arterial Blood pO2 at Patient Temp 86 mmHg (65-108) 167 mmHg (65-108) Arterial Blood HCO3 24 mmol/L (21-28) 25 mmol/L (21-28) Arterial Blood Base Excess -1 mmol/L (-3-3) -1 mmol/L (-3-3) Oxyhemoglobin 94.9 % 98.1 % Methemoglobin 0.5 % (0.0-1.9) 0.5 % (0.0-1.9) Carbon Monoxide, Quantitative 0.4 % (0.0-1.9) 0.4 % (0.0-1.9) FiO2 36 100 Medications Current Medications Albuterol Sulfate (Ventolin Neb Soln) 10 mg 1X ONCE CONT NEB Last administered on 04/18/20at 13:30; Start 04/18/20 at 13:30; Stop 04/18/20 at 13:33; Status DC Methylprednisolone Sodium Succinate (SOLU-Medrol 125MG VIAL) 125 mg 1X ONCE IV Last administered on 04/18/20at 13:30; Start 04/18/20 at 13:30; Stop 04/18/20 at 13:33; Status DC Sodium Chloride 1,000 ml @ 1,000 mls/hr 1X ONCE IV Last administered on 04/18/20at 16:00; Start 04/18/20 at 15:30; Stop 04/18/20 at 16:29; Status DC Magnesium Sulfate/ Dextrose 100 ml @ 100 mls/hr 1X ONCE IV Last administered on 04/18/20at 16:00; Start 04/18/20 at 15:30; Stop 04/18/20 at 16:29; Status DC Ondansetron HCl (Zofran) 4 mg PRN Q4HRS PRN IV NAUSEA/VOMITING; Start 04/18/20 at 15:30 Zolpidem Tartrate (Ambien) 5 mg PRN QHS PRN PO INSOMNIA; Start 04/18/20 at 15:30 Acetaminophen (Tylenol) 650 mg PRN Q4HRS PRN PO TEMP OVER 100.4F OR MILD PAIN; Start 04/18/20 at 15:30 Al Hydroxide/Mg Hydroxide (Mylanta Plus Xs) 30 ml PRN DAILY PRN PO HEARTBURN / GAS; Start 04/18/20 at 15:30 Docusate Sodium (Colace) 100 mg PRN BID PRN PO HARD STOOLS; Start 04/18/20 at 15:30 Albuterol Sulfate (Ventolin Neb Soln) 2.5 mg PRN Q4HRS PRN NEB SHORTNESS OF BREATH; Start 04/18/20 at 15:30 Guaifenesin (Robitussin) 200 mg PRN Q4HRS PRN PO COUGH; Start 04/18/20 at 15:30 Lorazepam (Ativan) 0.5 mg PRN Q4HRS PRN PO ANXIETY / AGITATION; Start 04/18/20 at 15:30 Enoxaparin Sodium (Lovenox 40mg Syringe) 40 mg Q24H SQ Last administered on 04/18/20at 21:13; Start 04/18/20 at 21:00 Levofloxacin/ Dextrose 100 ml @ 100 mls/hr Q24H IV ; Start 04/18/20 at 16:00; Stop 04/18/20 at 18:12; Status DC Amlodipine Besylate (Norvasc) 10 mg DAILY PO Last administered on 04/19/20at 07:58; Start 04/19/20 at 09:00 Aspirin (Aspirin Chewable) 81 mg DAILY PO Last administered on 04/19/20at 07:57; Start 04/19/20 at 09:00 Atorvastatin Calcium (Lipitor) 40 mg QHS PO Last administered on 04/18/20at 21:12; Start 04/18/20 at 21:00 Albuterol/ Ipratropium (Duoneb) 3 ml RTQID NEB Last administered on 04/19/20at 07:54; Start 04/18/20 at 16:00 Metoprolol Succinate (Toprol Xl) 25 mg DAILY PO Last administered on 04/19/20at 07:57; Start 04/19/20 at 09:00 Montelukast Sodium (Singulair) 10 mg HS PO Last administered on 04/18/20at 21:12; Start 04/18/20 at 21:00 Pantoprazole Sodium (Protonix) 40 mg DAILYAC PO Last administered on 04/19/20at 07:56; Start 04/19/20 at 07:30 Albuterol Sulfate (Ventolin Neb Soln) 2.5 mg PRN Q4HRS PRN NEB SHORTNESS OF BREATH; Start 04/18/20 at 15:45; Status UNV Budesonide (Pulmicort) 0.5 mg RTBID NEB Last administered on 04/19/20at 07:54; Start 04/18/20 at 20:00 Sodium Chloride 1,000 ml @ 100 mls/hr Q10H IV Last administered on 04/18/20at 19:45; Start 04/18/20 at 15:27; Stop 04/19/20 at 15:26 Sterile Water (WATER for RESP) 1,000 ml CONT PRN INH VIA VAPOTHERM DEVICE Last administered on 04/19/20at 00:33; Start 04/18/20 at 18:15 Azithromycin 500 mg/Sodium Chloride 250 ml @ 250 mls/hr DAILY IV Last administered on 04/19/20at 07:56; Start 04/18/20 at 18:30; Stop 04/22/20 at 08:59 Methylprednisolone Sodium Succinate (SOLU-Medrol 40MG VIAL) 80 mg 1X ONCE IV Last administered on 04/18/20at 19:45; Start 04/18/20 at 18:15; Stop 04/18/20 at 18:16; Status DC Methylprednisolone Sodium Succinate (SOLU-Medrol 40MG VIAL) 40 mg Q12HR IV Last administered on 04/19/20at 07:56; Start 04/18/20 at 21:00 Ascorbic Acid (Vitamin C) 500 mg Q6H PO Last administered on 04/19/20at 07:56; Start 04/18/20 at 18:15 Vitamin D (Vitamin D3) 1,000 unit BID PO Last administered on 04/19/20at 07:56; Start 04/18/20 at 21:00 Thiamine HCl 200 mg/Dextrose 52 ml @ 102 mls/hr Q12H IV Last administered on 04/19/20at 07:55; Start 04/18/20 at 19:00 Zinc Sulfate (Orazinc) 220 mg DAILY PO Last administered on 04/19/20at 07:56; Start 04/19/20 at 09:00 Dexmedetomidine HCl 400 mcg/ Sodium Chloride 100 ml @ 0 mls/hr CONT PRN IV SEE COMMENTS Last administered on 04/19/20at 05:32; Start 04/18/20 at 18:45 Sodium Chloride 500 ml @ 500 mls/hr 1X PRN PRN IV SEE COMMENTS; Start 04/18/20 at 18:45 Atropine Sulfate (ATROPINE 0.5mg SYRINGE) 0.5 mg PRN Q5MIN PRN IV SEE COMMENTS; Start 04/18/20 at 18:45 Magnesium Sulfate 100 ml @ 25 mls/hr 1X ONCE IV Last administered on 04/18/20at 19:47; Start 04/18/20 at 19:00; Stop 04/18/20 at 22:59; Status DC Active Scripts Active Metoprolol Succinate ( Xl ) (Metoprolol Succinate) 25 Mg Tab.er.24h 1 Tab PO DAILY Reported Metformin Hcl Er (Metformin Hcl) 500 Mg Tab.er.24h 500 Mg PO BIDWMEALS Prednisone (Prednisone) 10 Mg Tablet 30 Mg PO DAILY 5 Days Trelegy Ellipta 100-62.5-25 (Fluticasone/Umeclidin/Vilanter) 1 Each Blst.w.dev 1 Each IH PRN DAILY PRN Montelukast Sodium Tablet (Montelukast Sodium) 10 Mg Tablet 10 Mg PO HS Pantoprazole Sodium (Pantoprazole Sodium) 40 Mg Tablet.dr 40 Mg PO DAILYAC Ventolin Hfa Inhaler (Albuterol Sulfate) 18 Gm Hfa.aer.ad 2 Puff PO Q4HRS PRN Duoneb 0.5-3(2.5) Mg/3 Ml (Albuterol/Ipratropium) 3 Ml Ampul.neb 3 Ml NEB QID Amlodipine Besylate 10 Mg Tablet 10 Mg PO DAILY Aspirin 81 Mg Tab.chew 1 Tab PO DAILY Atorvastatin Calcium 40 Mg Tablet 1 Tab PO DAILY Vitals/I & O Vital Sign - Last 24 Hours 04/18/20 04/18/20 04/18/20 04/18/20 13:16 13:25 13:47 13:53 Temp 96.4 96.4 Pulse 130 126 120 Resp 34 35 33 B/P (MAP) 193/126 (148) 214/118 (150) 142/85 (104) Pulse Ox 98 99 98 98 O2 Delivery Nasal Cannula Nasal Cannula Nasal Cannula Nasal Cannula O2 Flow Rate 4.0 4.0 5.0 3.0 04/18/20 04/18/20 04/18/20 04/18/20 14:05 14:20 14:50 15:30 Pulse 116 116 112 112 Resp 31 28 32 33 B/P (MAP) 165/103 (123) 181/101 (127) 186/92 (123) 183/97 (125) Pulse Ox 99 98 O2 Delivery Nasal Cannula Nasal Cannula Nasal Cannula Nasal Cannula O2 Flow Rate 3.0 3.0 3.0 3.0 04/18/20 04/18/20 04/18/20 04/18/20 15:45 16:00 16:33 16:50 Pulse 112 114 120 Resp 28 33 31 B/P (MAP) 186/93 (124) 177/111 (133) Pulse Ox 97 O2 Delivery Nasal Cannula Nasal Cannula Vapotherm vapotherm O2 Flow Rate 3.0 3.0 30.0 30.0 04/18/20 04/18/20 04/18/20 04/18/20 17:20 17:50 18:20 18:35 Temp 99.0 99.0 Pulse 118 118 118 Resp 30 27 B/P (MAP) 177/101 (126) 159/101 (120) 181/106 (131) 212/116 (148) Pulse Ox 78 O2 Delivery vapotherm vapotherm vapotherm Vapotherm O2 Flow Rate 30.0 30.0 30.0 40.0 04/18/20 04/18/20 04/18/20 04/18/20 19:00 19:15 19:30 20:00 Pulse 118 116 116 Resp 27 B/P (MAP) 132/116 (121) 147/90 (109) 176/101 (126) Pulse Ox 100 100 100 O2 Delivery Vapotherm Vapotherm Vapotherm Nasal Cannula O2 Flow Rate 40.0 40.0 40.0 40.0 04/18/20 04/18/20 04/18/20 04/18/20 20:00 20:00 21:00 21:00 Temp 98.3 98.3 Pulse 120 114 Resp 27 B/P (MAP) 191/94 (126) 159/93 (115) Pulse Ox 100 100 100 100 O2 Delivery Vapotherm Vapotherm Vapotherm Vapotherm O2 Flow Rate 40.0 40.0 40.0 40.0 04/18/20 04/18/20 04/19/20 04/19/20 22:00 23:00 00:00 00:00 Temp 98.5 98.5 Pulse 107 88 100 Resp 23 13 17 B/P (MAP) 140/85 (103) 119/80 (93) 131/77 (95) Pulse Ox 100 100 100 O2 Delivery Vapotherm Vapotherm Vapotherm Nasal Cannula O2 Flow Rate 40.0 40.0 30.0 40.0 04/19/20 04/19/20 04/19/20 04/19/20 00:39 01:00 02:00 03:00 Pulse 83 81 70 Resp 14 13 13 B/P (MAP) 136/74 (94) 123/80 (94) 119/68 (85) Pulse Ox 100 100 100 100 O2 Delivery Vapotherm Vapotherm Vapotherm Vapotherm O2 Flow Rate 30.0 40.0 30.0 30.0 04/19/20 04/19/20 04/19/20 04/19/20 04:00 04:00 05:00 05:00 Temp 97.9 97.9 Pulse 80 77 Resp 13 13 B/P (MAP) 110/85 (93) 110/85 (93) Pulse Ox 100 100 100 O2 Delivery Vapotherm Nasal Cannula Vapotherm Vapotherm O2 Flow Rate 30.0 20.0 20.0 30.0 04/19/20 04/19/20 04/19/20 04/19/20 06:00 07:55 07:57 07:58 Pulse 99 90 90 Resp 13 B/P (MAP) 126/87 (100) 157/95 157/95 Pulse Ox 100 100 O2 Delivery Vapotherm Vapotherm O2 Flow Rate 20.0 10.0 Intake and Output 04/18/20 04/18/20 04/19/20 15:00 23:00 07:00 Intake Total 100 ml Output Total 550 ml Balance 100 ml -550 ml Justicifation of Admission Dx: Justifications for Admission: Justification of Admission Dx: Yes Acute COPD Exacerbation: Acute COPD Exacerbation TJ PATE MD Apr 19, 2020 08:16
[2020-04-19] MEDS: LACTOBACILLUS RHAMNOSUS GG 1 CAPSULE. PO SCH ×2 (09:00→20:51)
--- NOTE | 2020-04-19 09:06 | CONS ---
DATE OF CONSULTATION: 04/19/2020 PULMONARY CONSULTATION ATTENDING PHYSICIAN: Rajinder Abebe MD REASON FOR CONSULTATION: Respiratory failure. HISTORY OF PRESENT ILLNESS: The patient is a 65-year-old male, who has a history of COPD, type 2 diabetes. He was brought into the hospital with increasing shortness of breath and accessory muscle use. He had no obvious COVID-19 exposure. Denied any chest pains, headaches, nausea, vomiting or diarrhea as reported in the ER note. The patient was noted to be in respiratory distress in the ER and was placed on Vapotherm high flow cannula. The initial ABGs showed a pH of 7.42, pCO2 of 37, and a pO2 of 86 on 36% FiO2, then on 100% pO2 was 167. The patient did well overnight. He is now down to nasal cannula. He does not appear to be in any obvious respiratory distress. His blood pressure was on the high side. PAST MEDICAL HISTORY: Significant for history of COPD, bullous lung disease, hyperlipidemia, hypertension. PAST SURGICAL HISTORY: No recent surgeries. ALLERGIES: PENICILLIN. FAMILY HISTORY: Diabetes. SOCIAL HISTORY: Does not smoke at present. MEDICATIONS: Reviewed as listed in the MRAD, including IV steroids, Lovenox for DVT prophylaxis, and antibiotics. REVIEW OF SYSTEMS: Unable to obtain from the patient. PHYSICAL EXAMINATION: VITAL SIGNS: Reviewed. Blood pressure 178/127 on the high side. Pulse ox 100% on 6 liters. GENERAL: Visual exam done due to COVID-19 pandemia. He does not appear to be in any obvious respiratory distress, appears to be comfortable on nasal cannula at 6 liters. SKIN: No obvious skin rash. EXTREMITIES: No leg edema. LABORATORY DATA: Reviewed. Sodium is 122, potassium 4.0, bicarb 30, chloride 85. AST and ALT elevated. INR 1.0. White cell count 11.1, hemoglobin 14.6, and platelets 350. IMPRESSION: 1. Acute hypoxic respiratory failure secondary to acute exacerbation of chronic obstructive pulmonary disease. 2. 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 3. Hyponatremia, unclear etiology. He has hypochloremia as well. Would benefit from normal saline. 4. Abnormal liver function tests. RECOMMENDATIONS: 1. Continue with present nasal cannula. 2. We will obtain D-dimers and if high, consider doing venous Dopplers of lower extremities and further workup of his hypoxic respiratory failure. 3. Gradually wean FiO2 as tolerated to keep saturation 92 and above. 4. IV steroids. 5. Empiric antibiotics. 6. DVT prophylaxis. 7. Clinically improved since ER admission. We will benefit from outpatient PFTs and we will follow along with you. Discussed with RN and RT. CRITICAL CARE TIME: 35 minutes. GHANSHYAM LOMBARDI MD DR: JAYLA/tamia JOB#: [id number] / [id number]
[2020-04-19 10:03] LABS: BILIRUBIN,URINE NEGATIVE (NEG); CLARITY,URINE CLEAR; COLOR,URINE YELLOW; NITRITE,URINE NEGATIVE (NEG); PH,URINE 6.5 (<5.0-8.0); PROTEIN,URINE 30 mg/dL (NEG-TRACE); UROBILINOGEN,URINE 0.2 mg/dL (0.2 mg/dL)
[2020-04-19 10:11] LABS: % LYMPHS 6 % (24-48); % MONOS 4 % (0-10); % SEGS 90 % (35-66); PLT ESTIMATE ADEQUATE (ADEQUATE)
[2020-04-19] MEDS: guaiFENesin ORAL 200 MG/10 ML LIQUID. PO PRN ×2 (10:18→14:47)
[2020-04-19] MEDS: LORazepam 0.5 MG TABLET PO PRN ×2 (10:18→14:47)
[2020-04-19 10:35] LABS: BACTERIA,URINE 0 /HPF (0-FEW); SQUAMOUS EPITHELIAL CELL,UR FEW /LPF; WBC,URINE 0 /HPF (0-4)
--- NOTE | 2020-04-19 10:51 | PDOC2 ---
CONSULT Date of Consult Date of Consult DATE: 04/19/20 TIME: 10:38 Reason for Consult Reason for Consult: HypoNatremia Source Source: Chart review History of Present Illness Reason for Visit: Patient is a 65 year old AA male who presents to the emergency department via EMS with complaints of shortness of breath that has been worsening over the last 4 days. Patient reports that the shortness of breath increases with exertion, he reports chest congestion. Patient denies any fever, sore throat, cough, body aches, fatigue, nausea, vomiting, diarrhea, abdominal pain, headache, He denies any known exposure to COVID-19. Patient reports that he lives at home with his and she works at [employer]. He denies any urinary complaints . Past Medical History Cardiovascular: HTN, Hyperlipidemia, Other Pulmonary: COPD CENTRAL NERVOUS SYSTEM: Other GI: GI bleed Heme/Onc: Other Hepatobiliary: No pertinent hx Psych: No pertinent hx Musculoskeletal: Osteoarthritis Rheumatologic: No pertinent hx Infectious disease: No pertinent hx Renal/: No pertinent hx Endocrine: No pertinent hx Past Surgical History Past Surgical History: Other Family History Family History: Diabetes Social History No ALCOHOL: none Drugs: None Lives: with Family Current Problem List Problem List Problems Medical Problems: (1) COPD with acute exacerbation Status: Acute (2) Hyponatremia Status: Acute (3) Person under investigation for COVID-19 Status: Acute Current Medications Current Medications Current Medications Albuterol Sulfate (Ventolin Neb Soln) 10 mg 1X ONCE CONT NEB Last administered on 04/18/20at 13:30; Start 04/18/20 at 13:30; Stop 04/18/20 at 13:33; Status DC Methylprednisolone Sodium Succinate (SOLU-Medrol 125MG VIAL) 125 mg 1X ONCE IV Last administered on 04/18/20at 13:30; Start 04/18/20 at 13:30; Stop 04/18/20 at 13:33; Status DC Sodium Chloride 1,000 ml @ 1,000 mls/hr 1X ONCE IV Last administered on 04/18/20at 16:00; Start 04/18/20 at 15:30; Stop 04/18/20 at 16:29; Status DC Magnesium Sulfate/ Dextrose 100 ml @ 100 mls/hr 1X ONCE IV Last administered on 04/18/20at 16:00; Start 04/18/20 at 15:30; Stop 04/18/20 at 16:29; Status DC Ondansetron HCl (Zofran) 4 mg PRN Q4HRS PRN IV NAUSEA/VOMITING; Start 04/18/20 at 15:30 Zolpidem Tartrate (Ambien) 5 mg PRN QHS PRN PO INSOMNIA; Start 04/18/20 at 15:30 Acetaminophen (Tylenol) 650 mg PRN Q4HRS PRN PO TEMP OVER 100.4F OR MILD PAIN; Start 04/18/20 at 15:30 Al Hydroxide/Mg Hydroxide (Mylanta Plus Xs) 30 ml PRN DAILY PRN PO HEARTBURN / GAS; Start 04/18/20 at 15:30 Docusate Sodium (Colace) 100 mg PRN BID PRN PO HARD STOOLS; Start 04/18/20 at 15:30 Albuterol Sulfate (Ventolin Neb Soln) 2.5 mg PRN Q4HRS PRN NEB SHORTNESS OF BREATH; Start 04/18/20 at 15:30 Guaifenesin (Robitussin) 200 mg PRN Q4HRS PRN PO COUGH Last administered on 04/19/20at 10:18; Start 04/18/20 at 15:30 Lorazepam (Ativan) 0.5 mg PRN Q4HRS PRN PO ANXIETY / AGITATION Last administered on 04/19/20at 10:18; Start 04/18/20 at 15:30 Enoxaparin Sodium (Lovenox 40mg Syringe) 40 mg Q24H SQ Last administered on 04/18/20at 21:13; Start 04/18/20 at 21:00 Levofloxacin/ Dextrose 100 ml @ 100 mls/hr Q24H IV ; Start 04/18/20 at 16:00; Stop 04/18/20 at 18:12; Status DC Amlodipine Besylate (Norvasc) 10 mg DAILY PO Last administered on 04/19/20at 07:58; Start 04/19/20 at 09:00 Aspirin (Aspirin Chewable) 81 mg DAILY PO Last administered on 04/19/20at 07:57; Start 04/19/20 at 09:00 Atorvastatin Calcium (Lipitor) 40 mg QHS PO Last administered on 04/18/20at 21:12; Start 04/18/20 at 21:00 Albuterol/ Ipratropium (Duoneb) 3 ml RTQID NEB Last administered on 04/19/20at 07:54; Start 04/18/20 at 16:00 Metoprolol Succinate (Toprol Xl) 25 mg DAILY PO Last administered on 04/19/20at 07:57; Start 04/19/20 at 09:00 Montelukast Sodium (Singulair) 10 mg HS PO Last administered on 04/18/20at 21:12; Start 04/18/20 at 21:00 Pantoprazole Sodium (Protonix) 40 mg DAILYAC PO Last administered on 04/19/20at 07:56; Start 04/19/20 at 07:30 Albuterol Sulfate (Ventolin Neb Soln) 2.5 mg PRN Q4HRS PRN NEB SHORTNESS OF BREATH; Start 04/18/20 at 15:45; Status UNV Budesonide (Pulmicort) 0.5 mg RTBID NEB Last administered on 04/19/20at 07:54; Start 04/18/20 at 20:00 Sodium Chloride 1,000 ml @ 100 mls/hr Q10H IV Last administered on 04/18/20at 19:45; Start 04/18/20 at 15:27; Stop 04/19/20 at 15:26 Sterile Water (WATER for RESP) 1,000 ml CONT PRN INH VIA VAPOTHERM DEVICE Last administered on 04/19/20at 00:33; Start 04/18/20 at 18:15 Azithromycin 500 mg/Sodium Chloride 250 ml @ 250 mls/hr DAILY IV Last administered on 04/19/20at 07:56; Start 04/18/20 at 18:30; Stop 04/22/20 at 08:59 Methylprednisolone Sodium Succinate (SOLU-Medrol 40MG VIAL) 80 mg 1X ONCE IV Last administered on 04/18/20at 19:45; Start 04/18/20 at 18:15; Stop 04/18/20 at 18:16; Status DC Methylprednisolone Sodium Succinate (SOLU-Medrol 40MG VIAL) 40 mg Q12HR IV Last administered on 04/19/20at 07:56; Start 04/18/20 at 21:00 Ascorbic Acid (Vitamin C) 500 mg Q6H PO Last administered on 04/19/20at 07:56; Start 04/18/20 at 18:15 Vitamin D (Vitamin D3) 1,000 unit BID PO Last administered on 04/19/20at 07:56; Start 04/18/20 at 21:00 Thiamine HCl 200 mg/Dextrose 52 ml @ 102 mls/hr Q12H IV Last administered on 04/19/20at 07:55; Start 04/18/20 at 19:00 Zinc Sulfate (Orazinc) 220 mg DAILY PO Last administered on 04/19/20at 07:56; Start 04/19/20 at 09:00 Dexmedetomidine HCl 400 mcg/ Sodium Chloride 100 ml @ 0 mls/hr CONT PRN IV SEE COMMENTS Last administered on 04/19/20at 05:32; Start 04/18/20 at 18:45 Sodium Chloride 500 ml @ 500 mls/hr 1X PRN PRN IV SEE COMMENTS; Start 04/18/20 at 18:45 Atropine Sulfate (ATROPINE 0.5mg SYRINGE) 0.5 mg PRN Q5MIN PRN IV SEE COMMENTS; Start 04/18/20 at 18:45 Magnesium Sulfate 100 ml @ 25 mls/hr 1X ONCE IV Last administered on 04/18/20at 19:47; Start 04/18/20 at 19:00; Stop 04/18/20 at 22:59; Status DC Lactobacillus Rhamnosus (Culturelle) 1 cap BID PO Last administered on 04/19/20at 09:00; Start 04/19/20 at 09:00 Active Scripts Active Metoprolol Succinate ( Xl ) (Metoprolol Succinate) 25 Mg Tab.er.24h 1 Tab PO DAILY Reported Metformin Hcl Er (Metformin Hcl) 500 Mg Tab.er.24h 500 Mg PO BIDWMEALS Prednisone (Prednisone) 10 Mg Tablet 30 Mg PO DAILY 5 Days Trelegy Ellipta 100-62.5-25 (Fluticasone/Umeclidin/Vilanter) 1 Each Blst.w.dev 1 Each IH PRN DAILY PRN Montelukast Sodium Tablet (Montelukast Sodium) 10 Mg Tablet 10 Mg PO HS Pantoprazole Sodium (Pantoprazole Sodium) 40 Mg Tablet.dr 40 Mg PO DAILYAC Ventolin Hfa Inhaler (Albuterol Sulfate) 18 Gm Hfa.aer.ad 2 Puff PO Q4HRS PRN Duoneb 0.5-3(2.5) Mg/3 Ml (Albuterol/Ipratropium) 3 Ml Ampul.neb 3 Ml NEB QID Amlodipine Besylate 10 Mg Tablet 10 Mg PO DAILY Aspirin 81 Mg Tab.chew 1 Tab PO DAILY Atorvastatin Calcium 40 Mg Tablet 1 Tab PO DAILY Allergies Allergies: Coded Allergies: Penicillins (Verified Allergy, Intermediate, rash, 11/15/14) ROS Review of System As per HPI, rest of the ROS is negative Physical Exam Physical Exam GEN.: NAD , sitting up HEENT:OM dry NECK: Supple. LUNGS: Non labored, CTA HEART: S1, S2 present. ABDOMEN: Soft, nontender. Positive bowel sounds. EXTREMITIES: No cyanosis, edema NEUROLOGIC: grossly normal, agitated, confused SKIN: No rash No CVA or SP tenderness Vital Signs Vital Signs Date Time Temp Pulse Resp B/P (MAP) Pulse Ox O2 Delivery O2 Flow Rate FiO2 04/19/20 10:00 84 16 140/110 (120) 100 Nasal Cannula 4.0 04/19/20 08:00 98.5 98.5 Assessment & Plan HypoNatremia- Was hospitalized in December with Na 117(was on HCTZ) was resolved at ok Currently Na 122<-120 , Continue UVF, if no improvement will switch to 3% Asymptomatic , strict I/O , Monitor sodium if possible Hold PPI as well ,Renal function normal, Strict I/O Hypertension - Antihypertensives,Monitor BP COPD- On o2 Acute hypoxic respiratory failure secondary to acute exacerbation of chronic obstructive pulmonary disease. 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 COVID PUI Abnormal liver function tests. Quinton RN Labs Labs Laboratory Tests Test 04/18/20 13:40 04/18/20 13:49 04/18/20 16:22 04/19/20 07:05 White Blood Count 12.2 x10^3/uL (4.0-11.0) 11.1 x10^3/uL (4.0-11.0) Red Blood Count 5.25 x10^6/uL (4.30-5.70) 4.90 x10^6/uL (4.30-5.70) Hemoglobin 15.3 g/dL (13.0-17.5) 14.6 g/dL (13.0-17.5) Hematocrit 45.6 % (39.0-53.0) 42.7 % (39.0-53.0) Mean Corpuscular Volume 87 fL (79-100) 87 fL (79-100) Mean Corpuscular Hemoglobin 29 pg (25-35) 30 pg (25-35) Mean Corpuscular Hemoglobin Concent 34 g/dL (31-37) 34 g/dL (31-37) Red Cell Distribution Width 14.2 % (11.5-14.5) 14.2 % (11.5-14.5) Platelet Count 429 x10^3/uL (140-400) 358 x10^3/uL (140-400) Neutrophils (%) (Auto) 78 % (31-73) 89 % (31-73) Lymphocytes (%) (Auto) 10 % (24-48) 7 % (24-48) Monocytes (%) (Auto) 7 % (0-9) 3 % (0-9) Eosinophils (%) (Auto) 5 % (0-3) 0 % (0-3) Basophils (%) (Auto) 1 % (0-3) 0 % (0-3) Neutrophils # (Auto) 9.5 x10^3/uL (1.8-7.7) 9.9 x10^3/uL (1.8-7.7) Lymphocytes # (Auto) 1.2 x10^3/uL (1.0-4.8) 0.8 x10^3/uL (1.0-4.8) Monocytes # (Auto) 0.9 x10^3/uL (0.0-1.1) 0.4 x10^3/uL (0.0-1.1) Eosinophils # (Auto) 0.6 x10^3/uL (0.0-0.7) 0.0 x10^3/uL (0.0-0.7) Basophils # (Auto) 0.1 x10^3/uL (0.0-0.2) 0.0 x10^3/uL (0.0-0.2) Prothrombin Time 12.7 SEC (11.7-14.0) Prothromb Time International Ratio 1.0 (0.8-1.1) Activated Partial Thromboplast Time 27 SEC (24-38) Sodium Level 120 mmol/L (136-145) 122 mmol/L (136-145) Potassium Level 3.8 mmol/L (3.5-5.1) 4.0 mmol/L (3.5-5.1) Chloride Level 81 mmol/L (98-107) 85 mmol/L (98-107) Carbon Dioxide Level 28 mmol/L (21-32) 30 mmol/L (21-32) Anion Gap 11 (6-14) 7 (6-14) Blood Urea Nitrogen 10 mg/dL (8-26) 11 mg/dL (8-26) Creatinine 1.0 mg/dL (0.7-1.3) 0.9 mg/dL (0.7-1.3) Estimated GFR (Cockcroft-Gault) 90.7 102.5 BUN/Creatinine Ratio 10 (6-20) Glucose Level 174 mg/dL (70-99) 171 mg/dL (70-99) Calcium Level 9.3 mg/dL (8.5-10.1) 8.2 mg/dL (8.5-10.1) Magnesium Level 1.3 mg/dL (1.8-2.4) 2.6 mg/dL (1.8-2.4) Total Bilirubin 0.8 mg/dL (0.2-1.0) Aspartate Amino Transf (AST/SGOT) 60 U/L (15-37) Alanine Aminotransferase (ALT/SGPT) 84 U/L (16-63) Alkaline Phosphatase 67 U/L (46-116) Creatine Kinase 469 U/L (39-308) Creatine Kinase MB (Mass) 14.4 ng/mL (0.0-3.6) Creatine Kinase MB Relative Index 3.1 % (0-4) Troponin I Quantitative < 0.017 ng/mL (0.000-0.055) CG-Erh-S-Type Natriuretic Peptide 142 pg/mL (0-124) Total Protein 8.5 g/dL (6.4-8.2) Albumin 4.6 g/dL (3.4-5.0) Albumin/Globulin Ratio 1.2 (1.0-1.7) O2 Saturation 96 % (92-99) 99 % (92-99) Arterial Blood pH 7.42 (7.35-7.45) 7.35 (7.35-7.45) Arterial Blood pCO2 at Patient Temp 37 mmHg (35-46) 46 mmHg (35-46) Arterial Blood pO2 at Patient Temp 86 mmHg (65-108) 167 mmHg (65-108) Arterial Blood HCO3 24 mmol/L (21-28) 25 mmol/L (21-28) Arterial Blood Base Excess -1 mmol/L (-3-3) -1 mmol/L (-3-3) Oxyhemoglobin 94.9 % 98.1 % Methemoglobin 0.5 % (0.0-1.9) 0.5 % (0.0-1.9) Carbon Monoxide, Quantitative 0.4 % (0.0-1.9) 0.4 % (0.0-1.9) FiO2 36 100 Segmented Neutrophils % 90 % (35-66) Lymphocytes % 6 % (24-48) Monocytes % 4 % (0-10) Platelet Estimate Adequate (ADEQUATE) Thyroid Stimulating Hormone (TSH) 0.148 uIU/mL (0.358-3.74) Test 04/19/20 09:30 Urine Collection Type Unknown Urine Color Yellow Urine Clarity Clear Urine pH 6.5 (<5.0-8.0) Urine Specific [place] 1.010 (1.000-1.030) Urine Protein 30 mg/dL (NEG-TRACE) Urine Glucose (UA) 100 mg/dL (NEG) Urine Ketones (Stick) Trace mg/dL (NEG) Urine Blood Negative (NEG) Urine Nitrite Negative (NEG) Urine Bilirubin Negative (NEG) Urine Urobilinogen Dipstick 0.2 mg/dL (0.2 mg/dL) Urine Leukocyte Esterase Negative (NEG) Urine RBC 1-2 /HPF (0-2) Urine WBC 0 /HPF (0-4) Urine Squamous Epithelial Cells Few /LPF Urine Bacteria 0 /HPF (0-FEW) Laboratory Tests Test 04/18/20 13:40 04/18/20 13:49 04/18/20 16:22 04/19/20 07:05 White Blood Count 12.2 x10^3/uL (4.0-11.0) 11.1 x10^3/uL (4.0-11.0) Red Blood Count 5.25 x10^6/uL (4.30-5.70) 4.90 x10^6/uL (4.30-5.70) Hemoglobin 15.3 g/dL (13.0-17.5) 14.6 g/dL (13.0-17.5) Hematocrit 45.6 % (39.0-53.0) 42.7 % (39.0-53.0) Mean Corpuscular Volume 87 fL (79-100) 87 fL (79-100) Mean Corpuscular Hemoglobin 29 pg (25-35) 30 pg (25-35) Mean Corpuscular Hemoglobin Concent 34 g/dL (31-37) 34 g/dL (31-37) Red Cell Distribution Width 14.2 % (11.5-14.5) 14.2 % (11.5-14.5) Platelet Count 429 x10^3/uL (140-400) 358 x10^3/uL (140-400) Neutrophils (%) (Auto) 78 % (31-73) 89 % (31-73) Lymphocytes (%) (Auto) 10 % (24-48) 7 % (24-48) Monocytes (%) (Auto) 7 % (0-9) 3 % (0-9) Eosinophils (%) (Auto) 5 % (0-3) 0 % (0-3) Basophils (%) (Auto) 1 % (0-3) 0 % (0-3) Neutrophils # (Auto) 9.5 x10^3/uL (1.8-7.7) 9.9 x10^3/uL (1.8-7.7) Lymphocytes # (Auto) 1.2 x10^3/uL (1.0-4.8) 0.8 x10^3/uL (1.0-4.8) Monocytes # (Auto) 0.9 x10^3/uL (0.0-1.1) 0.4 x10^3/uL (0.0-1.1) Eosinophils # (Auto) 0.6 x10^3/uL (0.0-0.7) 0.0 x10^3/uL (0.0-0.7) Basophils # (Auto) 0.1 x10^3/uL (0.0-0.2) 0.0 x10^3/uL (0.0-0.2) Prothrombin Time 12.7 SEC (11.7-14.0) Prothromb Time International Ratio 1.0 (0.8-1.1) Activated Partial Thromboplast Time 27 SEC (24-38) Sodium Level 120 mmol/L (136-145) 122 mmol/L (136-145) Potassium Level 3.8 mmol/L (3.5-5.1) 4.0 mmol/L (3.5-5.1) Chloride Level 81 mmol/L (98-107) 85 mmol/L (98-107) Carbon Dioxide Level 28 mmol/L (21-32) 30 mmol/L (21-32) Anion Gap 11 (6-14) 7 (6-14) Blood Urea Nitrogen 10 mg/dL (8-26) 11 mg/dL (8-26) Creatinine 1.0 mg/dL (0.7-1.3) 0.9 mg/dL (0.7-1.3) Estimated GFR (Cockcroft-Gault) 90.7 102.5 BUN/Creatinine Ratio 10 (6-20) Glucose Level 174 mg/dL (70-99) 171 mg/dL (70-99) Calcium Level 9.3 mg/dL (8.5-10.1) 8.2 mg/dL (8.5-10.1) Magnesium Level 1.3 mg/dL (1.8-2.4) 2.6 mg/dL (1.8-2.4) Total Bilirubin 0.8 mg/dL (0.2-1.0) Aspartate Amino Transf (AST/SGOT) 60 U/L (15-37) Alanine Aminotransferase (ALT/SGPT) 84 U/L (16-63) Alkaline Phosphatase 67 U/L (46-116) Creatine Kinase 469 U/L (39-308) Creatine Kinase MB (Mass) 14.4 ng/mL (0.0-3.6) Creatine Kinase MB Relative Index 3.1 % (0-4) Troponin I Quantitative < 0.017 ng/mL (0.000-0.055) QX-Oyp-R-Type Natriuretic Peptide 142 pg/mL (0-124) Total Protein 8.5 g/dL (6.4-8.2) Albumin 4.6 g/dL (3.4-5.0) Albumin/Globulin Ratio 1.2 (1.0-1.7) O2 Saturation 96 % (92-99) 99 % (92-99) Arterial Blood pH 7.42 (7.35-7.45) 7.35 (7.35-7.45) Arterial Blood pCO2 at Patient Temp 37 mmHg (35-46) 46 mmHg (35-46) Arterial Blood pO2 at Patient Temp 86 mmHg (65-108) 167 mmHg (65-108) Arterial Blood HCO3 24 mmol/L (21-28) 25 mmol/L (21-28) Arterial Blood Base Excess -1 mmol/L (-3-3) -1 mmol/L (-3-3) Oxyhemoglobin 94.9 % 98.1 % Methemoglobin 0.5 % (0.0-1.9) 0.5 % (0.0-1.9) Carbon Monoxide, Quantitative 0.4 % (0.0-1.9) 0.4 % (0.0-1.9) FiO2 36 100 Segmented Neutrophils % 90 % (35-66) Lymphocytes % 6 % (24-48) Monocytes % 4 % (0-10) Platelet Estimate Adequate (ADEQUATE) Thyroid Stimulating Hormone (TSH) 0.148 uIU/mL (0.358-3.74) Test 04/19/20 09:30 Urine Collection Type Unknown Urine Color Yellow Urine Clarity Clear Urine pH 6.5 (<5.0-8.0) Urine Specific [place] 1.010 (1.000-1.030) Urine Protein 30 mg/dL (NEG-TRACE) Urine Glucose (UA) 100 mg/dL (NEG) Urine Ketones (Stick) Trace mg/dL (NEG) Urine Blood Negative (NEG) Urine Nitrite Negative (NEG) Urine Bilirubin Negative (NEG) Urine Urobilinogen Dipstick 0.2 mg/dL (0.2 mg/dL) Urine Leukocyte Esterase Negative (NEG) Urine RBC 1-2 /HPF (0-2) Urine WBC 0 /HPF (0-4) Urine Squamous Epithelial Cells Few /LPF Urine Bacteria 0 /HPF (0-FEW) Review All relevant outside records, renal labs, imaging studies, telemetry/EKG's were reviewed. Images Images IMPRESSION: No radiographic evidence of an acute cardiopulmonary process. DELBERT FERRERA MD Apr 19, 2020 10:51
[2020-04-19] MEDS: IV NORMAL SALINE 1000ML BAG 1,000 ML IV SCH ×2 (14:48→18:00)
[2020-04-19] MEDS: LORazepam 1 MG TABLET PO PRN ×2 (16:39→20:51)
[2020-04-19] MEDS ORDERED: DEXTROSE 50% 25 GM / 50ML DISP.SYRIN. IV PRN (17:00)
[2020-04-19] MEDS: INSULIN LISPRO 300 UNITS/3 ML VIAL. SQ SCH (18:07)
[2020-04-19] MEDS ORDERED: ALBUTEROL SULFATE 2.5 MG/3 ML NEBU. NEB PRN (18:30)
[2020-04-19] MEDS ORDERED: IPRATRPIUM/ALBUTEROL 0.5/2.5MG 3 ML NEBU. NEB SCH (20:00)
[2020-04-19] MEDS: MONTELUKAST SODIUM 10 MG TABLET. PO SCH (20:51)
[2020-04-19] MEDS: ATORVASTATIN CALCIUM 40 MG TABLET. PO SCH (20:51)
[2020-04-19] MEDS: ENOXAPARIN 40 MG/0.4 ML SYRINGE. SQ SCH (20:52)
[2020-04-20 00:01] VITALS: BP 172/97
[2020-04-20] MEDS: IPRATRPIUM/ALBUTEROL 0.5/2.5MG 3 ML NEBU. NEB SCH ×7 (00:04→19:34)
[2020-04-20] MEDS: methylPREDNISolone SOD SUCC PF 40 MG/ML VIAL. IV SCH ×5 (00:14→16:59)
[2020-04-20] MEDS: guaiFENesin ORAL 200 MG/10 ML LIQUID. PO PRN ×2 (01:21→11:21)
[2020-04-20] MEDS: ASCORBIC ACID 500 MG TABLET PO SCH ×4 (01:21→16:59)
[2020-04-20 04:00] VITALS: BP 172/85
[2020-04-20 05:41] LABS: CALCIUM 8.5 mg/dL (8.5-10.1); CREATININE 0.8 mg/dL (0.7-1.3); GFR 117.4; POTASSIUM 3.8 mmol/L (3.5-5.1)
[2020-04-20] MEDS: BUDESONIDE 0.5 MG/2 ML NEBU. NEB SCH ×2 (07:16→19:35)
--- NOTE | 2020-04-20 07:49 | RAD ---
CHEST AP ONLY Clinical indications: COPD exacerbation COMPARISON: April 18, 2020. Findings: No acute lung infiltrate or pleural effusion or pulmonary edema or lung mass or pneumothorax is seen. The heart size, pulmonary vasculature, mediastinum and both marina are unremarkable. Impression: No acute radiographic abnormality is seen. Electronically signed by: Osmar Peña MD (04/20/2020 7:47 AM) [id number]
[2020-04-20 08:00] VITALS: BP 166/104
--- NOTE | 2020-04-20 08:00 | NUR ---
Junior is anxious and tachypneic. Dr. Nelson is here and will rearrange his medications around. o2 on at 4 lnc. he has an audible wheeze and breath sounds are coarse inspiratory and expiratory.
[2020-04-20] MEDS: amLODIPine BESYLATE 10 MG TABLET PO SCH (08:05)
[2020-04-20] MEDS: ZINC SULFATE 220 MG CAPSULE. PO SCH (08:05)
[2020-04-20] MEDS: CHOLECALCIFEROL (VITAMIN D3) 1,000 UNIT TABLET PO SCH ×2 (08:05→21:16)
[2020-04-20] MEDS: ASPIRIN CHEWABLE 81 MG TABLET. PO SCH (08:05)
[2020-04-20] MEDS: LACTOBACILLUS RHAMNOSUS GG 1 CAPSULE. PO SCH ×2 (08:06→21:16)
[2020-04-20] MEDS: METOPROLOL SUCC 24HR ER 25 MG TAB.ER.24H. PO SCH (08:06)
[2020-04-20] MEDS: AZITHROMYCIN 500 MG in IV NORMAL SALINE 250ML 250 ML IV SCH (08:07)
[2020-04-20] MEDS: PANTOPRAZOLE 40 MG TABLET.DR. PO SCH (08:07)
[2020-04-20 08:10] LABS: UR POTASSIUM 23.1 mmol/L (Not Estab.)
[2020-04-20] MEDS: INSULIN LISPRO 300 UNITS/3 ML VIAL. SQ SCH ×3 (08:16→17:08)
[2020-04-20] MEDS: THIAMINE INJ 200 MG in IV DEXTROSE 5% 50 ML IV SCH ×2 (09:09→21:25)
[2020-04-20] MEDS ORDERED: ALBUTEROL INHALER INH PRN (09:15)
--- NOTE | 2020-04-20 09:17 | PDOC ---
PULMONARY PROGRESS NOTES DATE: 04/20/20 TIME: 09:10 Subjective Increased wheezing and SOB Remains on N/C 5 liters Vitals Vital Signs Date Time Temp Pulse Resp B/P (MAP) Pulse Ox O2 Delivery O2 Flow Rate FiO2 04/20/20 08:06 79 151/73 04/20/20 07:20 95 Nasal Cannula 4.0 04/20/20 04:00 98.0 24 98.0 ROS: No Nausea, No Chest Pain, No Abdominal Pain, No Increase Cough General: Alert, No acute distress Lungs: Wheezing Cardiovascular: S1, S2 Abdomen: Soft, Non-tender Extremities: No Edema Labs Laboratory Tests Test 04/18/20 13:40 04/18/20 13:49 04/18/20 15:50 04/18/20 16:22 White Blood Count 12.2 x10^3/uL (4.0-11.0) Red Blood Count 5.25 x10^6/uL (4.30-5.70) Hemoglobin 15.3 g/dL (13.0-17.5) Hematocrit 45.6 % (39.0-53.0) Mean Corpuscular Volume 87 fL (79-100) Mean Corpuscular Hemoglobin 29 pg (25-35) Mean Corpuscular Hemoglobin Concent 34 g/dL (31-37) Red Cell Distribution Width 14.2 % (11.5-14.5) Platelet Count 429 x10^3/uL (140-400) Neutrophils (%) (Auto) 78 % (31-73) Lymphocytes (%) (Auto) 10 % (24-48) Monocytes (%) (Auto) 7 % (0-9) Eosinophils (%) (Auto) 5 % (0-3) Basophils (%) (Auto) 1 % (0-3) Neutrophils # (Auto) 9.5 x10^3/uL (1.8-7.7) Lymphocytes # (Auto) 1.2 x10^3/uL (1.0-4.8) Monocytes # (Auto) 0.9 x10^3/uL (0.0-1.1) Eosinophils # (Auto) 0.6 x10^3/uL (0.0-0.7) Basophils # (Auto) 0.1 x10^3/uL (0.0-0.2) Prothrombin Time 12.7 SEC (11.7-14.0) Prothromb Time International Ratio 1.0 (0.8-1.1) Activated Partial Thromboplast Time 27 SEC (24-38) Sodium Level 120 mmol/L (136-145) Potassium Level 3.8 mmol/L (3.5-5.1) Chloride Level 81 mmol/L (98-107) Carbon Dioxide Level 28 mmol/L (21-32) Anion Gap 11 (6-14) Blood Urea Nitrogen 10 mg/dL (8-26) Creatinine 1.0 mg/dL (0.7-1.3) Estimated GFR (Cockcroft-Gault) 90.7 BUN/Creatinine Ratio 10 (6-20) Glucose Level 174 mg/dL (70-99) Calcium Level 9.3 mg/dL (8.5-10.1) Magnesium Level 1.3 mg/dL (1.8-2.4) Total Bilirubin 0.8 mg/dL (0.2-1.0) Aspartate Amino Transf (AST/SGOT) 60 U/L (15-37) Alanine Aminotransferase (ALT/SGPT) 84 U/L (16-63) Alkaline Phosphatase 67 U/L (46-116) Creatine Kinase 469 U/L (39-308) Creatine Kinase MB (Mass) 14.4 ng/mL (0.0-3.6) Creatine Kinase MB Relative Index 3.1 % (0-4) Troponin I Quantitative < 0.017 ng/mL (0.000-0.055) DY-Owf-M-Type Natriuretic Peptide 142 pg/mL (0-124) Total Protein 8.5 g/dL (6.4-8.2) Albumin 4.6 g/dL (3.4-5.0) Albumin/Globulin Ratio 1.2 (1.0-1.7) O2 Saturation 96 % (92-99) 99 % (92-99) Arterial Blood pH 7.42 (7.35-7.45) 7.35 (7.35-7.45) Arterial Blood pCO2 at Patient Temp 37 mmHg (35-46) 46 mmHg (35-46) Arterial Blood pO2 at Patient Temp 86 mmHg (65-108) 167 mmHg (65-108) Arterial Blood HCO3 24 mmol/L (21-28) 25 mmol/L (21-28) Arterial Blood Base Excess -1 mmol/L (-3-3) -1 mmol/L (-3-3) Oxyhemoglobin 94.9 % 98.1 % Methemoglobin 0.5 % (0.0-1.9) 0.5 % (0.0-1.9) Carbon Monoxide, Quantitative 0.4 % (0.0-1.9) 0.4 % (0.0-1.9) FiO2 36 100 Coronavirus (PCR) Not detected (Not Detected) Test 04/19/20 07:05 04/19/20 09:30 04/19/20 13:00 04/19/20 17:15 White Blood Count 11.1 x10^3/uL (4.0-11.0) Red Blood Count 4.90 x10^6/uL (4.30-5.70) Hemoglobin 14.6 g/dL (13.0-17.5) Hematocrit 42.7 % (39.0-53.0) Mean Corpuscular Volume 87 fL (79-100) Mean Corpuscular Hemoglobin 30 pg (25-35) Mean Corpuscular Hemoglobin Concent 34 g/dL (31-37) Red Cell Distribution Width 14.2 % (11.5-14.5) Platelet Count 358 x10^3/uL (140-400) Neutrophils (%) (Auto) 89 % (31-73) Lymphocytes (%) (Auto) 7 % (24-48) Monocytes (%) (Auto) 3 % (0-9) Eosinophils (%) (Auto) 0 % (0-3) Basophils (%) (Auto) 0 % (0-3) Neutrophils # (Auto) 9.9 x10^3/uL (1.8-7.7) Lymphocytes # (Auto) 0.8 x10^3/uL (1.0-4.8) Monocytes # (Auto) 0.4 x10^3/uL (0.0-1.1) Eosinophils # (Auto) 0.0 x10^3/uL (0.0-0.7) Basophils # (Auto) 0.0 x10^3/uL (0.0-0.2) Segmented Neutrophils % 90 % (35-66) Lymphocytes % 6 % (24-48) Monocytes % 4 % (0-10) Platelet Estimate Adequate (ADEQUATE) Urine Sodium 46 mmol/L (Not Estab.) Urine Potassium 23.1 mmol/L (Not Estab.) Urine Chloride 53 mmol/L (Not Estab.) Sodium Level 122 mmol/L (136-145) 124 mmol/L (136-145) Potassium Level 4.0 mmol/L (3.5-5.1) Chloride Level 85 mmol/L (98-107) Carbon Dioxide Level 30 mmol/L (21-32) Anion Gap 7 (6-14) Blood Urea Nitrogen 11 mg/dL (8-26) Creatinine 0.9 mg/dL (0.7-1.3) Estimated GFR (Cockcroft-Gault) 102.5 Glucose Level 171 mg/dL (70-99) Calcium Level 8.2 mg/dL (8.5-10.1) Magnesium Level 2.6 mg/dL (1.8-2.4) Thyroid Stimulating Hormone (TSH) 0.148 uIU/mL (0.358-3.74) Urine Collection Type Unknown Urine Color Yellow Urine Clarity Clear Urine pH 6.5 (<5.0-8.0) Urine Specific [place] 1.010 (1.000-1.030) Urine Protein 30 mg/dL (NEG-TRACE) Urine Glucose (UA) 100 mg/dL (NEG) Urine Ketones (Stick) Trace mg/dL (NEG) Urine Blood Negative (NEG) Urine Nitrite Negative (NEG) Urine Bilirubin Negative (NEG) Urine Urobilinogen Dipstick 0.2 mg/dL (0.2 mg/dL) Urine Leukocyte Esterase Negative (NEG) Urine RBC 1-2 /HPF (0-2) Urine WBC 0 /HPF (0-4) Urine Squamous Epithelial Cells Few /LPF Urine Bacteria 0 /HPF (0-FEW) Glucose (Fingerstick) 150 mg/dL (70-99) Test 04/19/20 19:10 04/19/20 20:34 04/20/20 04:15 04/20/20 07:38 Sodium Level 123 mmol/L (136-145) 122 mmol/L (136-145) Glucose (Fingerstick) 121 mg/dL (70-99) 163 mg/dL (70-99) Potassium Level 3.8 mmol/L (3.5-5.1) Chloride Level 83 mmol/L (98-107) Carbon Dioxide Level 31 mmol/L (21-32) Anion Gap 8 (6-14) Blood Urea Nitrogen 11 mg/dL (8-26) Creatinine 0.8 mg/dL (0.7-1.3) Estimated GFR (Cockcroft-Gault) 117.4 Glucose Level 154 mg/dL (70-99) Calcium Level 8.5 mg/dL (8.5-10.1) Laboratory Tests Test 04/19/20 09:30 04/19/20 13:00 04/19/20 17:15 04/19/20 19:10 Urine Collection Type Unknown Urine Color Yellow Urine Clarity Clear Urine pH 6.5 (<5.0-8.0) Urine Specific [place] 1.010 (1.000-1.030) Urine Protein 30 mg/dL (NEG-TRACE) Urine Glucose (UA) 100 mg/dL (NEG) Urine Ketones (Stick) Trace mg/dL (NEG) Urine Blood Negative (NEG) Urine Nitrite Negative (NEG) Urine Bilirubin Negative (NEG) Urine Urobilinogen Dipstick 0.2 mg/dL (0.2 mg/dL) Urine Leukocyte Esterase Negative (NEG) Urine RBC 1-2 /HPF (0-2) Urine WBC 0 /HPF (0-4) Urine Squamous Epithelial Cells Few /LPF Urine Bacteria 0 /HPF (0-FEW) Sodium Level 124 mmol/L (136-145) 123 mmol/L (136-145) Glucose (Fingerstick) 150 mg/dL (70-99) Test 04/19/20 20:34 04/20/20 04:15 04/20/20 07:38 Glucose (Fingerstick) 121 mg/dL (70-99) 163 mg/dL (70-99) Sodium Level 122 mmol/L (136-145) Potassium Level 3.8 mmol/L (3.5-5.1) Chloride Level 83 mmol/L (98-107) Carbon Dioxide Level 31 mmol/L (21-32) Anion Gap 8 (6-14) Blood Urea Nitrogen 11 mg/dL (8-26) Creatinine 0.8 mg/dL (0.7-1.3) Estimated GFR (Cockcroft-Gault) 117.4 Glucose Level 154 mg/dL (70-99) Calcium Level 8.5 mg/dL (8.5-10.1) Medications Active Scripts Medications Dose Route/Sig Max Daily Dose Days Date Category Metformin Hcl Er (Metformin Hcl) 500 Mg Tab.er.24h 500 Mg PO BIDWMEALS 01/07/20 Reported Prednisone (Prednisone) 10 Mg Tablet 30 Mg PO DAILY 5 01/07/20 Reported Trelegy Ellipta 100-62.5-25 (Fluticasone/Umeclidin/Vilanter) 1 Each Blst.w.dev 1 Each IH PRN DAILY PRN 01/03/20 Reported Montelukast Sodium Tablet (Montelukast Sodium) 10 Mg Tablet 10 Mg PO HS 01/03/20 Reported Pantoprazole Sodium (Pantoprazole Sodium) 40 Mg Tablet.dr 40 Mg PO DAILYAC 01/03/20 Reported Metoprolol Succinate ( Xl ) (Metoprolol Succinate) 25 Mg Tab.er.24h 1 Tab PO DAILY 06/18/17 Rx Ventolin Hfa Inhaler (Albuterol Sulfate) 18 Gm Hfa.aer.ad 2 Puff PO Q4HRS PRN 03/18/16 Reported Duoneb 0.5-3(2.5) Mg/3 Ml (Albuterol/Ipratropium) 3 Ml Ampul.neb 3 Ml NEB QID 03/18/16 Reported Amlodipine Besylate 10 Mg Tablet 10 Mg PO DAILY 03/18/16 Reported Aspirin 81 Mg Tab.chew 1 Tab PO DAILY 03/18/16 Reported Atorvastatin Calcium 40 Mg Tablet 1 Tab PO DAILY 10/09/14 Reported Comments CXR 04/20/2020 Impression: No acute radiographic abnormality is seen. Impression . IMPRESSION: 1. Acute hypoxic respiratory failure secondary to acute exacerbation of chronic obstructive pulmonary disease.-- now with increased wheezing 2. 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 3. Hyponatremia, unclear etiology. He has hypochloremia as well. Would benefit from normal saline. 4. Abnormal liver function tests. Plan . RECOMMENDATIONS: Continue with present nasal cannula, on 5 liters, wean as tolerated, increased wheezing and SOB today DDimer normal. No need for any further w/u NEBS change to q4 and add pulmicort hold metoprolol till wheezing resolve CXR reviewed Hole beta-anum for at least 24 hours Cont. IV steroids now with increased dose 60mg IV q6 Cont. Empiric antibiotics. GI/ DVT prophylaxis. Will need outpatient PFTS Discussed with RN . GHANSHYAM LOMBARDI MD Apr 20, 2020 09:17
[2020-04-20] MEDS: LORazepam 0.5 MG TABLET PO PRN (11:21)
--- NOTE | 2020-04-20 11:27 | PDOC ---
GENERAL General: Patient examined chart reviewed today is hospital day 3 for this patient with acute on chronic hypoxic respiratory failure secondary to acute bronchitis. He has ruled out for COVID-19. On his last admission here in December he was admitted profoundly hyponatremic with a sodium of 117. He responded to holding the hydrochlorothiazide which he has continued to do and discharge sodium on that last admission was 132. He is admitted again with significant hyponatremia admission sodium of 120. Nephrology has been consulted and their assistance is appreciated. Patient is significantly wheezing today he is on high-dose steroids, nebulizers, antibiotics, and regimen for allergies. I appreciate pulmonary consultation in his case. We will continue current management otherwise. Total time today is 30 minutes with greater than 50% in counseling and coordination of care most of which in discussion with patient and nursing at bedside Problems: (1) Hyponatremia (2) Respiratory failure, [id number] (3) COPD with acute exacerbation VITAL SIGNS Vital Signs/I&O: Vital Signs Date Time Temp Pulse Resp B/P (MAP) Pulse Ox O2 Delivery O2 Flow Rate FiO2 04/20/20 08:06 79 151/73 04/20/20 08:00 97.9 18 95 Room Air 97.9 04/20/20 08:00 4.0 I & O 04/19/20 04/19/20 04/20/20 15:00 23:00 07:00 Intake Total 370 ml Output Total 700 ml Balance -330 ml In general the patient is anxious dyspneic wheezing on my evaluation today HEENT exam is unremarkable Chest bilateral wheezing throughout. Heart S1-S2 normal regular rate and rhythm no murmurs or gallops are noted Abdomen soft nontender nondistended no masses organomegaly noted Extremity exam is unremarkable for acute abnormality ALLERGIES Allergies: Allergies Coded Allergies Type Severity Reaction Last Updated Verified Penicillins Allergy Intermediate rash 11/15/14 Yes MEDS Medications: Current Medications Medications (Trade) Dose Ordered Sig/Hailee Start Time Stop Time Status Last Admin Dose Admin Acetaminophen (Tylenol) 650 mg PRN Q4HRS PRN 04/18/20 15:30 04/19/20 20:06 DC Al Hydroxide/Mg Hydroxide (Mylanta Plus Xs) 30 ml PRN DAILY PRN 04/18/20 15:30 Albuterol Sulfate (Ventolin Neb Soln) 2.5 mg PRN Q2HR PRN 04/19/20 18:30 04/20/20 09:10 DC Albuterol/ Ipratropium (Duoneb) 3 ml Q4HRS 04/20/20 09:15 Amlodipine Besylate (Norvasc) 10 mg DAILY 04/19/20 09:00 04/20/20 08:05 Ascorbic Acid (Vitamin C) 500 mg Q6H 04/18/20 18:15 04/20/20 06:14 Aspirin (Aspirin Chewable) 81 mg DAILY 04/19/20 09:00 04/20/20 08:05 Atorvastatin Calcium (Lipitor) 40 mg QHS 04/18/20 21:00 04/19/20 20:51 Atropine Sulfate (ATROPINE 0.5mg SYRINGE) 0.5 mg PRN Q5MIN PRN 04/18/20 18:45 Azithromycin 500 mg/Sodium Chloride 250 ml @ 250 mls/hr DAILY 04/18/20 18:30 04/22/20 08:59 04/20/20 08:07 Budesonide (Pulmicort) 0.5 mg RTBID 04/20/20 20:00 Dexmedetomidine HCl 400 mcg/ Sodium Chloride 100 ml @ 0 mls/hr CONT PRN 04/18/20 18:45 04/20/20 09:12 DC 04/19/20 05:32 Dextrose (Dextrose 50%-Water Syringe) 12.5 gm PRN Q15MIN PRN 04/19/20 17:00 Docusate Sodium (Colace) 100 mg PRN BID PRN 04/18/20 15:30 Enoxaparin Sodium (Lovenox 40mg Syringe) 40 mg Q24H 04/18/20 21:00 04/19/20 20:52 Guaifenesin (Robitussin) 200 mg PRN Q4HRS PRN 04/18/20 15:30 04/20/20 01:21 Insulin Human Lispro (HumaLOG) 0-9 UNITS TIDWMEALS 04/19/20 17:00 04/20/20 08:16 Lactobacillus Rhamnosus (Culturelle) 1 cap BID 04/19/20 09:00 04/20/20 08:06 Levofloxacin/ Dextrose 100 ml @ 100 mls/hr Q24H 04/18/20 16:00 04/18/20 18:12 DC Lorazepam (Ativan) 1 mg PRN Q4HRS PRN 04/19/20 16:30 04/19/20 20:51 Magnesium Sulfate 100 ml @ 25 mls/hr 1X ONCE 04/18/20 19:00 04/18/20 22:59 DC 04/18/20 19:47 Magnesium Sulfate/ Dextrose 100 ml @ 100 mls/hr 1X ONCE 04/18/20 15:30 04/18/20 16:29 DC 04/18/20 16:00 Methylprednisolone Sodium Succinate (SOLU-Medrol 40MG VIAL) 60 mg Q6HRS 04/20/20 09:15 Methylprednisolone Sodium Succinate (SOLU-Medrol 125MG VIAL) 125 mg 1X ONCE 04/18/20 13:30 04/18/20 13:33 DC 04/18/20 13:30 Metoprolol Succinate (Toprol Xl) 25 mg DAILY 04/19/20 09:00 04/20/20 09:24 DC 04/20/20 08:06 Montelukast Sodium (Singulair) 10 mg HS 04/18/20 21:00 04/19/20 20:51 Non-Formulary Medication 1 ea PRN Q2HRS PRN 04/20/20 09:15 Ondansetron HCl (Zofran) 4 mg PRN Q4HRS PRN 04/18/20 15:30 Pantoprazole Sodium (Protonix) 40 mg DAILYAC 04/19/20 07:30 04/20/20 08:07 Sodium Chloride 500 ml @ 500 mls/hr 1X PRN PRN 04/18/20 18:45 Sterile Water (WATER for RESP) 1,000 ml CONT PRN 04/18/20 18:15 04/19/20 00:33 Thiamine HCl 200 mg/Dextrose 52 ml @ 102 mls/hr Q12H 04/20/20 09:00 04/20/20 09:09 Vitamin D (Vitamin D3) 1,000 unit BID 04/18/20 21:00 04/20/20 08:05 Zinc Sulfate (Orazinc) 220 mg DAILY 04/19/20 09:00 04/20/20 08:05 Zolpidem Tartrate (Ambien) 5 mg PRN QHS PRN 04/18/20 15:30 Current Medications Medications (Trade) Dose Ordered Sig/Hailee Route PRN Reason Start Time Stop Time Status Last Admin Dose Admin Lorazepam (Ativan) 1 mg PRN Q4HRS PRN PO ANXIETY / AGITATION 04/19/20 16:30 04/19/20 20:51 Albuterol/ Ipratropium (Duoneb) 3 ml Q4HRS W/A NEB 04/19/20 18:00 04/20/20 09:12 DC 04/20/20 07:15 Insulin Human Lispro (HumaLOG) 0-9 UNITS TIDWMEALS SQ 04/19/20 17:00 04/20/20 08:16 Methylprednisolone Sodium Succinate (SOLU-Medrol 40MG VIAL) 40 mg Q8HRS IV 04/19/20 19:00 04/20/20 09:13 DC 04/20/20 06:14 Thiamine HCl 200 mg/Dextrose 52 ml @ 102 mls/hr Q12H IV 04/20/20 09:00 04/20/20 09:09 LAB Lab: Laboratory Tests Test 04/19/20 13:00 04/19/20 17:15 04/19/20 19:10 04/19/20 20:34 Sodium Level 124 mmol/L (136-145) L 123 mmol/L (136-145) L Glucose (Fingerstick) 150 mg/dL (70-99) H 121 mg/dL (70-99) H Test 04/20/20 04:15 04/20/20 07:38 D-Dimer (Rosalinda) 0.28 ug/mlFEU (0.00-0.50) Sodium Level 122 mmol/L (136-145) L Potassium Level 3.8 mmol/L (3.5-5.1) Chloride Level 83 mmol/L (98-107) L Carbon Dioxide Level 31 mmol/L (21-32) Anion Gap 8 (6-14) Blood Urea Nitrogen 11 mg/dL (8-26) Creatinine 0.8 mg/dL (0.7-1.3) Estimated GFR (Cockcroft-Gault) 117.4 Glucose Level 154 mg/dL (70-99) H Calcium Level 8.5 mg/dL (8.5-10.1) Glucose (Fingerstick) 163 mg/dL (70-99) H Laboratory Tests 04/19/20 13:00 04/19/20 19:10 04/20/20 04:15 ASSESSMENT & PLAN A&P Plan as noted above This note was created using [employer] and may have omissions and/or errors due to the nature of real-time voice research and evaluation analyst. Justicifation of Admission Dx: Justifications for Admission: Justification of Admission Dx: Yes Acute COPD Exacerbation: Acute COPD Exacerbation JAM LIRA MD Apr 20, 2020 11:26
[2020-04-20 12:00] VITALS: BP 133/77
--- NOTE | 2020-04-20 12:01 | PDOC ---
DATE OF SERVICE DATE: 04/20/20 TIME: 12:01 SUBJECTIVE ROS Transferred out of ICU, states feeling better OBJECTIVE Vital Signs Vital Signs Date Time Temp Pulse Resp B/P (MAP) Pulse Ox O2 Delivery O2 Flow Rate FiO2 04/20/20 11:41 Nasal Cannula 4.0 04/20/20 08:06 79 151/73 04/20/20 08:00 97.9 18 95 97.9 I & 0 Intake and Output 04/20/20 06:59 Intake Total 370 ml Output Total 700 ml Balance -330 ml Intake Oral 370 ml Output Urine Total 700 ml # Voids 2 PHYSICAL EXAM Physical Exam GEN.: NAD , sitting up in chair HEENT:OM moist, On o2 by NC NECK: Supple. LUNGS: Non labored, CTA HEART: S1, S2 present. ABDOMEN: Soft, nontender. Positive bowel sounds. EXTREMITIES: No cyanosis, edema NEUROLOGIC: grossly normal, SKIN: No rash No CVA or SP tenderness DIAGNOSIS/ASSESSMENT Assessment & Plan HypoNatremia- Was hospitalized in December with Na 117(was on HCTZ) , resolved at tx Currently Na 122<-120 , stable, No improvement , Restrict fluid intake to 1200 mls Asymptomatic , strict I/O , Monitor sodium if possible Hold PPI as well ,Renal function normal, Strict I/O Hypertension - Antihypertensives,Monitor BP COPD- On o2 Acute hypoxic respiratory failure secondary to acute exacerbation of chronic obstructive pulmonary disease. 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 COVID negative Abnormal liver function tests. Quinton RN COMMENT/RELEVANT DATA Meds Current Medications Medications (Trade) Dose Ordered Sig/Hailee Start Time Stop Time Status Last Admin Dose Admin Acetaminophen (Tylenol) 650 mg PRN Q4HRS PRN 04/18/20 15:30 04/19/20 20:06 DC Al Hydroxide/Mg Hydroxide (Mylanta Plus Xs) 30 ml PRN DAILY PRN 04/18/20 15:30 Albuterol Sulfate (Ventolin Neb Soln) 2.5 mg PRN Q2HR PRN 04/19/20 18:30 04/20/20 09:10 DC Albuterol/ Ipratropium (Duoneb) 3 ml Q4HRS 04/20/20 09:15 04/20/20 11:41 3 ML Amlodipine Besylate (Norvasc) 10 mg DAILY 04/19/20 09:00 04/20/20 08:05 10 MG Ascorbic Acid (Vitamin C) 500 mg Q6H 04/18/20 18:15 04/20/20 11:09 500 MG Aspirin (Aspirin Chewable) 81 mg DAILY 04/19/20 09:00 04/20/20 08:05 81 MG Atorvastatin Calcium (Lipitor) 40 mg QHS 04/18/20 21:00 04/19/20 20:51 40 MG Atropine Sulfate (ATROPINE 0.5mg SYRINGE) 0.5 mg PRN Q5MIN PRN 04/18/20 18:45 Azithromycin 500 mg/Sodium Chloride 250 ml @ 250 mls/hr DAILY 04/18/20 18:30 04/22/20 08:59 04/20/20 08:07 250 MLS/HR Budesonide (Pulmicort) 0.5 mg RTBID 04/20/20 20:00 Dexmedetomidine HCl 400 mcg/ Sodium Chloride 100 ml @ 0 mls/hr CONT PRN 04/18/20 18:45 04/20/20 09:12 DC 04/19/20 05:32 11.2 MLS/HR Dextrose (Dextrose 50%-Water Syringe) 12.5 gm PRN Q15MIN PRN 04/19/20 17:00 Docusate Sodium (Colace) 100 mg PRN BID PRN 04/18/20 15:30 Enoxaparin Sodium (Lovenox 40mg Syringe) 40 mg Q24H 04/18/20 21:00 04/19/20 20:52 40 MG Guaifenesin (Robitussin) 200 mg PRN Q4HRS PRN 04/18/20 15:30 04/20/20 11:21 200 MG Insulin Human Lispro (HumaLOG) 0-9 UNITS TIDWMEALS 04/19/20 17:00 04/20/20 08:16 4 UNITS Lactobacillus Rhamnosus (Culturelle) 1 cap BID 04/19/20 09:00 04/20/20 08:06 1 CAP Levofloxacin/ Dextrose 100 ml @ 100 mls/hr Q24H 04/18/20 16:00 04/18/20 18:12 DC Lorazepam (Ativan) 1 mg PRN Q4HRS PRN 04/19/20 16:30 04/19/20 20:51 1 MG Magnesium Sulfate 100 ml @ 25 mls/hr 1X ONCE 04/18/20 19:00 04/18/20 22:59 DC 04/18/20 19:47 25 MLS/HR Magnesium Sulfate/ Dextrose 100 ml @ 100 mls/hr 1X ONCE 04/18/20 15:30 04/18/20 16:29 DC 04/18/20 16:00 100 MLS/HR Methylprednisolone Sodium Succinate (SOLU-Medrol 40MG VIAL) 60 mg Q6HRS 04/20/20 09:15 04/20/20 11:09 60 MG Methylprednisolone Sodium Succinate (SOLU-Medrol 125MG VIAL) 125 mg 1X ONCE 04/18/20 13:30 04/18/20 13:33 DC 04/18/20 13:30 125 MG Metoprolol Succinate (Toprol Xl) 25 mg DAILY 04/19/20 09:00 04/20/20 09:24 DC 04/20/20 08:06 25 MG Montelukast Sodium (Singulair) 10 mg HS 04/18/20 21:00 04/19/20 20:51 10 MG Non-Formulary Medication 1 ea PRN Q2HRS PRN 04/20/20 09:15 Ondansetron HCl (Zofran) 4 mg PRN Q4HRS PRN 04/18/20 15:30 Pantoprazole Sodium (Protonix) 40 mg DAILYAC 04/19/20 07:30 04/20/20 08:07 40 MG Sodium Chloride 500 ml @ 500 mls/hr 1X PRN PRN 04/18/20 18:45 Sterile Water (WATER for RESP) 1,000 ml CONT PRN 04/18/20 18:15 04/19/20 00:33 1,000 ML Thiamine HCl 200 mg/Dextrose 52 ml @ 102 mls/hr Q12H 04/20/20 09:00 04/20/20 09:09 102 MLS/HR Vitamin D (Vitamin D3) 1,000 unit BID 04/18/20 21:00 04/20/20 08:05 1,000 UNIT Zinc Sulfate (Orazinc) 220 mg DAILY 04/19/20 09:00 04/20/20 08:05 220 MG Zolpidem Tartrate (Ambien) 5 mg PRN QHS PRN 04/18/20 15:30 Lab Laboratory Tests Test 04/19/20 13:00 04/19/20 17:15 04/19/20 19:10 04/19/20 20:34 Sodium Level 124 mmol/L (136-145) 123 mmol/L (136-145) Glucose (Fingerstick) 150 mg/dL (70-99) 121 mg/dL (70-99) Test 04/20/20 04:15 04/20/20 07:38 D-Dimer (Rosalinda) 0.28 ug/mlFEU (0.00-0.50) Sodium Level 122 mmol/L (136-145) Potassium Level 3.8 mmol/L (3.5-5.1) Chloride Level 83 mmol/L (98-107) Carbon Dioxide Level 31 mmol/L (21-32) Anion Gap 8 (6-14) Blood Urea Nitrogen 11 mg/dL (8-26) Creatinine 0.8 mg/dL (0.7-1.3) Estimated GFR (Cockcroft-Gault) 117.4 Glucose Level 154 mg/dL (70-99) Calcium Level 8.5 mg/dL (8.5-10.1) Glucose (Fingerstick) 163 mg/dL (70-99) Results All relevant outside records, renal labs, imaging studies, telemetry/EKG's were reviewed. Justicifation of Admission Dx: Justifications for Admission: Justification of Admission Dx: Yes Acute COPD Exacerbation: Acute COPD Exacerbation DELBERT FERRERA MD Apr 20, 2020 12:01
[2020-04-20 12:47] VITALS: BP 133/77
--- NOTE | 2020-04-20 15:09 | NUR ---
spoke with anastacio; [facility] . w explained about changing his respiratory treatments, can have his rescue inhaler at bedside , increase his steroids.
--- NOTE | 2020-04-20 16:13 | NUR ---
resting quietly in bed. o2 remains at 4l/nc. he was given Ativan and cough syrup x1
[2020-04-20 19:00] VITALS: BP 180/99
[2020-04-20] MEDS: LORazepam 1 MG TABLET PO PRN (21:16)
[2020-04-20] MEDS: ENOXAPARIN 40 MG/0.4 ML SYRINGE. SQ SCH (21:16)
[2020-04-20] MEDS: MONTELUKAST SODIUM 10 MG TABLET. PO SCH (21:16)
[2020-04-20] MEDS: ATORVASTATIN CALCIUM 40 MG TABLET. PO SCH (21:20)
[2020-04-21 00:01] VITALS: BP 159/97
[2020-04-21] MEDS: ASCORBIC ACID 500 MG TABLET PO SCH ×4 (01:33→18:25)
[2020-04-21] MEDS: LORazepam 1 MG TABLET PO PRN ×2 (01:33→06:00)
[2020-04-21] MEDS: methylPREDNISolone SOD SUCC PF 40 MG/ML VIAL. IV SCH ×4 (01:33→18:25)
[2020-04-21] MEDS: IPRATRPIUM/ALBUTEROL 0.5/2.5MG 3 ML NEBU. NEB SCH ×6 (02:55→19:29)
[2020-04-21 04:00] VITALS: BP 151/89
[2020-04-21] MEDS: BUDESONIDE 0.5 MG/2 ML NEBU. NEB SCH ×2 (07:30→19:29)
[2020-04-21 08:00] VITALS: BP 166/96
[2020-04-21 08:05] LABS: BASO % 0 % (0-3); EOS % 0 % (0-3); HEMOGLOBIN 13.8 g/dL (13.0-17.5); LYMPH # 0.3 x10^3/uL (1.0-4.8); LYMPH % 2 % (24-48); MEAN CORPUSCULAR HEMOGLOBIN 30 pg (25-35); MEAN CORPUSCULAR HGB CONC 35 g/dL (31-37); MEAN CORPUSCULAR VOLUME 86 fL (79-100); MONO # 0.6 x10^3/uL (0.0-1.1); MONO % 4 % (0-9); NEUT # 13.2 x10^3/uL (1.8-7.7); NEUT % 94 % (31-73); PLATELET COUNT 368 x10^3/uL (140-400); RED BLOOD COUNT 4.67 x10^6/uL (4.30-5.70); RED CELL DISTRIBUTION WIDTH 14.5 % (11.5-14.5); WHITE BLOOD COUNT 14.1 x10^3/uL (4.0-11.0)
[2020-04-21 08:44] LABS: ALBUMIN 4.1 g/dL (3.4-5.0); ALBUMIN/GLOBULIN RATIO 1.2 (1.0-1.7); CALCIUM 8.8 mg/dL (8.5-10.1); CREATININE 0.8 mg/dL (0.7-1.3); GFR 117.4; POTASSIUM 3.3 mmol/L (3.5-5.1); TOTAL BILIRUBIN 0.6 mg/dL (0.2-1.0); TOTAL PROTEIN 7.4 g/dL (6.4-8.2)
[2020-04-21] MEDS: amLODIPine BESYLATE 10 MG TABLET PO SCH (09:36)
[2020-04-21] MEDS: ASPIRIN CHEWABLE 81 MG TABLET. PO SCH (09:36)
[2020-04-21] MEDS: LACTOBACILLUS RHAMNOSUS GG 1 CAPSULE. PO SCH ×2 (09:37→20:52)
[2020-04-21] MEDS: ZINC SULFATE 220 MG CAPSULE. PO SCH (09:37)
[2020-04-21] MEDS: CHOLECALCIFEROL (VITAMIN D3) 1,000 UNIT TABLET PO SCH ×2 (09:37→20:51)
[2020-04-21] MEDS: AZITHROMYCIN 500 MG in IV NORMAL SALINE 250ML 250 ML IV SCH (09:37)
[2020-04-21] MEDS: PANTOPRAZOLE 40 MG TABLET.DR. PO SCH (09:37)
--- NOTE | 2020-04-21 09:40 | NUR ---
SW following. Discussed with RN, pt from home with , ada diet, 3L oxygen - will likely need a 6 minute walk prior to discharge. COVID-19 negative. SW will continue to follow.
[2020-04-21] MEDS: INSULIN LISPRO 300 UNITS/3 ML VIAL. SQ SCH ×4 (09:42→21:14)
--- NOTE | 2020-04-21 11:00 | PDOC ---
PULMONARY PROGRESS NOTES DATE: 04/21/20 TIME: 10:59 Subjective Improved wheezing and SOB Remains on N/C 5 liters Vitals Vital Signs Date Time Temp Pulse Resp B/P (MAP) Pulse Ox O2 Delivery O2 Flow Rate FiO2 04/21/20 09:36 104 166/96 04/21/20 08:00 98.0 16 97 Room Air 98.0 04/21/20 08:00 3.0 ROS: No Nausea, No Chest Pain, No Abdominal Pain, No Increase Cough General: Alert, No acute distress Lungs: Wheezing (faint) Cardiovascular: S1, S2 Abdomen: Soft, Non-tender Extremities: No Edema Labs Laboratory Tests Test 04/19/20 13:00 04/19/20 17:15 04/19/20 19:10 04/19/20 20:34 Sodium Level 124 mmol/L (136-145) 123 mmol/L (136-145) Glucose (Fingerstick) 150 mg/dL (70-99) 121 mg/dL (70-99) Test 04/20/20 04:15 04/20/20 07:38 04/20/20 12:11 04/20/20 16:42 D-Dimer (Rosalinda) 0.28 ug/mlFEU (0.00-0.50) Sodium Level 122 mmol/L (136-145) Potassium Level 3.8 mmol/L (3.5-5.1) Chloride Level 83 mmol/L (98-107) Carbon Dioxide Level 31 mmol/L (21-32) Anion Gap 8 (6-14) Blood Urea Nitrogen 11 mg/dL (8-26) Creatinine 0.8 mg/dL (0.7-1.3) Estimated GFR (Cockcroft-Gault) 117.4 Glucose Level 154 mg/dL (70-99) Calcium Level 8.5 mg/dL (8.5-10.1) Glucose (Fingerstick) 163 mg/dL (70-99) 209 mg/dL (70-99) 196 mg/dL (70-99) Test 04/20/20 20:16 04/21/20 07:25 04/21/20 07:32 Glucose (Fingerstick) 167 mg/dL (70-99) 197 mg/dL (70-99) White Blood Count 14.1 x10^3/uL (4.0-11.0) Red Blood Count 4.67 x10^6/uL (4.30-5.70) Hemoglobin 13.8 g/dL (13.0-17.5) Hematocrit 40.0 % (39.0-53.0) Mean Corpuscular Volume 86 fL (79-100) Mean Corpuscular Hemoglobin 30 pg (25-35) Mean Corpuscular Hemoglobin Concent 35 g/dL (31-37) Red Cell Distribution Width 14.5 % (11.5-14.5) Platelet Count 368 x10^3/uL (140-400) Neutrophils (%) (Auto) 94 % (31-73) Lymphocytes (%) (Auto) 2 % (24-48) Monocytes (%) (Auto) 4 % (0-9) Eosinophils (%) (Auto) 0 % (0-3) Basophils (%) (Auto) 0 % (0-3) Neutrophils # (Auto) 13.2 x10^3/uL (1.8-7.7) Lymphocytes # (Auto) 0.3 x10^3/uL (1.0-4.8) Monocytes # (Auto) 0.6 x10^3/uL (0.0-1.1) Eosinophils # (Auto) 0.0 x10^3/uL (0.0-0.7) Basophils # (Auto) 0.0 x10^3/uL (0.0-0.2) Sodium Level 130 mmol/L (136-145) Potassium Level 3.3 mmol/L (3.5-5.1) Chloride Level 90 mmol/L (98-107) Carbon Dioxide Level 33 mmol/L (21-32) Anion Gap 7 (6-14) Blood Urea Nitrogen 8 mg/dL (8-26) Creatinine 0.8 mg/dL (0.7-1.3) Estimated GFR (Cockcroft-Gault) 117.4 BUN/Creatinine Ratio 10 (6-20) Glucose Level 182 mg/dL (70-99) Calcium Level 8.8 mg/dL (8.5-10.1) Total Bilirubin 0.6 mg/dL (0.2-1.0) Aspartate Amino Transf (AST/SGOT) 63 U/L (15-37) Alanine Aminotransferase (ALT/SGPT) 80 U/L (16-63) Alkaline Phosphatase 61 U/L (46-116) Total Protein 7.4 g/dL (6.4-8.2) Albumin 4.1 g/dL (3.4-5.0) Albumin/Globulin Ratio 1.2 (1.0-1.7) Laboratory Tests Test 04/20/20 12:11 04/20/20 16:42 04/20/20 20:16 04/21/20 07:25 Glucose (Fingerstick) 209 mg/dL (70-99) 196 mg/dL (70-99) 167 mg/dL (70-99) White Blood Count 14.1 x10^3/uL (4.0-11.0) Red Blood Count 4.67 x10^6/uL (4.30-5.70) Hemoglobin 13.8 g/dL (13.0-17.5) Hematocrit 40.0 % (39.0-53.0) Mean Corpuscular Volume 86 fL (79-100) Mean Corpuscular Hemoglobin 30 pg (25-35) Mean Corpuscular Hemoglobin Concent 35 g/dL (31-37) Red Cell Distribution Width 14.5 % (11.5-14.5) Platelet Count 368 x10^3/uL (140-400) Neutrophils (%) (Auto) 94 % (31-73) Lymphocytes (%) (Auto) 2 % (24-48) Monocytes (%) (Auto) 4 % (0-9) Eosinophils (%) (Auto) 0 % (0-3) Basophils (%) (Auto) 0 % (0-3) Neutrophils # (Auto) 13.2 x10^3/uL (1.8-7.7) Lymphocytes # (Auto) 0.3 x10^3/uL (1.0-4.8) Monocytes # (Auto) 0.6 x10^3/uL (0.0-1.1) Eosinophils # (Auto) 0.0 x10^3/uL (0.0-0.7) Basophils # (Auto) 0.0 x10^3/uL (0.0-0.2) Sodium Level 130 mmol/L (136-145) Potassium Level 3.3 mmol/L (3.5-5.1) Chloride Level 90 mmol/L (98-107) Carbon Dioxide Level 33 mmol/L (21-32) Anion Gap 7 (6-14) Blood Urea Nitrogen 8 mg/dL (8-26) Creatinine 0.8 mg/dL (0.7-1.3) Estimated GFR (Cockcroft-Gault) 117.4 BUN/Creatinine Ratio 10 (6-20) Glucose Level 182 mg/dL (70-99) Calcium Level 8.8 mg/dL (8.5-10.1) Total Bilirubin 0.6 mg/dL (0.2-1.0) Aspartate Amino Transf (AST/SGOT) 63 U/L (15-37) Alanine Aminotransferase (ALT/SGPT) 80 U/L (16-63) Alkaline Phosphatase 61 U/L (46-116) Total Protein 7.4 g/dL (6.4-8.2) Albumin 4.1 g/dL (3.4-5.0) Albumin/Globulin Ratio 1.2 (1.0-1.7) Test 04/21/20 07:32 Glucose (Fingerstick) 197 mg/dL (70-99) Medications Active Scripts Medications Dose Route/Sig Max Daily Dose Days Date Category Metformin Hcl Er (Metformin Hcl) 500 Mg Tab.er.24h 500 Mg PO BIDWMEALS 01/07/20 Reported Prednisone (Prednisone) 10 Mg Tablet 30 Mg PO DAILY 5 01/07/20 Reported Trelegy Ellipta 100-62.5-25 (Fluticasone/Umeclidin/Vilanter) 1 Each Blst.w.dev 1 Each IH PRN DAILY PRN 01/03/20 Reported Montelukast Sodium Tablet (Montelukast Sodium) 10 Mg Tablet 10 Mg PO HS 01/03/20 Reported Pantoprazole Sodium (Pantoprazole Sodium) 40 Mg Tablet.dr 40 Mg PO DAILYAC 01/03/20 Reported Metoprolol Succinate ( Xl ) (Metoprolol Succinate) 25 Mg Tab.er.24h 1 Tab PO DAILY 06/18/17 Rx Ventolin Hfa Inhaler (Albuterol Sulfate) 18 Gm Hfa.aer.ad 2 Puff PO Q4HRS PRN 03/18/16 Reported Duoneb 0.5-3(2.5) Mg/3 Ml (Albuterol/Ipratropium) 3 Ml Ampul.neb 3 Ml NEB QID 03/18/16 Reported Amlodipine Besylate 10 Mg Tablet 10 Mg PO DAILY 03/18/16 Reported Aspirin 81 Mg Tab.chew 1 Tab PO DAILY 03/18/16 Reported Atorvastatin Calcium 40 Mg Tablet 1 Tab PO DAILY 10/09/14 Reported Comments CXR 04/20/2020 Impression: No acute radiographic abnormality is seen. Impression . IMPRESSION: 1. Acute hypoxic respiratory failure secondary to acute exacerbation of chronic obstructive pulmonary disease.-- now with improved wheezing 2. 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 3. Hyponatremia, unclear etiology. He has hypochloremia as well. Would benefit from normal saline. 4. Abnormal liver function tests. Plan . RECOMMENDATIONS: Continue with present nasal cannula, , wean as tolerated, i DDimer normal. No need for any further w/u NEBS changed to q4 and added pulmicort hold metoprolol till wheezing resolve CXR reviewed Cont. IV steroids now with increased dose 60mg IV q6 Cont. Empiric antibiotics. GI/ DVT prophylaxis. Will need outpatient PFTS Discussed with ZAY . GHANSHYAM LOMBARDI MD Apr 21, 2020 11:00
--- NOTE | 2020-04-21 12:08 | PDOC ---
[employer] PROGRESS NOTE Date of Service DOS: DATE: 04/21/20 TIME: 11:59 Chief Complaint Chief Complaint Acute hypoxemic respiratory failure, improved COVID-19 infection person under investigation Severe hyponatremia slowly improving Contraction alkalosis Hyperglycemia Asthma, COPD, Diabetes-Type II Hypomagnesemia Plan Follow results of COVID-19 testing follow results of hyponatremia work up Supportive measures Vapotherm has been weaned off and is now on nasal cannula, patient could probably move out of the ICU if ok with consultant nurse. Vitamin C vitamin D and zinc Lovenox Famotidine Statin therapy Empiric antibiotics DVT prophylaxis with Lovenox History of Present Illness History of Present Illness 04/21/20 Pt seen and examined. Reviewed chart, discussed with RN. Sitting up in bed, NAD. Pt took shower this AM and claims to be back to his baseline. Pt claims to be coughing less, but minor wheezing noted on exam. Quit smoking 5 years ago. No acute events reported overnight, case discussed with nursing staff patient in no acute distress no complaints during my visit Vitals/I&O Vitals/I&O: Vital Signs Date Time Temp Pulse Resp B/P (MAP) Pulse Ox O2 Delivery O2 Flow Rate FiO2 04/21/20 11:22 100 Nasal Cannula 2.0 04/21/20 09:36 104 166/96 04/21/20 08:00 98.0 16 98.0 I & O 04/20/20 04/20/20 04/21/20 15:00 23:00 07:00 Intake Total 240 ml Output Total 550 ml Balance -550 ml 240 ml Physical Exam General: Alert, Oriented X3 Heart: Regular rate Lungs: Wheezing (faint) Extremities: No cyanosis Skin: No rashes Labs Labs: Laboratory Tests Test 04/20/20 12:11 04/20/20 16:42 04/20/20 20:16 04/21/20 07:25 Glucose (Fingerstick) 209 mg/dL (70-99) 196 mg/dL (70-99) 167 mg/dL (70-99) White Blood Count 14.1 x10^3/uL (4.0-11.0) Red Blood Count 4.67 x10^6/uL (4.30-5.70) Hemoglobin 13.8 g/dL (13.0-17.5) Hematocrit 40.0 % (39.0-53.0) Mean Corpuscular Volume 86 fL (79-100) Mean Corpuscular Hemoglobin 30 pg (25-35) Mean Corpuscular Hemoglobin Concent 35 g/dL (31-37) Red Cell Distribution Width 14.5 % (11.5-14.5) Platelet Count 368 x10^3/uL (140-400) Neutrophils (%) (Auto) 94 % (31-73) Lymphocytes (%) (Auto) 2 % (24-48) Monocytes (%) (Auto) 4 % (0-9) Eosinophils (%) (Auto) 0 % (0-3) Basophils (%) (Auto) 0 % (0-3) Neutrophils # (Auto) 13.2 x10^3/uL (1.8-7.7) Lymphocytes # (Auto) 0.3 x10^3/uL (1.0-4.8) Monocytes # (Auto) 0.6 x10^3/uL (0.0-1.1) Eosinophils # (Auto) 0.0 x10^3/uL (0.0-0.7) Basophils # (Auto) 0.0 x10^3/uL (0.0-0.2) Sodium Level 130 mmol/L (136-145) Potassium Level 3.3 mmol/L (3.5-5.1) Chloride Level 90 mmol/L (98-107) Carbon Dioxide Level 33 mmol/L (21-32) Anion Gap 7 (6-14) Blood Urea Nitrogen 8 mg/dL (8-26) Creatinine 0.8 mg/dL (0.7-1.3) Estimated GFR (Cockcroft-Gault) 117.4 BUN/Creatinine Ratio 10 (6-20) Glucose Level 182 mg/dL (70-99) Calcium Level 8.8 mg/dL (8.5-10.1) Total Bilirubin 0.6 mg/dL (0.2-1.0) Aspartate Amino Transf (AST/SGOT) 63 U/L (15-37) Alanine Aminotransferase (ALT/SGPT) 80 U/L (16-63) Alkaline Phosphatase 61 U/L (46-116) Total Protein 7.4 g/dL (6.4-8.2) Albumin 4.1 g/dL (3.4-5.0) Albumin/Globulin Ratio 1.2 (1.0-1.7) Test 04/21/20 07:32 04/21/20 11:45 Glucose (Fingerstick) 197 mg/dL (70-99) 220 mg/dL (70-99) Review of Systems Review of Systems: Pt denies pain, pt denies weakness Assessment and Plan Assessmemt and Plan Assessment: COPD Hyponatremia Plan: Hope to discharge if cleared by Pulm. For now: 6 minute walk test, breathing treatment, home meds, DVT prophylaxis, full code. Awaiting possible discharge. Problems Medical Problems: (1) COPD with acute exacerbation Status: Acute (2) Hyponatremia Status: Acute (3) Person under investigation for COVID-19 Status: Acute Comment Review of Relevant I have reviewed the following items arya (where applicable) has been applied. Medications: Current Medications Medications (Trade) Dose Ordered Sig/Hailee Route PRN Reason Start Time Stop Time Status Last Admin Dose Admin Budesonide (Pulmicort) 0.5 mg RTBID NEB 04/20/20 20:00 04/21/20 07:30 MARYANNE DIETZ III DO Apr 21, 2020 12:08
[2020-04-21] MEDS: THIAMINE INJ 200 MG in IV DEXTROSE 5% 50 ML IV SCH ×2 (12:25→22:29)
--- NOTE | 2020-04-21 13:17 | PDOC ---
Renal-Progress Notes Subjective Notes Notes NO NEW COMPLAINTS History of Present Illness Hx of present illness STABLE Vitals Vitals Vital Signs Date Time Temp Pulse Resp B/P (MAP) Pulse Ox O2 Delivery O2 Flow Rate FiO2 04/21/20 11:22 100 Nasal Cannula 2.0 04/21/20 09:36 104 166/96 04/21/20 08:00 98.0 16 98.0 Weight Weight [ ] I.O. Intake and Output Intake and Output 04/21/20 07:00 Intake Total 240 ml Output Total 550 ml Balance -310 ml Intake Oral 240 ml Output Urine Total 550 ml # Voids 2 Labs Labs Laboratory Tests Test 04/20/20 16:42 04/20/20 20:16 04/21/20 07:25 04/21/20 07:32 Glucose (Fingerstick) 196 mg/dL (70-99) 167 mg/dL (70-99) 197 mg/dL (70-99) White Blood Count 14.1 x10^3/uL (4.0-11.0) Red Blood Count 4.67 x10^6/uL (4.30-5.70) Hemoglobin 13.8 g/dL (13.0-17.5) Hematocrit 40.0 % (39.0-53.0) Mean Corpuscular Volume 86 fL (79-100) Mean Corpuscular Hemoglobin 30 pg (25-35) Mean Corpuscular Hemoglobin Concent 35 g/dL (31-37) Red Cell Distribution Width 14.5 % (11.5-14.5) Platelet Count 368 x10^3/uL (140-400) Neutrophils (%) (Auto) 94 % (31-73) Lymphocytes (%) (Auto) 2 % (24-48) Monocytes (%) (Auto) 4 % (0-9) Eosinophils (%) (Auto) 0 % (0-3) Basophils (%) (Auto) 0 % (0-3) Neutrophils # (Auto) 13.2 x10^3/uL (1.8-7.7) Lymphocytes # (Auto) 0.3 x10^3/uL (1.0-4.8) Monocytes # (Auto) 0.6 x10^3/uL (0.0-1.1) Eosinophils # (Auto) 0.0 x10^3/uL (0.0-0.7) Basophils # (Auto) 0.0 x10^3/uL (0.0-0.2) Sodium Level 130 mmol/L (136-145) Potassium Level 3.3 mmol/L (3.5-5.1) Chloride Level 90 mmol/L (98-107) Carbon Dioxide Level 33 mmol/L (21-32) Anion Gap 7 (6-14) Blood Urea Nitrogen 8 mg/dL (8-26) Creatinine 0.8 mg/dL (0.7-1.3) Estimated GFR (Cockcroft-Gault) 117.4 BUN/Creatinine Ratio 10 (6-20) Glucose Level 182 mg/dL (70-99) Calcium Level 8.8 mg/dL (8.5-10.1) Total Bilirubin 0.6 mg/dL (0.2-1.0) Aspartate Amino Transf (AST/SGOT) 63 U/L (15-37) Alanine Aminotransferase (ALT/SGPT) 80 U/L (16-63) Alkaline Phosphatase 61 U/L (46-116) Total Protein 7.4 g/dL (6.4-8.2) Albumin 4.1 g/dL (3.4-5.0) Albumin/Globulin Ratio 1.2 (1.0-1.7) Test 04/21/20 11:45 Glucose (Fingerstick) 220 mg/dL (70-99) Micro Micro Microbiology 04/19/20 Blood Culture - Preliminary, Resulted NO GROWTH AFTER 2 DAYS Review of Systems Constitutional: yes: alert Ears/Nose/Throat: Yes: no symptom reported Eyes: Yes: no symptom reported Pulmonary: Yes no symptom reported Cardiovascular: Yes no symptom reported Genitourinary: Yes: no symptom reported Musculoskeletal: Yes: no symptom reported Psychiatric/Neurological: Yes: no symptom reported Endocrine: Yes: no symptom reported Physical Exam General Appearance: no apparent distress Skin: warm Respiratory: decreased breath sounds Heart: S1S2 Abdomen: soft, bowel sounds present Genitourinary: bladder flat Extremities: pulses present Musculoskeletal: Osteoarthritis Assessment Assessment IMP HYPONATREMIA-IMPROVED WITH NA OF 130 FROM 120 ACUTE HYPOXIC RESP FAILURE AECOPD PLAN CONT FLUID RESTRICTION WILL FOLLOW TERESE NAYAK MD Apr 21, 2020 13:17
[2020-04-21 19:00] VITALS: BP 161/90
[2020-04-21] MEDS: MONTELUKAST SODIUM 10 MG TABLET. PO SCH (20:51)
[2020-04-21] MEDS: ATORVASTATIN CALCIUM 40 MG TABLET. PO SCH (20:51)
[2020-04-21] MEDS: ENOXAPARIN 40 MG/0.4 ML SYRINGE. SQ SCH (21:15)
[2020-04-21 22:46] VITALS: BP 159/89
[2020-04-21] MEDS: guaiFENesin ORAL 200 MG/10 ML LIQUID. PO PRN (23:05)
[2020-04-22] MEDS: methylPREDNISolone SOD SUCC PF 40 MG/ML VIAL. IV SCH ×3 (00:13→12:05)
[2020-04-22] MEDS: ASCORBIC ACID 500 MG TABLET PO SCH ×3 (00:13→12:03)
[2020-04-22] MEDS: LORazepam 1 MG TABLET PO PRN (01:47)
[2020-04-22 03:00] VITALS: BP 154/92
[2020-04-22] MEDS: IPRATRPIUM/ALBUTEROL 0.5/2.5MG 3 ML NEBU. NEB SCH ×4 (03:50→11:20)
[2020-04-22 05:04] LABS: CALCIUM 8.6 mg/dL (8.5-10.1); CREATININE 0.9 mg/dL (0.7-1.3); GFR 102.5; POTASSIUM 3.1 mmol/L (3.5-5.1)
[2020-04-22] MEDS: PANTOPRAZOLE 40 MG TABLET.DR. PO SCH (06:13)
[2020-04-22 07:00] VITALS: BP 149/96
[2020-04-22] MEDS: BUDESONIDE 0.5 MG/2 ML NEBU. NEB SCH (07:19)
[2020-04-22] MEDS: ASPIRIN CHEWABLE 81 MG TABLET. PO SCH (08:24)
[2020-04-22] MEDS: LACTOBACILLUS RHAMNOSUS GG 1 CAPSULE. PO SCH (08:24)
[2020-04-22] MEDS: amLODIPine BESYLATE 10 MG TABLET PO SCH (08:24)
[2020-04-22] MEDS: CHOLECALCIFEROL (VITAMIN D3) 1,000 UNIT TABLET PO SCH (08:24)
[2020-04-22] MEDS: ZINC SULFATE 220 MG CAPSULE. PO SCH (08:24)
[2020-04-22] MEDS: INSULIN LISPRO 300 UNITS/3 ML VIAL. SQ SCH ×2 (08:27→12:09)
[2020-04-22] MEDS: THIAMINE INJ 200 MG in IV DEXTROSE 5% 50 ML IV SCH (08:43)
[2020-04-22 10:36] VITALS: BP 168/97
--- NOTE | 2020-04-22 11:55 | PDOC ---
[employer] [facility] PROGRESS NOTE Date of Service DOS: DATE: 04/22/20 TIME: 11:46 Chief Complaint Chief Complaint Acute hypoxemic respiratory failure, improved COVID-19 negative as of 04/18/2020 Severe hyponatremia - improving Contraction alkalosis Hyperglycemia Asthma, COPD, Diabetes-Type II Hypomagnesemia Plan Supportive measures Breathing treatments Steroids Lovenox Famotidine Statin therapy Empiric antibiotics Home meds DVT prophylaxis Full code History of Present Illness History of Present Illness 04/22/2020 Patient seen and examined Discussed with RN Chart reviewed Patient was still coughing and wheezing Sodium levels have improved Took a 6 min walk yesterday 04/21/20 Pt seen and examined. Reviewed chart, discussed with RN. Sitting up in bed, NAD. Pt took shower this AM and claims to be back to his baseline. Pt claims to be coughing less, but minor wheezing noted on exam. Quit smoking 5 years ago. No acute events reported overnight, case discussed with nursing staff patient in no acute distress no complaints during my visit Vitals/I&O Vitals/I&O: Vital Signs Date Time Temp Pulse Resp B/P (MAP) Pulse Ox O2 Delivery O2 Flow Rate FiO2 04/22/20 11:21 98 Nasal Cannula 1.0 04/22/20 10:36 98.1 109 19 168/97 (120) 98.1 I & O 04/21/20 04/21/20 04/22/20 15:00 23:00 07:00 Intake Total 302 ml 240 ml Output Total 375 ml Balance 302 ml 240 ml -375 ml Physical Exam General: Alert, Oriented X3, No acute distress Heart: Regular rate Lungs: Wheezing (faint) Abdomen: No tenderness Extremities: No cyanosis Skin: No rashes Labs Labs: Laboratory Tests Test 04/21/20 16:48 04/21/20 20:43 04/22/20 04:15 04/22/20 07:12 Glucose (Fingerstick) 173 mg/dL (70-99) 271 mg/dL (70-99) 192 mg/dL (70-99) Sodium Level 137 mmol/L (136-145) Potassium Level 3.1 mmol/L (3.5-5.1) Chloride Level 98 mmol/L (98-107) Carbon Dioxide Level 35 mmol/L (21-32) Anion Gap 4 (6-14) Blood Urea Nitrogen 10 mg/dL (8-26) Creatinine 0.9 mg/dL (0.7-1.3) Estimated GFR (Cockcroft-Gault) 102.5 Glucose Level 189 mg/dL (70-99) Calcium Level 8.6 mg/dL (8.5-10.1) Test 04/22/20 11:16 Glucose (Fingerstick) 223 mg/dL (70-99) Review of Systems Review of Systems: Denies pain Denies weakness Assessment and Plan Assessmemt and Plan Problems Medical Problems: (1) COPD with acute exacerbation Status: Acute (2) Hyponatremia Status: Acute Acute hypoxemic respiratory failure, improved COVID-19 negative as of 04/18/2020 Severe hyponatremia - improving Contraction alkalosis Hyperglycemia Asthma, COPD, Diabetes-Type II Hypomagnesemia Plan Supportive measures Breathing treatments Steroids Lovenox Famotidine Statin therapy Empiric antibiotics Home meds DVT prophylaxis Full code Comment Review of Relevant I have reviewed the following items arya (where applicable) has been applied. Medications: Current Medications Medications (Trade) Dose Ordered Sig/Hailee Route PRN Reason Start Time Stop Time Status Last Admin Dose Admin Insulin Human Lispro (HumaLOG) 0-9 UNITS QIDACHS SQ 04/21/20 21:00 04/22/20 08:27 MARYANNE DIETZ III DO Apr 22, 2020 11:55
--- NOTE | 2020-04-22 12:07 | NUR ---
[facility] following. Discussed with RN, pt discharging home today. [facility]O met with pt, pt agreeable to [facility] for oxygen provider, due to tank available to take home - LEO faxed referral to [facility], awaiting acceptance. Pt questioning about meals through his insurance, after discharge from hospital. LEO recommended pt to call his insurance to find out. LEO will continue to follow.
--- NOTE | 2020-04-22 12:07 | PDOC ---
PULMONARY PROGRESS NOTES DATE: 04/22/20 TIME: 12:05 Subjective Improved wheezing and SOB Remains on N/C 5 liters Vitals Vital Signs Date Time Temp Pulse Resp B/P (MAP) Pulse Ox O2 Delivery O2 Flow Rate FiO2 04/22/20 11:21 98 Nasal Cannula 1.0 04/22/20 10:36 98.1 109 19 168/97 (120) 98.1 ROS: No Nausea, No Chest Pain, No Abdominal Pain, No Increase Cough General: Alert, No acute distress Lungs: Wheezing (faint) Cardiovascular: S1, S2 Abdomen: Soft, Non-tender Extremities: No Edema Labs Laboratory Tests Test 04/20/20 12:11 04/20/20 16:42 04/20/20 20:16 04/21/20 07:25 Glucose (Fingerstick) 209 mg/dL (70-99) 196 mg/dL (70-99) 167 mg/dL (70-99) White Blood Count 14.1 x10^3/uL (4.0-11.0) Red Blood Count 4.67 x10^6/uL (4.30-5.70) Hemoglobin 13.8 g/dL (13.0-17.5) Hematocrit 40.0 % (39.0-53.0) Mean Corpuscular Volume 86 fL (79-100) Mean Corpuscular Hemoglobin 30 pg (25-35) Mean Corpuscular Hemoglobin Concent 35 g/dL (31-37) Red Cell Distribution Width 14.5 % (11.5-14.5) Platelet Count 368 x10^3/uL (140-400) Neutrophils (%) (Auto) 94 % (31-73) Lymphocytes (%) (Auto) 2 % (24-48) Monocytes (%) (Auto) 4 % (0-9) Eosinophils (%) (Auto) 0 % (0-3) Basophils (%) (Auto) 0 % (0-3) Neutrophils # (Auto) 13.2 x10^3/uL (1.8-7.7) Lymphocytes # (Auto) 0.3 x10^3/uL (1.0-4.8) Monocytes # (Auto) 0.6 x10^3/uL (0.0-1.1) Eosinophils # (Auto) 0.0 x10^3/uL (0.0-0.7) Basophils # (Auto) 0.0 x10^3/uL (0.0-0.2) Sodium Level 130 mmol/L (136-145) Potassium Level 3.3 mmol/L (3.5-5.1) Chloride Level 90 mmol/L (98-107) Carbon Dioxide Level 33 mmol/L (21-32) Anion Gap 7 (6-14) Blood Urea Nitrogen 8 mg/dL (8-26) Creatinine 0.8 mg/dL (0.7-1.3) Estimated GFR (Cockcroft-Gault) 117.4 BUN/Creatinine Ratio 10 (6-20) Glucose Level 182 mg/dL (70-99) Calcium Level 8.8 mg/dL (8.5-10.1) Total Bilirubin 0.6 mg/dL (0.2-1.0) Aspartate Amino Transf (AST/SGOT) 63 U/L (15-37) Alanine Aminotransferase (ALT/SGPT) 80 U/L (16-63) Alkaline Phosphatase 61 U/L (46-116) Total Protein 7.4 g/dL (6.4-8.2) Albumin 4.1 g/dL (3.4-5.0) Albumin/Globulin Ratio 1.2 (1.0-1.7) Test 04/21/20 07:32 04/21/20 11:45 04/21/20 16:48 04/21/20 20:43 Glucose (Fingerstick) 197 mg/dL (70-99) 220 mg/dL (70-99) 173 mg/dL (70-99) 271 mg/dL (70-99) Test 04/22/20 04:15 04/22/20 07:12 04/22/20 11:16 Sodium Level 137 mmol/L (136-145) Potassium Level 3.1 mmol/L (3.5-5.1) Chloride Level 98 mmol/L (98-107) Carbon Dioxide Level 35 mmol/L (21-32) Anion Gap 4 (6-14) Blood Urea Nitrogen 10 mg/dL (8-26) Creatinine 0.9 mg/dL (0.7-1.3) Estimated GFR (Cockcroft-Gault) 102.5 Glucose Level 189 mg/dL (70-99) Calcium Level 8.6 mg/dL (8.5-10.1) Glucose (Fingerstick) 192 mg/dL (70-99) 223 mg/dL (70-99) Laboratory Tests Test 04/21/20 16:48 04/21/20 20:43 04/22/20 04:15 04/22/20 07:12 Glucose (Fingerstick) 173 mg/dL (70-99) 271 mg/dL (70-99) 192 mg/dL (70-99) Sodium Level 137 mmol/L (136-145) Potassium Level 3.1 mmol/L (3.5-5.1) Chloride Level 98 mmol/L (98-107) Carbon Dioxide Level 35 mmol/L (21-32) Anion Gap 4 (6-14) Blood Urea Nitrogen 10 mg/dL (8-26) Creatinine 0.9 mg/dL (0.7-1.3) Estimated GFR (Cockcroft-Gault) 102.5 Glucose Level 189 mg/dL (70-99) Calcium Level 8.6 mg/dL (8.5-10.1) Test 04/22/20 11:16 Glucose (Fingerstick) 223 mg/dL (70-99) Medications Active Scripts Medications Dose Route/Sig Max Daily Dose Days Date Category Metformin Hcl Er (Metformin Hcl) 500 Mg Tab.er.24h 500 Mg PO BIDWMEALS 01/07/20 Reported Prednisone (Prednisone) 10 Mg Tablet 30 Mg PO DAILY 5 01/07/20 Reported Trelegy Ellipta 100-62.5-25 (Fluticasone/Umeclidin/Vilanter) 1 Each Blst.w.dev 1 Each IH PRN DAILY PRN 01/03/20 Reported Montelukast Sodium Tablet (Montelukast Sodium) 10 Mg Tablet 10 Mg PO HS 01/03/20 Reported Pantoprazole Sodium (Pantoprazole Sodium) 40 Mg Tablet.dr 40 Mg PO DAILYAC 01/03/20 Reported Metoprolol Succinate ( Xl ) (Metoprolol Succinate) 25 Mg Tab.er.24h 1 Tab PO DAILY 06/18/17 Rx Ventolin Hfa Inhaler (Albuterol Sulfate) 18 Gm Hfa.aer.ad 2 Puff PO Q4HRS PRN 03/18/16 Reported Duoneb 0.5-3(2.5) Mg/3 Ml (Albuterol/Ipratropium) 3 Ml Ampul.neb 3 Ml NEB QID 03/18/16 Reported Amlodipine Besylate 10 Mg Tablet 10 Mg PO DAILY 03/18/16 Reported Aspirin 81 Mg Tab.chew 1 Tab PO DAILY 03/18/16 Reported Atorvastatin Calcium 40 Mg Tablet 1 Tab PO DAILY 10/09/14 Reported Comments CXR 04/20/2020 Impression: No acute radiographic abnormality is seen. Impression . IMPRESSION: 1. Acute hypoxic respiratory failure secondary to acute exacerbation of chronic obstructive pulmonary disease.-- now with improved wheezing 2. 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 3. Hyponatremia, unclear etiology. He has hypochloremia as well. Would benefit from normal saline. 4. Abnormal liver function tests. Plan . RECOMMENDATIONS: Continue with present nasal cannula, , wean as tolerated, 6 min walk done. needs O2 DDimer normal. No need for any further w/u NEBS hold metoprolol till wheezing resolve CXR reviewed Cont. Empiric antibiotics. GI/ DVT prophylaxis. Will need outpatient PFTS ok with dc on PO steroids Discussed with RN . GHANSHYAM LOMBARDI MD Apr 22, 2020 12:07
--- NOTE | 2020-04-22 13:37 | PDOC ---
Renal-Progress Notes Subjective Notes Notes NO NEW COMPLAINTS History of Present Illness Hx of present illness STABLE Vitals Vitals Vital Signs Date Time Temp Pulse Resp B/P (MAP) Pulse Ox O2 Delivery O2 Flow Rate FiO2 04/22/20 11:21 98 Nasal Cannula 1.0 04/22/20 10:36 98.1 109 19 168/97 (120) 98.1 Weight Weight [ ] I.O. Intake and Output Intake and Output 04/22/20 07:00 Intake Total 542 ml Output Total 375 ml Balance 167 ml Intake Oral 240 ml IV Total 302 ml Output Urine Total 375 ml # Voids 3 Labs Labs Laboratory Tests Test 04/21/20 16:48 04/21/20 20:43 04/22/20 04:15 04/22/20 07:12 Glucose (Fingerstick) 173 mg/dL (70-99) 271 mg/dL (70-99) 192 mg/dL (70-99) Sodium Level 137 mmol/L (136-145) Potassium Level 3.1 mmol/L (3.5-5.1) Chloride Level 98 mmol/L (98-107) Carbon Dioxide Level 35 mmol/L (21-32) Anion Gap 4 (6-14) Blood Urea Nitrogen 10 mg/dL (8-26) Creatinine 0.9 mg/dL (0.7-1.3) Estimated GFR (Cockcroft-Gault) 102.5 Glucose Level 189 mg/dL (70-99) Calcium Level 8.6 mg/dL (8.5-10.1) Test 04/22/20 11:16 Glucose (Fingerstick) 223 mg/dL (70-99) Micro Micro Microbiology 04/19/20 Blood Culture - Preliminary, Resulted NO GROWTH AFTER 3 DAYS Review of Systems Constitutional: yes: alert Ears/Nose/Throat: Yes: no symptom reported Eyes: Yes: no symptom reported Pulmonary: Yes no symptom reported Cardiovascular: Yes no symptom reported Genitourinary: Yes: no symptom reported Musculoskeletal: Yes: no symptom reported Psychiatric/Neurological: Yes: no symptom reported Endocrine: Yes: no symptom reported Physical Exam General Appearance: no apparent distress Skin: warm Respiratory: decreased breath sounds Heart: S1S2 Abdomen: soft, bowel sounds present Genitourinary: bladder flat Extremities: pulses present Musculoskeletal: Osteoarthritis Assessment Assessment IMP HYPONATREMIA-RESOLVED WITH NA OF 137 FROM 120 HYPOKALEMIA ACUTE HYPOXIC RESP FAILURE AECOPD PLAN REPLACE CONT FLUID RESTRICTION WILL FOLLOW TERESE NAYAK MD Apr 22, 2020 13:37
[2020-04-22] MEDS ORDERED: POTASSIUM CHLORIDE 20 MEQ TABLET.ER. PO ONE (14:30)
[2020-04-22 15:00] VITALS: BP 158/94
--- NOTE | 2020-04-22 15:15 | NUR ---
Discharge Note: JAY MORSE Discharge instructions and discharge home medications reviewed with Patient and a copy given. All questions have been answered and understanding verbalized. The following instructions and handouts were given: information about follow up appointments, medications (called in prescription for prednisone taper to [facility]), oxygen usage, etc. Discontinued lines and drains: IV line in left AC removed, catheter tip intact. Patient discharged to home with self care with family member, wheelchair used for mobility to discharge vehicle.
== END 2020-04-22 15:15 | disposition home or self-care (01) | DRG 189 ==
LOC: ER 13:16 → 6 SOUTH 15:17 → 1 WEST ICU 18:01 → 4 NORTH 04-19 16:45
PROVIDERS: ADMIT Internal Medicine; ATTEND Internal Medicine
DX: J96.21 Acute and chronic respiratory failure with hypoxia (principal); E87.1 Hypo-osmolality and hyponatremia; J44.1 Chronic obstructive pulmonary disease with (acute) exacerbation; E87.3 Alkalosis; E11.65 Type 2 diabetes mellitus with hyperglycemia; E78.5 Hyperlipidemia, unspecified; E83.42 Hypomagnesemia; E87.6 Hypokalemia; E87.8 Other disorders of electrolyte and fluid balance, not elsewhere classified; I10 Essential (primary) hypertension; Z83.3 Family history of diabetes mellitus; Z87.891 Personal history of nicotine dependence; M19.90 Unspecified osteoarthritis, unspecified site; Z20.828 Contact with and (suspected) exposure to other viral communicable diseases
CPT/HCPCS: 36415; 36600; 71045; 80048; 80053; 81001; 82436; 82553; 82607; 82805; 82962; 83735; 83880; 83930; 83935; 84133; 84295; 84300; 84443; 84484; 85007; 85025; 85379; 85610; 85730; 87040; 93005; 94618; 94640; 94760; 96365; 96375; 99285; J0456; J1650; J1815; J2920; J2930; J3411; J3475; J3490; J7030; J7050; J7060; G0378; J7613; J7626; U0003-CS

== ENCOUNTER 2020-05-16 23:00 | Emergency (ER) | payer MEDICARE ==
[~2020-05-16] VITALS: Ht 172.7 cm; Wt 68.1 kg
[~2020-05-16 23:00] MED LIST changes: +AMIODARONE 150 MG/3 ML VIAL ONE; +ATROPINE 0.5 MG/5 ML DISP.SYRINGE. ONE; +EPINEPHrine SYRINGE 1 MG/10 ML SYRINGE ONE
[2020-05-16 23:22] LABS: BASO % 0 % (0-3); EOS # 0.4 x10^3/uL (0.0-0.7); EOS % 6 % (0-3); HEMATOCRIT 38.6 % (39.0-53.0); HEMOGLOBIN 12.3 g/dL (13.0-17.5); LYMPH # 4.6 x10^3/uL (1.0-4.8); LYMPH % 65 % (24-48); MEAN CORPUSCULAR HEMOGLOBIN 29 pg (25-35); MEAN CORPUSCULAR HGB CONC 32 g/dL (31-37); MEAN CORPUSCULAR VOLUME 92 fL (79-100); MONO # 0.1 x10^3/uL (0.0-1.1); MONO % 2 % (0-9); NEUT # 1.9 x10^3/uL (1.8-7.7); NEUT % 27 % (31-73); PLATELET COUNT 371 x10^3/uL (140-400); RED BLOOD COUNT 4.18 x10^6/uL (4.30-5.70); RED CELL DISTRIBUTION WIDTH 15.6 % (11.5-14.5)
[2020-05-16 23:44] LABS: % EOS 4 % (0-5); % LYMPHS 68 % (24-48); % METAS 1 % (0-0); % MONOS 2 % (0-10); % SEGS 25 % (35-66)
[2020-05-16 23:47] LABS: PLT ESTIMATE ADEQUATE (ADEQUATE); POLYCHROMASIA SLIGHT
[2020-05-16] MEDS ORDERED: IPRATRPIUM/ALBUTEROL 0.5/2.5MG 3 ML NEBU. ONE (23:47)
[2020-05-16 23:55] LABS: CALCIUM 8.7 mg/dL (8.5-10.1); CREATININE 1.4 mg/dL (0.7-1.3); GFR 61.5; POTASSIUM 4.4 mmol/L (3.5-5.1)
[2020-05-17 00:01] LABS: ALBUMIN 2.9 g/dL (3.4-5.0); ALBUMIN/GLOBULIN RATIO 1.2 (1.0-1.7); TOTAL BILIRUBIN 0.4 mg/dL (0.2-1.0); TOTAL PROTEIN 5.3 g/dL (6.4-8.2)
[2020-05-17 00:05] LABS: BASE EXCESS ABG -20 mmol/L (-3-3); HCO3 ABG 13 mmol/L (21-28); PO2 ABG 116 mmHg (65-108); SAT O2 ABG 94 % (92-99)
[2020-05-17 02:38] LABS: FIO2 ABG 100; PCO2 ABG 66 mmHg (35-46)
--- NOTE | 2020-05-17 02:51 | PHYS DOC ---
Past Medical History Past Medical History: Asthma, COPD, Diabetes-Type II Additional Past Medical Histor: smoker Past Surgical History: Other Additional Past Surgical Histo: L calf thrombectomy, RT FEM POP,CLIP PLACED IN COLON Smoking Status: Former Smoker Alcohol Use: Rarely Drug Use: None General Adult EDM: Chief Complaint: CPR/FULL ARREST HPI: HPI: Patient is a 65-year-old male with past medical history of COPD who presents to the emergency room in cardiac arrest. Cording to EMS he had a witnessed arrest though CPR was delayed by 5 minutes. Report was the patient was doing fine prior to arrest. He did recently get out of the hospital for COPD. EMS has given the patient 4 of epinephrine and has shocked the patient once for ventricular fibrillation. They have been doing CPR on the patient for 45 minutes prior to arrival. They did have a pulse back briefly just before arriving but lost it during transport into the hospital. Review of Systems: Review of Systems: Unable to obtain Heart Score: Risk Factors: Risk Factors: DM, Current or recent (<one month) smoker, HTN, HLP, family history of CAD, obesity. Risk Scores: Score 0 - 3: 2.5% MACE over next 6 weeks - Discharge Home Score 4 - 6: 20.3% MACE over next 6 weeks - Admit for Clinical Observation Score 7 - 10: 72.7% MACE over next 6 weeks - Early Invasive Strategies Current Medications: Current Medications Medications (Trade) Dose Ordered Sig/Hailee Start Time Stop Time Status Last Admin Dose Admin Albuterol/ Ipratropium (Duoneb) 3 ml STK-MED ONCE 05/16/20 23:47 05/16/20 23:47 DC Allergies: Allergies: Allergies Coded Allergies Type Severity Reaction Last Updated Verified Penicillins Allergy Intermediate rash 11/15/14 Yes Physical Exam: PE: General: unresponsive, toxic appearing, CPR in progress HEENT: Normocephalic, atraumatic, no drainage from eyes Neck: Supple, atraumatic, trachea midline Cardiology: No radial/femoral pulses bilaterally, no heart sounds Pulmonary: Bilateral breath sounds Abdomen: soft, nondistended Skin: intact, dry, cool Extremities: No deformities Neurology: nonresponsive, nonverbal, no movement, GCS 3 Current Patient Data: Labs: Laboratory Tests Test 05/16/20 23:07 05/16/20 23:30 05/16/20 23:40 05/16/20 23:44 White Blood Count 7.0 x10^3/uL (4.0-11.0) Red Blood Count 4.18 x10^6/uL (4.30-5.70) L Hemoglobin 12.3 g/dL (13.0-17.5) L Hematocrit 38.6 % (39.0-53.0) L Mean Corpuscular Volume 92 fL (79-100) Mean Corpuscular Hemoglobin 29 pg (25-35) Mean Corpuscular Hemoglobin Concent 32 g/dL (31-37) Red Cell Distribution Width 15.6 % (11.5-14.5) H Platelet Count 371 x10^3/uL (140-400) Neutrophils (%) (Auto) 27 % (31-73) L Lymphocytes (%) (Auto) 65 % (24-48) H Monocytes (%) (Auto) 2 % (0-9) Eosinophils (%) (Auto) 6 % (0-3) H Basophils (%) (Auto) 0 % (0-3) Neutrophils # (Auto) 1.9 x10^3/uL (1.8-7.7) Lymphocytes # (Auto) 4.6 x10^3/uL (1.0-4.8) Monocytes # (Auto) 0.1 x10^3/uL (0.0-1.1) Eosinophils # (Auto) 0.4 x10^3/uL (0.0-0.7) Basophils # (Auto) 0.0 x10^3/uL (0.0-0.2) Segmented Neutrophils % 25 % (35-66) L Lymphocytes % 68 % (24-48) H Monocytes % 2 % (0-10) Eosinophils % 4 % (0-5) Metamyelocytes % 1 % (0-0) H Platelet Estimate Adequate (ADEQUATE) Polychromasia Slight Glucose (Fingerstick) 181 mg/dL (70-99) H Sodium Level 143 mmol/L (136-145) Potassium Level 4.4 mmol/L (3.5-5.1) Chloride Level 102 mmol/L (98-107) Carbon Dioxide Level 17 mmol/L (21-32) L Anion Gap 24 (6-14) H Blood Urea Nitrogen 6 mg/dL (8-26) L Creatinine 1.4 mg/dL (0.7-1.3) H Estimated GFR (Cockcroft-Gault) 61.5 BUN/Creatinine Ratio 4 (6-20) L Glucose Level 256 mg/dL (70-99) H Calcium Level 8.7 mg/dL (8.5-10.1) Total Bilirubin 0.4 mg/dL (0.2-1.0) Aspartate Amino Transferase (AST) 73 U/L (15-37) H Alanine Aminotransferase (ALT) 87 U/L (16-63) H Alkaline Phosphatase 74 U/L (46-116) FC-Sol-Y-Type Natriuretic Peptide 37 pg/mL (0-124) Total Protein 5.3 g/dL (6.4-8.2) L Albumin 2.9 g/dL (3.4-5.0) L Albumin/Globulin Ratio 1.2 (1.0-1.7) O2 Saturation 94 % (92-99) Arterial Blood pH 6.92 (7.35-7.45) *L Arterial Blood pCO2 at Patient Temp 66 mmHg (35-46) *H Arterial Blood pO2 at Patient Temp 116 mmHg (65-108) H Arterial Blood HCO3 13 mmol/L (21-28) L Arterial Blood Base Excess -20 mmol/L (-3-3) L FiO2 100 Laboratory Tests 05/16/20 23:07 Laboratory Tests 05/16/20 23:40 EKG: EKG: [] Radiology/Procedures: Radiology/Procedures: [] Course & Med Decision Making: Course & Med Decision Making Pertinent Labs and Imaging studies reviewed. (See chart for details) Patient is a 65 who presents to the emergency room in cardiac arrest. Patient had a witnessed arrest and did receive compressions prior to EMS arrival. Patient received epinephrine and has been in asystole and ventricular fib rillation during transport. Upon arrival to the ED a pulse check was done and patient did not have a pulse and was in asystole. Bedside ultrasound was done to evaluate cardiac motion and patient did have cardiac motion. Patient did have bilateral breath sounds on exam. Ray airway was switched out for an ET tube. Patient did intermittently get a pulse back while in the emergency room. Given his ventricular fibrillation he was given a full dose of amiodarone during CPR. He was also given bicarbonate. After extensive efforts by EMS and the emergency room patient was pronounced at 0013. At that time there was no cardiac activity on ultrasound, patient had nonreactive pupils, no sp ontaneous breathing, and was in asystole. Family was present at time of . Family was notified and they were offered a chance to see their loved one and a doctor of naprapathic medicine was offered. All of their questions were answered. Dragon Disclaimer: Dragon Disclaimer: This electronic medical record was generated, in whole or in part, using a voice recognition dictation system. Departure Departure Impression: Primary Impression: Respiratory failure, [id number] Disposition: 20 Condition: Referrals: DHAVAL BILLINGS MD (PCP) Justicifation of Admission Dx: Justifications for Admission: Justification of Admission Dx: Yes Acute COPD Exacerbation: Acute COPD Exacerbation Critical Care Time Critical Care: Authorized and Performed by: Tulio Perrin MD Total critical care time: approximately 60 minutes Due to a high probability of clinically significant, life threatening deterioration, the patient required my highest level of preparedness to intervene emergently and I personally spent this critical care time directly and personally managing the patient. This critical care time included obtaining a history; examining the patient; pulse oximetry; ventilator management if necessary; ordering and review of studies; arranging urgent treatment with development of a management plan; evaluation of patient's response to treatment; frequent reassessment; discussion with patient/family; and, discussions with other providers. This critical care time was performed to assess and manage the high probability of imminent, life-threatening deterioration that could result in multi-organ failure. It was exclusive of separately billable procedures and treating other patients and teaching time. Please see MDM section and the rest of the note for further information on patient assessment and treatment. PROCEDURE Procedure Intubation Performed by: Tulio Perrin MD Consent: Verbal consent not obtained. The procedure was performed in an emergent situation. Required items: required blood products, implants, devices, and special equipment available Patient identity confirmed: arm band Time out: Immediately prior to procedure a "time out" was called to verify the correct patient, procedure, equipment, health support specialist and site/side marked as required. Indications: respiratory failure and airway protection Intubation method: direct Patient status: paralyzed (RSI) Preoxygenation: [id number] Sedatives: etomidate Paralytic: succinylcoline Laryngoscope size: Mac 4 Tube size: 7.5 mm Tube type: cuffed Number of attempts: 1 Cords visualized: yes Post-procedure assessment: chest rise, BS = bilaterally none over epigastrum, +CO2 detector Breath sounds: equal and absent over the epigastrium Cuff inflated: yes Tube secured with: adhesive tape Chest x-ray interpreted by me. Chest x-ray findings: endotracheal tube in appropriate position Patient tolerance: Patient tolerated the procedure well with no immediate complications. TULIO PERRIN MD May 17, 2020 02:50
--- NOTE | 2020-05-17 07:22 | EKG ---
[facility] [address] [place] [address] Test Date: 2020-05-16 Test Time: 23:12:52 Pat Name: JAY MORSE Department: Room: Gender: M [employer]: : 1955 Requested By: TULIO NIELSEN Order Number: [id number] Reading MD: Measurements Intervals [place] Rate: 100 P: 110 CO: 192 QRS: -24 QRSD: 82 T: 78 QT: 356 QTc: 462 Interpretive Statements SINUS RHYTHM LEFTWARD AXIS QRS(T) CONTOUR ABNORMALITY CONSISTENT WITH ANTEROSEPTAL INFARCT AGE UNDETERMINED T ABNORMALITY IN HIGH LATERAL LEADS ABNORMAL ECG RI6.02 No previous ECG available for comparison
== END 2020-05-18 03:30 | disposition expired ==
LOC: ER 23:00
DX: J96.20 Acute and chronic respiratory failure, unspecified whether with hypoxia or hypercapnia (principal); J44.9 Chronic obstructive pulmonary disease, unspecified; E11.9 Type 2 diabetes mellitus without complications; Z87.891 Personal history of nicotine dependence; Z88.0 Allergy status to penicillin
CPT/HCPCS: 31500; 36415; 36600; 80053; 82805; 82962; 83880; 85007; 85025; 92950; 93005; 94002; J0171; J0282; J0461; 99291-25